=== PATIENT | male | born 1930 | race Caucasian/White ===

== ENCOUNTER 2016-06-29 18:30 | Emergency (ER) | payer MEDICARE, OTHER ==
[~2016-06-29] VITALS: Ht 167.6 cm; Wt 80.4 kg
[~2016-06-29 18:30] MED LIST: AGGR20025 PO; ALLO100 PO; AMLO5TAB96 PO; ASPI81TA82 PO; ATEN1TAB73 PO; BROV15NE INH; CALTTAB PO; CIPR500T4 PO; EZET10 PO; LEVE250 PO; LIPI80TA16 PO; MAVI1TAB PO; POTA-243 PO; SYNT25TA PO; TORS20 PO; VITA100020 IJ; XANA1TAB6 PO
[2016-06-29 18:35] VITALS: BP 155/80; PULSE 70; RESP 20; TEMP 97.9; O2SAT 96
--- NOTE | 2016-06-29 18:50 | PD ---
HPI Chief Complaint: Complaint Time Seen by Provider: 18:43 Travel History International Travel<30 days: No Contact w/Intl Traveler<30days: No Traveled to known affect area: No History of Present Illness HPI 86-year-old male here for evaluation of inability to urinate. The patient reports history of bladder cancer and prostate cancer which were treated in the past. He was seen by his urologist Dr. Silver yesterday and had cystoscopy performed. He states he was able to urinate after the procedure yesterday, however this morning he is only been able to urinate very small amounts. He has had worsening lower abdominal discomfort/pressure/bloating throughout the day today. He denies hematuria. PFSH Past Medical History Hx Anticoagulant Therapy: Yes (PLAVIX; 81 MG ASA) Arthritis: Yes Asthma: Yes Autoimmune Disease: No Blood Disorders: No Cancer: No Cardiac Catheterization: Yes (stents 2008) Cardiovascular Problems: Yes (OPEN HEART; MULTIPLE STENTS; HTN) High Cholesterol: Yes Chemotherapy: No Chest Pain: Yes Congestive Heart Failure: Yes COPD: Yes (ASBESTOSIS; EMPHYSEMA) Cerebrovascular Accident: Yes (3 TIA'S ) Coronary Artery Disease: Yes Diminished Hearing: No Endocrine: No Gastrointestinal Disorders: Yes GERD: No Gout: Yes Genitourinary: No Hiatal Hernia: No Hypertension: Yes Immune Disorder: No Implanted Vascular Access Dvce: Yes Musculoskeletal: Yes Neurologic: Yes Psychiatric: No Reproductive: No Respiratory: Yes (ASTHMA, COPD) Myocardial Infarction: Yes Radiation Therapy: No Thyroid Disease: Yes Ulcer: No PNEUMOCCOCAL Vaccine (Year): 3 Past Surgical History AICD: No Arteriovenous Shunt: No Cardiac Surgery: Yes (CABG) Coronary Artery Bypass Graft: Yes ( 1983) Eye Surgery: Yes (L & R Cataract ) Genitourinary Surgery: No Insulin Pump: No Joint Replacement: Yes (L Hip 2002) Pacemaker: No Other Surgery: Yes Social History Alcohol Use: Yes (OCC) Tobacco Use: No Substance Use: No Allergies-Medications (Allergen,Severity, Reaction): Coded Allergies: No Known Allergies (Verified , 06/29/16) Reported Meds & Prescriptions Reported Meds & Active Scripts Active Reported Mavik (Trandolapril) 1 Mg Tab 1 Mg PO DAILY Demadex (Torsemide) 20 Mg Tab 20 Mg PO DAILY Potassium Chloride CR (Potassium Chloride) 10 Meq Tab 10 Meq PO BID Vitamin B-12 ER (Cyanocobalamin) 1,000 Mcg Tab 1,000 Mcg IM/SQ DAILY Synthroid (Levothyroxine Sodium) 25 Mcg Tab 25 Mcg PO DAILY Keppra (Levetiracetam) 500 Mg Tab 500 Mg PO BID Zetia (Ezetimibe) 10 Mg Tab 10 Mg PO DAILY Aggrenox (Dipyridamole/Aspirin) 200-25 Mg Cap 1 Cap PO BID Caltrate 600 (Calcium Carbonate) 1,500 Mg Tab 1 Tab PO BID Lipitor (Atorvastatin Calcium) 80 Mg Tab 80 Mg PO HS Atenolol 25 Mg Tab 12.5 Mg PO DAILY Aspirin 81 Mg Tabdr 81 Mg PO DAILY Brovana Neb (Arformoterol Neb) 15 Mcg/2 Ml Vial 1 Nebule NEB BID Maintenance treatment of bronchoconstriction in COPD. Norvasc (Amlodipine Besylate) 10 Mg Tab 10 Mg PO DAILY Xanax (Alprazolam) 1 Mg Tab 1 Mg PO HS PRN Allopurinol 100 Mg Tab 100 Mg PO DAILY Mavik (Trandolapril) 1 Mg Tab 1 Mg PO DAILY Aspir-81 (Aspirin) 81 Mg Tab 81 Mg PO BID Keppra (Levetiracetam) 250 Mg Tab 500 Mg PO BID Brovana (Arformoterol Tartrate) 15 Mcg Neb 15 Mcg INH BID Caltrate 600+D (Calcium Carbonate/Cholecalciferol) + Tab 1 Tab PO BID Aggrenox (Dipyridamole/Aspirin) 25 Mg/200 Mg Cap 1 Cap PO DAILY ONE CAP DAILY x1 WEEK,THEN 1 CAP PO TWICE DAILY THEREAFTER. Lipitor (Atorvastatin Calcium) 80 Mg Tab 80 Mg PO DAILY Synthroid (Levothyroxine Sodium) 25 Mcg Tab 25 Mcg PO DAILY Vitamin B-12 Extended Rel (Miscellaneous Medication) 1,000 Mcg Inj 1,000 Mcg IJ MONTHLY Xanax 1 mg (Alprazolam) 1 Mg Tab 1 Mg PO HS Zetia (Ezetimibe) 10 Mg Tab 10 Mg PO DAILY Review of Systems Except as stated in HPI: all other systems reviewed are Neg Physical Exam Narrative GENERAL: Well-developed, well-nourished, moderate distress secondary to abdominal discomfort. SKIN: Warm and dry. HEAD: Atraumatic. Normocephalic. EYES: Pupils equal and round. No scleral icterus. No injection or drainage. ENT: Mucous membranes pink and moist. CARDIOVASCULAR: Regular rate and rhythm. No murmur appreciated. GASTROINTESTINAL: Abdomen soft, suprapubic tenderness with palpable distended bladder. Transabdominal bedside ultrasound was performed using the curvilinear ultrasound probe in shows a distended bladder. NEUROLOGICAL: Awake and alert. No obvious cranial nerve deficits. Motor grossly within normal limits. Normal speech. PSYCHIATRIC: Appropriate mood and affect; insight and judgment normal. Data Data Last Documented VS Vital Signs Date Time Temp Pulse Resp B/P Pulse Ox O2 Delivery O2 Flow Rate FiO2 06/29/16 18:35 97.9 70 20 155/80 96 Orders Urinary Catheter Insert/Apply (06/29/16 18:47) Urinalysis - C+S If Indicated (06/29/16 18:50) MDM Medical Decision Making Medical Screen Exam Complete: Yes Emergency Medical Condition: Yes Differential Diagnosis Urinary retention, UTI, prostatitis Narrative Course Rivera catheter placed by my nurse with over 1500 cc of clear/yellow urine output. On reassessment the patient is feeling much better. His abdomen is soft, nondistended, nontender. He was started on Cipro yesterday by his urologist. At this point he is stable for discharge home with outpatient follow -up with his urologist this week. He will be started on Flomax. He was informed on when to return to the emergency department. He verbalizes understanding and agreement with plan. Procedures Procedure Narrative Bedside transabdominal ultrasound: Using the curvilinear ultrasound probe, a bedside transabdominal ultrasound was performed by me and shows a large/fluid-filled/distended bladder. Diagnosis Primary Impression: Urinary retention Referrals: Urologist 3 days Additional Instructions: Follow-up with your urologist this week. Return to the emergency department for worsening symptoms or any other concerns. Scripts Tamsulosin (Flomax)0.4 Mg Cap0.4 Mg PO HS 14 Days Ref 0 Prov:Shaka Lawrence MD 06/29/16 Disposition: 01 DISCHARGE HOME Condition: Stable Shaka Lawrence MD Jun 29, 2016 18:50
[2016-06-29] MEDS ORDERED: AGGR20025 PO (19:09)
[2016-06-29] MEDS ORDERED: ASPI1TAB69 PO (19:09)
[2016-06-29] MEDS ORDERED: ATEN25TA PO (19:09)
[2016-06-29] MEDS ORDERED: TORS1TAB12 PO (19:09)
[2016-06-29] MEDS ORDERED: ALLO100T PO (19:09)
[2016-06-29] MEDS ORDERED: CALTTAB5 PO (19:09)
[2016-06-29] MEDS ORDERED: VITA100022 IM/SQ (19:09)
[2016-06-29] MEDS ORDERED: SYNT25TA PO (19:09)
[2016-06-29] MEDS ORDERED: AMLO10 PO (19:09)
[2016-06-29] MEDS ORDERED: ZETI10TA5 PO (19:09)
[2016-06-29] MEDS ORDERED: MAVI1TAB PO (19:09)
[2016-06-29] MEDS ORDERED: XANA1TAB2 PO (19:09)
[2016-06-29] MEDS ORDERED: LIPI80TA PO (19:09)
[2016-06-29] MEDS ORDERED: POTA10TA8 PO (19:09)
[2016-06-29] MEDS ORDERED: BROV15NE NEB (19:09)
[2016-06-29] MEDS ORDERED: LEVE500 PO (19:09)
[2016-06-29] MEDS ORDERED: CIPR-9 PO (19:12)
[2016-06-29] MEDS ORDERED: TAMS5CAP PO (19:13)
[2016-06-29] MEDS ORDERED: TAMSULOSIN HCL 0.4 MG CAP PO ONE (19:15)
[2016-06-29 19:21] VITALS: BP 128/62; PULSE 63; O2SAT 98
[2016-06-29 19:30] LABS: BLOOD, URINE LARGE (NEG); GLUCOSE,URINE NEG (NEG); KETONE, URINE NEG (NEG); NITRITE,URINE NEG (NEG)
[2016-06-29 19:59] LABS: URINE COLOR YELLOW (YELLW/STRAW)
[2016-06-29 20:00] LABS: COMMENT (UR) CATH-CULT NOT IND; CULTURE IF INDICATED CATH CULTURE NOT IND; SQUAMOUS EPITHELIAL CELL URINE 0-5 /hpf (0-5)
== END 2016-06-29 19:48 | disposition home or self-care (01) ==
LOC: PHED 18:30
DX: R33.9 Retention of urine, unspecified (principal); Z98.890 Other specified postprocedural states; Z79.01 Long term (current) use of anticoagulants; I10 Essential (primary) hypertension; E78.00 Pure hypercholesterolemia, unspecified; I50.9 Heart failure, unspecified; Z86.73 Personal history of transient ischemic attack (TIA), and cerebral infarction without residual deficits; Z85.51 Personal history of malignant neoplasm of bladder; Z85.46 Personal history of malignant neoplasm of prostate
CPT/HCPCS: 51702; 81001

== ENCOUNTER 2016-10-13 18:06 | Emergency (ER) | payer MEDICARE, OTHER ==
[~2016-10-13] VITALS: Ht 167.6 cm; Wt 81.9 kg
[~2016-10-13 18:06] MED LIST changes: -ALLO100 PO; +ALLO100T PO; +AMLO10 PO; -AMLO5TAB96 PO; +ASPI1TAB69 PO; -ASPI81TA82 PO; -ATEN1TAB73 PO; +ATEN25TA PO; -BROV15NE INH; +BROV15NE NEB; -CALTTAB PO; +CALTTAB5 PO; +CIPR-9 PO; -CIPR500T4 PO; -LEVE250 PO; +LEVE500 PO; +LIPI80TA PO; -LIPI80TA16 PO; -POTA-243 PO; +POTA10TA8 PO; +TAMS5CAP PO; +TORS1TAB12 PO; -TORS20 PO; -VITA100020 IJ; +VITA100022 IM/SQ; +XANA1TAB2 PO; -XANA1TAB6 PO; +ZETI10TA5 PO
[2016-10-13 18:07] VITALS: BP 145/77; PULSE 78; RESP 20; TEMP 98; O2SAT 96
--- NOTE | 2016-10-13 18:32 | PD ---
HPI Chief Complaint: Complaint Time Seen by Provider: 18:11 Travel History International Travel<30 days: No Contact w/Intl Traveler<30days: No Traveled to known affect area: No History of Present Illness HPI The patient is a 6-year-old male who presents emergency department for urinary retention. The patient underwent cystoscopy performed yesterday by Dr. Lamb. The patient was able to urinate afterwards, however, he did state it took him quite a bit of time to urinate. The patient was able to urinate once again this morning, however, has not urinated since this morning. He notes increasing abdominal distention and pain. He denies passage of any visible blood. The patient is already taking Flomax and is currently on Cipro that was prescribed by Dr. Lamb. He denies any fever, chills, or sweats. Symptoms are moderate, most likely exacerbated by urinary retention, and there are no current alleviating factors. The patient does have a history of urinary retention in the past and has been to the emergency department for Rivera catheter placement in the past according to the . PFSH Past Medical History Hx Anticoagulant Therapy: Yes (AGGRENOX AND ASA) Arthritis: Yes Asthma: Yes Autoimmune Disease: No Blood Disorders: No Cancer: Yes (BLADDER) Cardiac Catheterization: Yes (stents 2008) Cardiovascular Problems: Yes (OPEN HEART; MULTIPLE STENTS; HTN) High Cholesterol: Yes Chemotherapy: No Chest Pain: Yes Congestive Heart Failure: Yes COPD: Yes (ASBESTOSIS; EMPHYSEMA) Cerebrovascular Accident: Yes (3 TIA'S ) Coronary Artery Disease: Yes Diminished Hearing: No Endocrine: No Gastrointestinal Disorders: Yes GERD: No Gout: Yes Genitourinary: No Hiatal Hernia: No Hypertension: Yes Immune Disorder: No Implanted Vascular Access Dvce: Yes Musculoskeletal: Yes Neurologic: Yes Psychiatric: No Reproductive: No Respiratory: Yes (ASTHMA, COPD) Myocardial Infarction: Yes Radiation Therapy: No Thyroid Disease: Yes Ulcer: No PNEUMOCCOCAL Vaccine (Year): 3 Past Surgical History AICD: No Arteriovenous Shunt: No Cardiac Surgery: Yes (CABG) Coronary Artery Bypass Graft: Yes ( 1983: 3 VESSELS) Coronary Stent: Yes Eye Surgery: Yes (L & R Cataract ) Genitourinary Surgery: Yes (06/28/16: CYSTOCOPY WITH BIOPSIES) Insulin Pump: No Joint Replacement: Yes (L Hip 2002) Pacemaker: No Other Surgery: Yes Social History Alcohol Use: Yes (OCC) Tobacco Use: No (QUIT AGE 52) Substance Use: No Allergies-Medications (Allergen,Severity, Reaction): Coded Allergies: No Known Allergies (Verified , 10/13/16) Reported Meds & Prescriptions Reported Meds & Active Scripts Active Flomax (Tamsulosin HCl) 0.4 Mg Cap 0.4 Mg PO HS 14 Days Reported Cipro (Ciprofloxacin HCl) 500 Mg Tab 500 Mg PO BID Mavik (Trandolapril) 1 Mg Tab 1 Mg PO DAILY Demadex (Torsemide) 20 Mg Tab 20 Mg PO DAILY Potassium Chloride CR (Potassium Chloride) 10 Meq Tab 10 Meq PO BID ONE IN AM, TWO IN PM Vitamin B-12 ER (Cyanocobalamin) 1,000 Mcg Tab 1,000 Mcg IM/SQ MONTHLY Synthroid (Levothyroxine Sodium) 25 Mcg Tab 25 Mcg PO DAILY Keppra (Levetiracetam) 500 Mg Tab 500 Mg PO BID Zetia (Ezetimibe) 10 Mg Tab 10 Mg PO DAILY Aggrenox (Dipyridamole/Aspirin) 200-25 Mg Cap 1 Cap PO BID Lipitor (Atorvastatin Calcium) 80 Mg Tab 80 Mg PO HS Atenolol 25 Mg Tab 12.5 Mg PO DAILY Norvasc (Amlodipine Besylate) 10 Mg Tab 10 Mg PO DAILY Xanax (Alprazolam) 1 Mg Tab 1 Mg PO HS PRN Allopurinol 100 Mg Tab 100 Mg PO DAILY Review of Systems Except as stated in HPI: all other systems reviewed are Neg General / Constitutional: No: Fever Cardiovascular: No: Chest Pain or Discomfort Respiratory: No: Shortness of Breath Gastrointestinal: Positive: Abdominal Pain, No: Nausea, Vomiting Genitourinary: Positive: Decreased Urinary Output, Pelvic Pain Physical Exam Narrative GENERAL: Awake, alert, pleasant 86-year-old male who appears his stated age and appears in moderate discomfort. SKIN: Focused skin assessment warm/dry. HEAD: Atraumatic. Normocephalic. EYES: No injection or drainage. ENT: No nasal bleeding or discharge. Mucous membranes pink and moist. NECK: Trachea midline. No JVD. GASTROINTESTINAL: Abdomen reveals a distended bladder above the umbilicus with mild tenderness. MUSCULOSKELETAL: No obvious deformities. No clubbing. No cyanosis. No edema. NEUROLOGICAL: Awake and alert. No obvious cranial nerve deficits. Motor grossly within normal limits. Normal speech. PSYCHIATRIC: Appropriate mood and affect; insight and judgment normal. Data Data Last Documented VS Vital Signs Date Time Temp Pulse Resp B/P Pulse Ox O2 Delivery O2 Flow Rate FiO2 10/13/16 18:07 98.0 78 20 145/77 96 Orders Ua Includes Microscopic (10/13/16 18:12) Ed Poc Ultrasound (10/13/16 ) Urinary Catheter Insert/Apply (10/13/16 18:20) Cath, Leg Strap Ea (10/13/16 18:20) Bag, Leg 32oz Sterile Large Ea (10/13/16 18:20) Labs Laboratory Tests Test 10/13/16 18:30 Urine Collection Type CATH Urine Color STRAW Urine Turbidity CLEAR Urine pH 6.5 Urine Specific [place] 1.006 Urine Protein NEG mg/dL Urine Glucose (UA) NEG mg/dL Urine Ketones NEG mg/dL Urine Occult Blood TRACE Urine Nitrite NEG Urine Bilirubin NEG Urine Leukocyte Esterase NEG Urine WBC 0-2 /hpf Urine WBC Clumps OCC Microscopic Urinalysis Comment [facility] Medical Decision Making Medical Screen Exam Complete: Yes Emergency Medical Condition: Yes Medical Record Reviewed: Yes Interpretation(s) Laboratory Tests Test 10/13/16 18:30 Urine Collection Type CATH Urine Color STRAW Urine Turbidity CLEAR Urine pH 6.5 Urine Specific [place] 1.006 Urine Protein NEG mg/dL Urine Glucose (UA) NEG mg/dL Urine Ketones NEG mg/dL Urine Occult Blood TRACE Urine Nitrite NEG Urine Bilirubin NEG Urine Leukocyte Esterase NEG Urine WBC 0-2 /hpf Urine WBC Clumps OCC Microscopic Urinalysis Comment Differential Diagnosis Differential diagnosis includes urinary obstruction, obstructive uropathy, post cystoscopy complication, UTI, BPH, acute kidney injury. Narrative Course A bedside ultrasound was performed which revealed a large and distended bladder. Therefore, Rivera catheter was placed and urinary output was measured. A UA was sent to lab. The patient's initial output was immediate output of 1100 mL's, therefore, Rivera catheter was clamped for 30 minutes. UA revealed blood, no WBCs, however, few WBC clumps. The patient is artery on Cipro, we will await culture results. The patient is advised to call his urologist Sunday morning, Rivera catheter with leg bag as directed. Return if symptoms worsen or progress. Procedures Procedure Narrative A bedside ultrasound was performed using a curvilinear probe which reveals a distended bladder above the umbilicus. The patient tolerated the procedure without difficulty and there was no obvious complications. Diagnosis Primary Impression: Urinary retention Patient Instructions: General Instructions Additional Instructions: Continue Flomax and Cipro as previously directed. Rivera catheter to leg bag. Follow-up with Dr. Lamb on Sunday. Return if symptoms worsen or progress. Med/Other Pt SpecificInfo: No Change to Meds Disposition: 01 DISCHARGE HOME Condition: Stable Ander Rodriguez MD Oct 13, 2016 18:32
[2016-10-13 18:36] LABS: BLOOD, URINE TRACE (NEG); GLUCOSE,URINE NEG (NEG); KETONE, URINE NEG (NEG); NITRITE,URINE NEG (NEG); PH, URINE 6.5 (5.0-8.5)
[2016-10-13 18:41] LABS: METHOD OF COLLECTION CATH; URINE COLOR STRAW (YELLW/STRAW)
[2016-10-13 18:42] LABS: WBC, URINE 0-2 /hpf (0-5)
[2016-10-13 19:03] VITALS: BP 128/56; PULSE 68; RESP 16; O2SAT 95
== END 2016-10-13 19:30 | disposition home or self-care (01) ==
LOC: PHED 18:06
DX: R33.9 Retention of urine, unspecified (principal); Z79.01 Long term (current) use of anticoagulants; I10 Essential (primary) hypertension; I50.9 Heart failure, unspecified; E78.00 Pure hypercholesterolemia, unspecified; Z86.73 Personal history of transient ischemic attack (TIA), and cerebral infarction without residual deficits; I25.10 Atherosclerotic heart disease of native coronary artery without angina pectoris; J44.9 Chronic obstructive pulmonary disease, unspecified; I25.2 Old myocardial infarction; E07.9 Disorder of thyroid, unspecified; Z95.1 Presence of aortocoronary bypass graft; Z95.5 Presence of coronary angioplasty implant and graft
CPT/HCPCS: 51702; 81001

== ENCOUNTER 2018-01-28 06:54 | Observation (INO) ==
[2018-01-28] MEDS ORDERED: Aspirin 325 MG Tablet PO ONE (07:15)
[2018-01-28 07:41] LABS: Baso % (Auto) 0.6 % (0.0-2.0); Eos # (Auto) 0.1 th/mm3 (0.0-0.4); Eos % (Auto) 1.9 % (0.0-4.0); Hematocrit 38.1 % (39.0-51.0); Hemoglobin 12.7 gm/dL (13.0-17.0); Lymph # (Auto) 1.2 th/mm3 (1.0-4.8); Lymph % (Auto) 20.4 % (9.0-44.0); Mean Corpuscular HGB Conc 33.3 % (32.0-36.0); Mean Platelet Volume 8.6 fL (7.0-11.0); Mono # (Auto) 0.7 th/mm3 (0.0-0.9); Mono % (Auto) 10.8 % (0.0-8.0); Neut % (Auto) 66.3 % (16.0-70.0); Platelet Count 179 th/mm3 (150-450); Red Blood Count 3.85 mil/mm3 (4.50-5.90); Red Cell Distribution Width 14.3 % (11.6-17.2)
[2018-01-28 07:54] LABS: Activated Partial Thrombo Time 25.4 sec (24.3-30.1); INR 1.1 Ratio; Prothrombin Time 11.3 sec (9.8-11.6)
[2018-01-28 07:55] LABS: Carbon Dioxide 27.2 meq/L (21.0-32.0); Potassium 3.7 meq/L (3.5-5.1)
[2018-01-28] MEDS: Sod Chloride 0.9% Inj 1,000 ML IV.SIG SCH (09:29)
[2018-01-28] MEDS ORDERED: Heparin 10,000 UNITS/10 ML Vial (for IV use) ONE (09:42)
[2018-01-28] MEDS ORDERED: Heparin/NS PF Inj 1,000 ML ONE (09:43)
[2018-01-28] MEDS ORDERED: fentaNYL Citrate Inj 100 MCG/2 ML Ampul ONE (09:58)
[2018-01-28] MEDS ORDERED: Iohexol 350 MG/ML 100 ML Vial (for Cath Lab) IVCONTRAST ONE (11:25)
--- NOTE | 2018-01-28 11:25 | CATHPROC ---
Sensorin HIS Report Study Information Study Number Admission Scheduled Start Study Start [id number] Jan 28 2018 6:54AM 01/28/2018 Jan 28 2018 9:21AM [place] Service Electrophysiology Study Admit Source Facility Department Other [facility] - Ice Hockey Coach Physician and Clinical Staff Initial MD Edmonds, Raimundo Launch Engineer Burt Hayward,RN Recorder Merlene Zaidi ,RT(R) Scrub Kiley Elkins,RT(R) Procedures Performed Procedure Location (Site) Vessel Name Coronary Angiograms SVG-LAD Left Coronary Drug Eluting Inflatio SVG-LAD Left Coronary L Heart Cath PTCA SVG-LAD Left Coronary Wire insertion Radial (left) Radial Art. Wire insertion Radial (right) Radial Art. Equipment Time Billing Services Manager Description Size Mfg Part Number Used/Scraped TRANSDUCER, TRUWAVE [id number] 09:25 NEUMANN MCCORD * Used W/STOCKCOCK *[id number] 10:49 [employer] WIRE, FILTERWIRE EZ 190CM 190CM Used *[id number] 036- *[id number] -036- *[id number] WIRE, HYDROSTEER 150CM [id number] 10:10 DAIG/ST. [employer] 150CM Used ANGLED GLIDE *[id number] 09:25 MALLINCKRODT SYRINGE, ANGIOMAT 150ML 150ML *[id number] Used 2SUB [id number] 09:25 [employer] BLANKET,WARM AIR CCL * Used *[id number] 09:25 [employer] PACK, CCL CUSTOM * Used *[id number] 09:25 [employer] SUPPORT, ARTERIAL ADULT 07419 *[id number] Used [id number] 09:25 [employer] PACER PEN, SKIN DUAL W/ RULER * Used *[id number] 11:00 [employer] BALLOON, 2.5 X 20MM EUPHORA 20MM Used *[id number] 10:59 [employer] STENT, 4.0 22MM GERMAN 4.0 22MM Used *[id number] 09:26 [employer] 30 CHACHO INDEFLATOR Used *[id number] BAND, RADIAL COMPRESSION TR [id number] 11:14 [employer] 24CM Used SHORT 24 *[id number] BAND, RADIAL COMPRESSION TR [id number] 11:14 [employer] 24CM Used SHORT 24 *[id number] 09:25 [employer] WIRE, EXCHANGE 260CM 3MMJ 260CM Used *[id number] 09:25 NAMIC MANIFOLD, 4 PORT * Used *[id number] 09:25 [employer] OMNIPAQUE, 350 MG, 100ML 100ML [id number] Used 09:25 [employer] JELCO NEEDLE 4056 *[id number] Used SHEATH, FR6 TRANSRADIAL 80-1060 09:25 [employer] FR 6 Used SLENDER 10CM *[id number] SHEATH, FR6 TRANSRADIAL 80-1060 10:32 [employer] FR 6 Used SLENDER 10CM *[id number] Equipment Model, Serial, Lot Number and Expiration Data Description Model Number Serial Number Lot Number Expiration Date STENT, 4.0 22MM GERMAN [id number] 05-14-2019 WIRE, FILTERWIRE EZ 190CM [id number] 10-24-2018 WIRE, HYDROSTEER 150CM [id number] 09-13-2020 ANGLED GLIDE History: Current Medications Medication Dosage/Unit Route Frequency Last Date/Time Taken Allopurinol ASA Synthroid NTG SL Xanax Zieta NORVASC History: Allergies Allergy Reaction No Known Allergies History: Risk Factors Family History of Hypertension Dyslipidemia Previous [place] Previous Heart Failure Premature CAD Yes Yes No Yes No Prior Valve Prior PCI Prior PCIDate Prior CABG Prior CABGDate Surgery No Yes 11/13/2008 Yes 04/16/1983 Cerebrovascular Peripheral Artery Chronic Lung On Dialysis Diabetes Disease Disease Disease No Yes No Yes No History: Symptoms/Diagnosis Selection Items SOB History: CV Disease Selection Items Known CAD [place] History: Stress Tests Stress or Imaging Studies Performed No History: Arrhythmias Selection Items Atrial fibrillation History: Other Disease Selection Items CAD COPD HTN History: Other Current Smoker Method Quit Packs a Day Years Used Pack Years No Cigarettes 35 Years Ago 2 39 78 Labs Hgb (g/dl) Hct (%) WBC (l/cumm) Platelets (thousands) 11.60-17.00 35.00-51.00 4.00-11.00 150.00-450.00 12.7 38.1 6 179 Glucose (mg/dl) BUN (mg/dl) Creatinine (mg/dl) BUN:Creatinine (1:x) 74.00-106.00 7.00-18.00 0.50-1.30 10.00-20.00 99 15 1.5 10 Na (meq/l) K (meq/l) 136.00-145.00 3.50-5.10 137 3.7 INR (PTT:PT) 0.90-1.10 1.1 CPK-MB (ng/ML) 0.50-3.60 Not Drawn Medication Medication Total Dose (Bolus/Oral) Medication Total Dosage/Unit 1% XYLOCAINE 10 mL FENTANYL 50 mcg HEPARIN 3000 units PLAVIX 300 mg RADIAL COCKTAIL 10 mL (Bolus) VERSED 3 mg Medications (Bolus/Oral) Medication Time Given Dosage/Unit Administered By Reason 01/28/2018 10:01:25 1% XYLOCAINE 5 mL Raimundo Edmonds AM 5 mL 1% XYLOCAINE given in lab by Raimundo Edmonds via Subcutaneous. Ordered by Raimundo Edmonds. 01/28/2018 10:01:59 VERSED 1 mg Burt Hayward AM 1 mg VERSED given in lab by Burt Hayward RN via Peripheral IV. Ordered by Raimundo Edmonds. 01/28/2018 10:02:00 FENTANYL 50 mcg Burt Hayward AM 50 mcg FENTANYL given in lab by Burt Hayward RN via Peripheral IV. Ordered by Raimundo Edmonds. 01/28/2018 10:04:00 VERSED 1 mg Burt Hayward AM 1 mg VERSED given in lab by Burt Hayward RN via Peripheral IV. Ordered by Raimundo Edmonds. 01/28/2018 10:06:38 Ntg 200mcg Verapamil 2.5mg Heparin RADIAL COCKTAIL 5 mL (Bolus) Raimundo Edmonds AM 2000U 5 mL (Bolus) RADIAL COCKTAIL given in lab by Raimundo Edmonds via Radial. Using [Solution Name]. Ordered by Raimundo Edmonds. Reason: Ntg 200mcg Verapamil 2.5mg Heparin 2000U. 01/28/2018 10:33:29 1% XYLOCAINE 5 mL Raimundo Edmonds AM 5 mL 1% XYLOCAINE given in lab by Raimundo Edmonds in Left Radial via Subcutaneous. Ordered by Kellen Edmonds. 01/28/2018 10:35:52 VERSED 1 mg Burt Hayward AM 1 mg VERSED given in lab by Burt Hayward RN via Peripheral IV. Ordered by Raimundo Edmonds. 01/28/2018 10:38:00 Ntg 200mcg Verapamil 2.5mg Heparin RADIAL COCKTAIL 5 mL (Bolus) Raimundo Edmonds AM 2000U 5 mL (Bolus) RADIAL COCKTAIL given in lab by Raimundo Edmonds via Radial. Using [Solution Name]. Ordered by Raimundo Edmonds. Reason: Ntg 200mcg Verapamil 2.5mg Heparin 2000U. 01/28/2018 10:50:00 HEPARIN 3000 units Burt Hayward AM 3000 units HEPARIN given in lab by Burt Hayward, RN via Peripheral IV. Ordered by Raimundo Edmonds. 01/28/2018 11:22:05 PLAVIX 300 mg Burt Hayward AM 300 mg PLAVIX given in lab by Burt Hayward, RN via Oral. Ordered by Raimundo Edmonds. Medication (Drip) Medication Time Given Dosage/Unit Concentration/Unit Diluent (ml) Solutio n IV Solutions 01/28/2018 9:38:00 AM 0 mL (IV) 500 NaCl .9 Patient arrived on IV Solutions in Left Antecubital via Peripheral IV. Pump/Drip Flow = 200 ml/hr usi ng NaCl .9. Initial Case Assessment Cardiovascular HR Rhythm NIBP Chest Pain 60 reg 141/64 0 Edema Present Skin color Skin None Normal Warm Dry Circulatory - Right Pulses Dorsalis Pedis Femoral Radial 2 3 3 Scale (0,1,2,3,4,d) Circulatory - Left Pulses Dorsalis Pedis Femoral Radial 2 2 Scale (0,1,2,3,4,d) Neurological State Oriented to time-place- Alert Moves all extremities person Respiration - General Respiration Rate SpO2 (%) (B/min) 20 98 Final Case Assessment Cardiovascular HR Rhythm NIBP Chest Pain 50 reg 141/64 0 Edema Present Skin color Skin None Normal Warm Dry Circulatory - Right Pulses Dorsalis Pedis Femoral Radial 2 3 3 Scale (0,1,2,3,4,d) Circulatory - Left Pulses Dorsalis Pedis Femoral Radial 2 2 Scale (0,1,2,3,4,d) Neurological State Oriented to time-place- Alert Moves all extremities person Respiration - General Respiration Rate SpO2 (%) (B/min) 20 98 Chronological Log Time Study Chronological Log 9:37:46 Patient arrived via Bed. 9:37:46 Patient Name, D.O.B, / Armband Verified By R.N. 9:37:47 Consent signed by the physician and the patient and verified by the Ice Hockey Coach staff. 9:37:48 Pre-op and post- op instructions given; patient acknowledges understanding of instructions. 9:37:50 Verbal Stimulation=2 Physical Stimulation=2 Airway=2 Respiration=2 TOTAL=8. (0=absent, 1=li mited, 2=present) 9:37:52 Allens test performed on the right radial and ulnar artery. 9:37:53 Patient has been NPO for More than 6Hrs. 9:37:54 Skin Breakdown- none per patient 9:37:54 Patient Warmer Placed on the Table. 9:37:57 Kayley Prominences Protected 9:37:59 A # 20 IV was noted in the Antecubital (left). Grade = 0 9:38:00 Patient arrived on IV Solutions in Left Antecubital via Peripheral IV. Pump/Drip Flow = 200 ml/hr using NaCl .9. 9:38:00 History and physical on the chart or being dictated. Assessment: Initial Case, HR=60 BPM, Rhythm=reg, PNGE=171/64 mmhg, Chest Pain=0, Edema=None, Co viola=Normal, Skin = Warm, Dry Right Pulses: Tonio Ped=2, Femoral=3, Radial=3 9:38:01 Left Pulses: Tonio Ped=2, Femoral=2 Neurological: State=Alert, Ox3, OSHEA Respiration: Resp=20 B/min, SpO2=98 % Vitals capture started with the following parameters, Patient=Adult, Interval=5 min, Initial Pr nbpcrf=973 mmHg, 9:44:08 Deflation Rate=5 mmHg, Cuff placed on Left Arm 9:45:30 HR=60 bpm, XNMY=103/64 mmhg, SpO2=99.0 %, Resp=23 B/min, Pain=0, Maury=10, Hernandez=2 9:48:00 MD arrived. 9:48:49 Reference ECG taken 9:49:54 HR=60 bpm, AMAQ=877/53 mmhg, SpO2=98.0 %, Resp=19 B/min 9:52:51 Bilateral groins prepped with 2% chlorhexidine, and draped after a 3 minute waiting time. 9:55:30 HR=65 bpm, HOAV=270/65 mmhg, SpO2=98.0 %, Resp=21 B/min 9:55:59 Pressure channel 1 zeroed. 9:59:54 HR=59 bpm, FIKT=000/60 mmhg, SpO2=98.0 %, Resp=23 B/min Time Out. Correct patient, correct procedure, correct physician, labs, allergies, and equipment verified with pipelines laborer 10:00:00 team present. Fire risk assesment completed (see hard stop sheet for coding). Time Out Conc urred by MD and individual staff in procedure. 10:01:18 Case Start 10:01:25 5 mL 1% XYLOCAINE given in lab by Raimundo Edmonds via Subcutaneous. Ordered by Raimundo Edmonds. 10:01:59 1 mg VERSED given in lab by Burt Hayward RN via Peripheral IV. Ordered by Raimundo Edmonds. 10:02:00 50 mcg FENTANYL given in lab by Burt Hayward RN via Peripheral IV. Ordered by Lamont Edmonds. 10:04:00 1 mg VERSED given in lab by Burt Hayward RN via Peripheral IV. Ordered by Raimundo Edmonds. 10:04:53 HR=62 bpm, CUHM=732/58 mmhg, SpO2=91.0 %, Resp=19 B/min 10:05:49 Access site was Right Radial Artery . A SHEATH, FR6 TRANSRADIAL SLENDER 10CM FR 6 was advanced into the Radial (right) using the Perc utaneous 10:05:57 technique. 5 mL (Bolus) RADIAL COCKTAIL given in lab by Raimundo Edmonds via Radial. Using [Solution Name]. O rdered by Grey, 10:06:38 Raimundo. Reason: Ntg 200mcg Verapamil 2.5mg Heparin 2000U. 10:08:51 A AL 1 GUIDE CATHETER FR 6 was advanced over a wire. OMNIPAQUE, 350 MG, 100ML 100ML was use d for injections. 10:09:50 HR=60 bpm, NIBP=90/50 mmhg, SpO2=92.0 %, Resp=19 B/min 10:10:01 A WIRE, HYDROSTEER 150CM ANGLED GLIDE 150CM was inserted via Radial (right). 10:14:43 HR=58 bpm, NIBP=98/48 mmhg, SpO2=90.0 %, Resp=15 B/min 10:15:59 Wire removed 10:16:01 Catheter was removed 10:16:34 Abort right radial. Acessing Left radial. Radial Compression Device Used. 13 mLs of air placed in BAND, RADIAL COMPRESSION TR SHORT 24 24 CM. Affected 10:18:00 hand ~O2 SATURATION~ % O2 saturation. 10:19:46 HR=57 bpm, AHHK=357/57 mmhg, SpO2=97.0 %, Resp=27 B/min Vitals capture started with the following parameters, Patient=Adult, Interval=5 min, Initial Pr wpxdvy=121 mmHg, 10:25:48 Deflation Rate=5 mmHg, Cuff placed on Left Arm 10:26:22 HR=56 bpm, PSJL=284/45 mmhg, Resp=36 B/min 10:31:25 HR=55 bpm, LHLY=911/46 mmhg, SpO2=99.0 %, Resp=20 B/min, Pain=0, Maury=10, Hernandez=2 10:33:29 5 mL 1% XYLOCAINE given in lab by Raimundo Edmonds in Left Radial via Subcutaneous. Ordered by Raimundo Edmonds. 10:35:52 1 mg VERSED given in lab by Burt Hayward, RN via Peripheral IV. Ordered by Raimundo Edmonds. 10:36:26 HR=53 bpm, ILEM=385/47 mmhg, SpO2=98.0 %, Resp=21 B/min 5 mL (Bolus) RADIAL COCKTAIL given in lab by Raimundo Edmonds via Radial. Using [Solution Name]. O rdered by Grey, 10:38:00 Raimundo. Reason: Ntg 200mcg Verapamil 2.5mg Heparin 2000U. 10:38:10 Access site was Left Radial Artery. A SHEATH, FR6 TRANSRADIAL SLENDER 10CM FR 6 was advanced into the Radial (left) using the Jose Martin nichols 10:38:19 technique. 10:40:53 A AL 1 GUIDE CATHETER FR 6 was advanced over a wire. OMNIPAQUE, 350 MG, 100ML 100ML was use d for injections. 10:41:27 HR=56 bpm, NIBP=98/35 mmhg, SpO2=97.0 %, Resp=27 B/min Recorded Pressure: Ao, HR=57, Condition=Condition 1 10:42:50 (Aorta) Ao 98/44/64 10:46:24 HR=55 bpm, NIBP=95/46 mmhg, SpO2=98.0 %, Resp=24 B/min 10:47:44 The SVG-LAD was injected and visualized at various angles. OMNIPAQUE, 350 MG, 100ML 100ML u sed. 10:50:00 3000 units HEPARIN given in lab by Burt Hayward, RN via Peripheral IV. Ordered by Raimundo Edmonds. 10:51:23 HR=53 bpm, IKXJ=908/50 mmhg, SpO2=99.0 %, Resp=22 B/min, Pain=0, Maury=10, Hernandez=2 10:52:25 A WIRE, FILTERWIRE EZ 190CM 190CM was inserted via Radial (left). 10:55:00 Activated Clotting Time Drawn 10:56:26 HR=56 bpm, UMII=685/53 mmhg, DgU4=912.0 %, Resp=18 B/min A STENT, 4.0 22MM GERMAN 4.0 22MM was advanced through a AL 1 GUIDE CATHETER FR 6 over a WIRE, FI LTERWIRE 10:58:07 EZ 190CM 190CM. 10:59:04 Stent not deployed. Stent removed and intact. 11:01:23 A BALLOON, 2.5 X 20MM EUPHORA 20MM was inserted over WIRE, FILTERWIRE EZ 190CM 190CM via th e SVG-LAD. 11:01:25 HR=52 bpm, CDAH=043/53 mmhg, SpO2=99.0 %, Resp=30 B/min A BALLOON, 2.5 X 20MM EUPHORA 20MM over a WIRE, FILTERWIRE EZ 190CM 190CM in the SVG-LAD was in flated 11:01:29 using a 30 CHACHO INDEFLATOR at 16 chacho for 18 sec. A BALLOON, 2.5 X 20MM EUPHORA 20MM over a WIRE, FILTERWIRE EZ 190CM 190CM in the SVG-LAD was in flated 11:02:03 using a 30 CHACHO INDEFLATOR at 18 chacho for 14 sec. 11:02:54 ACT (Normal Range 90-180) = 367 11:03:20 Balloon Removed. A STENT, 4.0 22MM GERMAN 4.0 22MM was deployed using a 30 CHACHO INDEFLATOR at 14 atmospheres for 32 seconds in 11:04:32 the SVG-LAD. 11:06:28 HR=61 bpm, EOMD=025/44 mmhg, SpO2=99.0 %, Resp=13 B/min 11:06:49 Delivery device removed 11:10:31 Wire removed 11:11:21 HR=54 bpm, FPZW=457/55 mmhg, SpO2=98.0 %, Resp=20 B/min 11:12:51 Catheter was removed 11:13:01 Case End (Physician broke scrub) Assessment: Final Case, HR=50 BPM, Rhythm=reg, TVXR=488/64 mmhg, Chest Pain=0, Edema=None, Vidal r=Normal, Skin = Warm, Dry Right Pulses: Tonio Ped=2, Femoral=3, Radial=3 11:15:59 Left Pulses: Tonio Ped=2, Femoral=2 Neurological: State=Alert, Ox3, OSHEA Respiration: Resp=20 B/min, SpO2=98 % 11:16:59 Catheter(s) removed without difficulty Radial Compression Device Used. 12 mLs of air placed in BAND, RADIAL COMPRESSION TR SHORT 24 24 CM. Affected 11:17:01 hand 96 % O2 saturation. 11:17:05 HR=50 bpm, TWXI=861/34 mmhg, XgS8=076.0 %, Resp=17 B/min 11:17:31 No case complications noted. 11:17:31 Holding Area notified of successful intervention. 11:17:33 Bedside Report will be given. 11:17:34 Implantable Device card placed in patient's chart. 11:17:38 A Left Heart Cath was performed. 11:21:35 Vitals capture stopped. 11:22:05 300 mg PLAVIX given in lab by Burt Hayward, RN via Oral. Ordered by Raimundo Edmonds. 11:24:15 Patient moved to [facility] End Study - Contrast Media Used In Study Contrast Total Opened (mL) Total Used (mL) Total Wasted (mL) Omnipaque 65 65 0 End Study - Maximum Contrast Load Max Contrast Load (mL) 257.3 End Study - Radiation Exposure Fluoro Time (minutes) 17.0 End Study - Sheaths Sheaths Pulled By Sheath Hold Time (min) Kiley Elkins End Study - Patient Disposition Complications Transferred To Interventional Outcome No Critical Care Bed successful
--- NOTE | 2018-01-28 11:49 | MA ---
cc: Raimundo Edmonds MD, Ryan R MD DATE: 01/28/2018 CATHETERIZATION PROCEDURE PROCEDURES PERFORMED: Angiography of the saphenous vein graft to the mid left anterior descending coronary artery, stenting utilizing a long drug-eluting stent in the mid portion of the saphenous vein graft to the left anterior descending coronary artery. BRIEF HISTORY: Zachery Beltre is an 87-year-old man with known coronary artery and valvular heart disease. He is having staged procedures. 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 The vein graft to the LAD has high-grade disease. The [place] left main and circumflex artery has significant disease; needs a TAVR procedure as well. The plan today was to perform a staged procedure by stenting of the vein graft to the LAD and then bring him back for a separate procedure on the [place] left main. DESCRIPTION OF PROCEDURE: The patient was brought to the cardiac catheterization lab in a fasting state. He was sedated with IV Versed and fentanyl. Using 1% lidocaine for local anesthesia, access was easily obtained in the right radial artery. Unfortunately; however, the innominate artery is calcified and very difficult to get a catheter to cross through and was not oriented to be able to access the ascending aorta. I opted to abort further attempts from the right radial. The left wrist was then prepped and draped in sterile fashion. Access was straightforward and catheters went right into the ascending aorta. I used a left-1 Amplatz catheter to engage the vein graft to the late LAD. Intravenous heparin was administered with a therapeutic ACT achieved. I then tried to direct stent; the stent would not cross. Had to predilate with a 2.5 mm balloon. A FilterWire was used for the case. I then directly stented utilizing a 4.0 mm x 26 mm Alexandro stent at 14 atmospheres. Angiography demonstrates a superb result. The filter wire was removed. Followup angiography continues to enjoy good result. The patient will continue on aspirin and Plavix. We will hydrate him and keep him overnight. Anticipate discharge tomorrow if stable. FINDINGS: 1. HEMODYNAMICS: The aortic pressure is 98/44 with a mean of 64. 2. BYPASS GRAFT ANGIOGRAPHY: The saphenous vein graft to the mid LAD has a 75% long stenosis in its mid section. 3. RESULTS OF STENTING: Following stenting of the vein graft to the LAD, a 0% residual stenosis had been achieved with GRACIE 3 flow and no evidence of embolization or loss to distal branches. CONCLUSIONS: Successful uncomplicated drug-eluting stent of the saphenous vein graft to the LAD utilizing a filter wire. PLAN: The patient will continue on aspirin and Plavix. We will let him get over from the contrast load and bring him back in a couple weeks to fix his [place] left coronary artery and then the third procedure will be TAVR. MD TRI Landis/vasyl , 11:21 AM , 11:29 AM
[2018-01-28] MEDS ORDERED: Misc Info for Pharmacy OTHER SCH ×3 (12:00)
--- NOTE | 2018-01-28 13:05 | P.CON ---
History of Present Illness Service: CT Surgery Consult date: 01/28/18 Requesting Physician: James Monroe Reason for Consult: Severe symptomatic aortic stenosis Primary Care Provider: Uziel Franklin MD Chief Complaint: Exeertional dyspnea History of Present Illness: 87y/o male with h/o coronary artery disease with prior coronary artery bypass grafting x3 in 1983, [facility]. Has been having some occasional chest pain. His last time was 2 weeks ago where it was relieved with some nitroglycerin. Described more as a pressure. He has also had exertional shortness of breath. He has to take frequent breaks when he is walking or working out in the yard. He fatigues easily. He underwent a 2-D echo on 11/19/2017 which showed ejection fraction of 56%, some mild left ventricular hypertrophy. His ECHO shows severe and moderate AI.. Therefore, he underwent cardiac catheterization which included some stenosis of the iliac artery on the right. The left main had an 80% high-grade ostial stenosis. The LAD was is totally occluded proximally. The major obtuse marginal had an 80% stenosis. The distal circumflex had a 75% stenosis. The [place] right had an 80% proximal disease, totally occluded in the midsegment. The bypass graft is patent vein graft to the mid LAD. Mid portion of the graft approximately 80%. The second vein graft to the RCA, patent ostial stent. There was also some severe peripheral arterial disease. He was evaluated by Dr. Arellano and his STS risk for open surgery is ~20% mortality risk. Review of Systems Constitutional: Reports fatigue, Denies anorexia, Denies body ache(s), Denies chills, Denies daytime sleepiness, Denies excessive sweating, Denies fever(s), Denies headache(s), Denies increased appetite, Denies lack of energy, Denies malaise, Denies night sweats, Denies weakness, Denies weight gain, Denies weight loss, Denies other Eyes: Denies blind spots, Denies blurry vision, Denies bulging eyes, Denies change in vision, Denies double vision, Denies discharge, Denies dry eyes, Denies floaters, Denies irritation, Denies itchy eyes, Denies loss of vision, Denies pain, Denies requires corrective lenses, Denies sensitivity to light, Denies other Ears, Nose, Mouth, and Throat: Denies abnormal hearing, Denies bleeding gums, Denies bad breath, Denies change in voice, Denies dental pain, Denies difficulty swallowing, Denies dizziness, Denies dry mouth, Denies ear discharge , Denies ear pain, Denies facial pain, Denies headache(s), Denies hearing loss, Denies hoarseness, Denies lip swelling, Denies nosebleed, Denies mouth lesions, Denies mouth pain, Denies nasal congestion, Denies nasal discharge, Denies nasal obstruction, Denies nasal trauma, Denies neck lump, Denies neck pain, Denies nose pain, Denies pain with swallowing, Denies poor balance, Denies post nasal drip, Denies ringing in the ears, Denies sinus pain, Denies sinus pressure , Denies sore throat, Denies throat swelling, Denies tongue swelling, Denies other Cardiovascular: Reports shortness of breath, Reports shortness of breath with activity, Denies chest pain, Denies chest pain at rest, Denies chest pain with activity, Denies excessive sweating, Denies fainting, Denies fast heart rate, Denies foot swelling, Denies generalized swelling, Denies irregular heart rhythm , Denies leg pain with activity, Denies leg sores, Denies leg swelling, Denies lightheadedness, Denies radiating jaw, neck or arm pain, Denies rapid, pounding , or irregular heartbeat, Denies shortness of breath when lying down, Denies shortness of breath causing sudden awakening, Denies slow heart rate, Denies other Respiratory: Reports shortness of breath, Denies change in phlegm color, Denies chest congestion, Denies cough, Denies coughing up blood, Denies excessive phlegm production, Denies pain on inspiration, Denies pain with cough, Denies shortness of breath with activity, Denies snoring, Denies stridor, Denies wheezing, Denies other Gastrointestinal: Denies abdominal pain, Denies belching, Denies black, tarry stools, Denies bloating, Denies bright, red blood in stools, Denies change in bowel habits, Denies constant urge to pass stool, Denies change in stools, Denies coffee ground vomit, Denies constipation, Denies cramping, Denies difficulty swallowing, Denies excessive passing of gas, Denies feeling full early, Denies heartburn, Denies incontinent of stools, Denies loose stools, Denies nausea, Denies pain with swallowing, Denies vomiting, Denies vomiting blood, Denies other Genitourinary: Reports difficulty urinating, Reports frequent nighttime urination, Reports urinary frequency Musculoskeletal: Reports body aches, Denies abnormal walking, Denies back pain, Denies decreased muscle mass, Denies deformity, Denies joint pain, Denies joint swelling, Denies limited joint movement, Denies loss of height, Denies muscle cramps, Denies muscle weakness, Denies neck pain, Denies numbness, Denies radiating pain into limb, Denies stiffness, Denies tingling, Denies other Skin/Breast: Denies acne, Denies bleeding lesions, Denies boil, Denies breast swelling, Denies breast skin changes, Denies breast pain, Denies breast lump, Denies change in breast shape, Denies change in hair, Denies change in skin color, Denies changing lesions, Denies dry skin, Denies excessive hair growth, Denies hair loss, Denies itching, Denies lesions, Denies nail changes, Denies new lesions, Denies nipple discharge, Denies non-healing lesions, Denies redness , Denies sensitivity to light, Denies rash, Denies skin pain, Denies skin ulcer , Denies sores, Denies stretch white, Denies unusual bruising, Denies wounds, Denies yellowing of the skin, Denies other Neurologic: Denies abnormal hearing, Denies abnormal movements, Denies abnormal speech, Denies abnormal walking, Denies behavioral changes, Denies burning sensations, Denies confusion, Denies dizziness, Denies fainting, Denies frequent falls, Denies headache(s), Denies lack of coordination, Denies localized weakness, Denies loss of vision, Denies memory loss, Denies numbness, Denies other visual disturbances, Denies radiating pain, Denies restless legs, Denies convulsions, Denies seizure-like activity, Denies sensory deficit, Denies tingling, Denies tingling/numbness/burning sensations, Denies tremor(s), Denies unsteadiness, Denies weakness, Denies other Psychiatric: Denies abnormal sleep pattern, Denies anxiety, Denies behavioral changes, Denies change in appetite, Denies change in sex drive, Denies confusion , Denies depression, Denies difficulty concentrating, Denies hearing things others do not hear, Denies hopelessness, Denies irritability, Denies lack of enjoyment, Denies memory loss, Denies mood swings, Denies panic attacks, Denies paranoia, Denies seeing things others do not see, Denies sensing things others do not sense, Denies tactile hallucinations, Denies thoughts of hurting/killing others, Denies thoughts of hurting/killing yourself, Denies other Endocrine: Denies cold intolerance, Denies excessive sweating, Denies flushing, Denies heat intolerance, Denies increased hunger, Denies increased thirst, Denies increased urination, Denies rapid, pounding, or irregular heartbeat, Denies other Hematologic/Lymphatic: Denies easy bleeding, Denies easy bruising, Denies enlarged lymph nodes, Denies other Allergic/Immunologic: Denies GI upset with certain foods, Denies hives, Denies itchy eyes, Denies lip swelling, Denies seasonal runny nose, Denies throat swelling, Denies tongue swelling, Denies wheezing, Denies other PMFSH - History History Provided By: Patient - Medical History Medical History: Medical History (Last Reviewed 01/28/18 @ 07:39 by Lary Real) Hx of myocardial infarction PAD (peripheral artery disease) Sleep apnea Aortic stenosis Apnea BPH (benign prostatic hyperplasia) COPD (chronic obstructive pulmonary disease) CPAP (continuous positive airway pressure) dependence Carotid artery disease Coronary artery disease DJD (degenerative joint disease) First degree atrioventricular block HTN (hypertension) Hyperlipidemia Paroxysmal atrial fibrillation Rotator cuff dysfunction TIA (transient ischemic attack) - Surgical History Surgical History: Surgical History (Last Reviewed 01/28/18 @ 07:39 by Lary Real) H/O heart artery stent Hip joint replacement status S/P CABG x 2 - Family History Family History: Family History (Last Updated 12/24/17 @ 07:11 by Marisol Borja RN) Brother Asthma Myocardial infarct Hypertension Father Asthma Myocardial infarct Hypertension Sister S/P TAVR (transcatheter aortic valve replacement) Hypertension - Tobacco History Smoking Status: Former smoker - Alcohol History How Often Do You Have a Drink Containing Alcohol: Monthly or less Medications and Allergies Active Medications: Active Medications Allopurinol (Zyloprim) 100 mg PO BID [facility] Alprazolam (Xanax) 1 mg PO BID PRN PRN Reason: Anxiety Amlodipine Besylate (Norvasc) 10 mg PO DAILY [facility] Aspirin (Ecotrin) 81 mg PO DAILY [facility] Atenolol (Tenormin) 25 mg PO DAILY [facility] Atorvastatin Calcium (Lipitor) 80 mg PO DAILY [facility] Clopidogrel Bisulfate (Plavix) 75 mg PO DAILY [facility] Ezetimibe (Zetia) 10 mg PO DAILY [facility] Sodium Chloride (Ns Inj) 1,000 mls @ 30 mls/hr IV.SIG .Q24H [facility] Last Admin: 01/28/18 09:29 Dose: 200 mls/hr Sodium Chloride (Ns Inj) 1,000 mls @ 125 mls/hr IV.CONT .Q8H [facility] Levetiracetam (Keppra) 500 mg PO Q12HR [facility] Levothyroxine Sodium (Synthroid) 25 mcg PO DAILY@0600 [facility] Miscellaneous Information ([facility] [place] [facility]/Read Comments) 1 each OTHER UNSCH [facility] Pom(Asmanex (Twisthaler 110 Mcg)) 0 each INH DAILY@1800 [facility] Potassium Chloride (Klor-Con 10) 10 meq PO TID [facility] Sodium Chloride (Ns Flush) 2 ml IV.FLUSH BID [facility] Sodium Chloride (Ns Flush) 2 ml IV.FLUSH PRN PRN PRN Reason: FLUSH AFTER USING IV ACCESS Tamsulosin HCl (Flomax) 0.4 mg PO DAILY [facility] Allergies Allergy/AdvReac Type Severity Reaction Status Date / Time No Known Allergies Allergy Verified 01/28/18 07:33 Home Medications Medication Instructions Recorded Confirmed Type allopurinol 100 mg PO BID 12/24/17 01/28/18 History alprazolam [Xanax] 1 mg PO BID PRN 12/24/17 01/28/18 History amlodipine [Norvasc] 10 mg PO DAILY 12/24/17 01/28/18 History arformoterol [Brovana] 15 mcg INHALATION Q12H 12/24/17 01/28/18 History aspirin [Aspir-81] 81 mg PO DAILY 12/24/17 01/28/18 History atenolol 25 mg PO DAILY 12/24/17 01/28/18 History atorvastatin 80 mg PO DAILY 12/24/17 01/28/18 History cyanocobalamin-cobamamide [B-12 1 cc 12/24/17 History Plus] ezetimibe [Zetia] 10 mg PO DAILY 12/24/17 01/28/18 History levetiracetam [Keppra] 500 mg PO Q12H 12/24/17 01/28/18 History levothyroxine 25 mcg PO DAILY 12/24/17 01/28/18 History mometasone [Asmanex Twisthaler] 2 inh INHALATION QPM 12/24/17 01/28/18 History potassium chloride [Klor-Con 10] 10 meq PO TID 12/24/17 01/28/18 History torsemide [Demadex] 20 mg PO DAILY 12/24/17 01/28/18 History trandolapril 1 mg PO DAILY 12/24/17 01/28/18 History clopidogrel [Plavix] 75 mg PO DAILY 01/28/18 01/28/18 History tamsulosin [Flomax] 0.4 mg PO DAILY 01/28/18 01/28/18 History Physical Exam Vital signs: Vital Signs 01/28/18 07:35 01/28/18 11:30 Temperature 98.1 F Pulse Rate 72 Respiratory Rate 18 Blood Pressure 152/78 H Pulse Oximetry 98 97 Intake & Output 01/27/18 01/28/18 01/28/18 18:59 06:59 18:59 Intake Total Balance Weight 77.2 kg Intake: IV Heparin/NS PF Inj 1,000 ML @ 0 10 10 mls/hr .ROUTE .[facility] Rx#: [id number] Other: Weight On Admission 77.2 kg - Constitutional no acute distress - Routine HEENT Exam Head: Present: normocephalic, atraumatic Eye: Present: EOMI, PERRL, normal accommodation - Routine Neck Exam Present: supple, full ROM - Routine Respiratory Exam Present: CTA bilaterally - Routine Cardiovascular Exam Present: RRR, S1, S2 - Detailed Cardiovascular Exam: Murmur 1 Type: Present: holosystolic Location: Present: right sternal border Characteristics: Present: harsh - Routine Abdominal Exam Present: soft, normoactive bowel sounds - Routine Extremities Exam Present: pulses intact - Routine Skin Exam Present: intact - Routine Neurological Exam Present: alert, oriented X3, CN II-XII intact Assessment and Plan - Assessment (1) Aortic stenosis Code(s): I35.0 - Nonrheumatic aortic (valve) stenosis Status: Acute (2) Aortic insufficiency Code(s): I35.1 - Nonrheumatic aortic (valve) insufficiency Status: Acute (3) CAD (coronary artery disease) Code(s): I25.10 - Atherosclerotic heart disease of [place] coronary artery without angina pectoris Status: Acute (4) Diastolic heart failure, NYHA class 3 Code(s): I50.30 - Unspecified diastolic (congestive) heart failure Status: Acute - Plan 87y/o male presents with recurrent multivessel CAD and severe . He is having class 3 symptoms. He has been evaluated for and underwent stent placement today. He will be staged for further PCI in the next 2 weeks. He is a high risk candidate for REDO sternotomy and I recommend TAVR as soon as his CAD is addressed. Discussed Condition With: patient (2) Aortic insufficiency Qualifiers: Cardiac valve disease etiology: etiology unspecified Qualified Code(s): I35.1 - Nonrheumatic aortic (valve) insufficiency (3) CAD (coronary artery disease) Qualifiers: Coronary Disease-Associated Artery/Lesion type: bypass graft [place] vs. transplanted heart: [place] heart Associated angina: with stable angina Qualified Code(s): I25.708 - Atherosclerosis of coronary artery bypass graft(s) , unspecified, with other forms of angina pectoris
[2018-01-28] MEDS: levETIRAcetam 500 MG Tablet PO SCH ×2 (13:45→21:33)
[2018-01-28] MEDS: Sod Chloride 0.9% Inj 1,000 ML IV.CONT SCH ×2 (14:28→21:36)
[2018-01-28] MEDS ORDERED: MOMETASONE INH SCH (18:00)
[2018-01-28] MEDS: Allopurinol 100 MG Tablet PO SCH (21:33)
[2018-01-29] MEDS: Sod Chloride 0.9% Inj 1,000 ML IV.CONT SCH (05:00)
[2018-01-29 06:52] LABS: Hematocrit 33.8 % (39.0-51.0); Hemoglobin 11.3 gm/dL (13.0-17.0); Mean Corpuscular HGB Conc 33.3 % (32.0-36.0); Mean Platelet Volume 8.8 fL (7.0-11.0); Platelet Count 147 th/mm3 (150-450); Red Blood Count 3.41 mil/mm3 (4.50-5.90); Red Cell Distribution Width 13.9 % (11.6-17.2); White Blood Count 4.8 th/mm3 (4.0-11.0)
[2018-01-29 07:18] LABS: Calcium 8.1 mg/dL (8.5-10.1); Carbon Dioxide 24.3 meq/L (21.0-32.0); Potassium 4.1 meq/L (3.5-5.1)
--- NOTE | 2018-01-29 08:41 | P.PNCA ---
Subjective Interval history: No complaints Medications and Allergies Active Medications: Active Medications Allopurinol (Zyloprim) 100 mg PO BID [facility] Last Admin: 01/28/18 21:33 Dose: 100 mg Alprazolam (Xanax) 1 mg PO BID PRN PRN Reason: Anxiety Amlodipine Besylate (Norvasc) 10 mg PO DAILY [facility] Aspirin (Ecotrin) 81 mg PO DAILY [facility] Atenolol (Tenormin) 25 mg PO DAILY [facility] Atorvastatin Calcium (Lipitor) 80 mg PO DAILY [facility] Clopidogrel Bisulfate (Plavix) 75 mg PO DAILY [facility] Ezetimibe (Zetia) 10 mg PO DAILY [facility] Sodium Chloride (Ns Inj) 1,000 mls @ 30 mls/hr IV.SIG .Q24H [facility] Last Admin: 01/28/18 09:29 Dose: 200 mls/hr Sodium Chloride (Ns Inj) 1,000 mls @ 125 mls/hr IV.CONT .Q8H [facility] Last Admin: 01/29/18 05:00 Dose: 125 mls/hr Levetiracetam (Keppra) 500 mg PO Q12HR [facility] Last Admin: 01/28/18 21:33 Dose: 500 mg Levothyroxine Sodium (Synthroid) 25 mcg PO DAILY@0600 [facility] Last Admin: 01/29/18 06:24 Dose: 25 mcg Miscellaneous Information ([facility] [place] [facility]/Read Comments) 1 each OTHER UNSCH [facility] Pom(Asmanex (Twisthaler 110 Mcg)) 0 each INH DAILY@1800 [facility] Potassium Chloride (Klor-Con 10) 10 meq PO TID [facility] Last Admin: 01/28/18 19:48 Dose: 10 meq Sodium Chloride (Ns Flush) 2 ml IV.FLUSH BID [facility] Last Admin: 01/28/18 21:33 Dose: Not Given Sodium Chloride (Ns Flush) 2 ml IV.FLUSH PRN PRN PRN Reason: FLUSH AFTER USING IV ACCESS Tamsulosin HCl (Flomax) 0.4 mg PO DAILY [facility] Allergies Allergy/AdvReac Type Severity Reaction Status Date / Time No Known Allergies Allergy Verified 01/28/18 07:33 Home Medications Medication Instructions Recorded Confirmed Type allopurinol 100 mg PO BID 12/24/17 01/28/18 History alprazolam [Xanax] 1 mg PO BID PRN 12/24/17 01/28/18 History amlodipine [Norvasc] 10 mg PO DAILY 12/24/17 01/28/18 History arformoterol [Brovana] 15 mcg INHALATION Q12H 12/24/17 01/28/18 History aspirin [Aspir-81] 81 mg PO DAILY 12/24/17 01/28/18 History atenolol 25 mg PO DAILY 12/24/17 01/28/18 History atorvastatin 80 mg PO DAILY 12/24/17 01/28/18 History cyanocobalamin-cobamamide [B-12 1 cc 12/24/17 History Plus] ezetimibe [Zetia] 10 mg PO DAILY 12/24/17 01/28/18 History levetiracetam [Keppra] 500 mg PO Q12H 12/24/17 01/28/18 History levothyroxine 25 mcg PO DAILY 12/24/17 01/28/18 History mometasone [Asmanex Twisthaler] 2 inh INHALATION QPM 12/24/17 01/28/18 History potassium chloride [Klor-Con 10] 10 meq PO TID 12/24/17 01/28/18 History torsemide [Demadex] 20 mg PO DAILY 12/24/17 01/28/18 History trandolapril 1 mg PO DAILY 12/24/17 01/28/18 History clopidogrel [Plavix] 75 mg PO DAILY 01/28/18 01/28/18 History tamsulosin [Flomax] 0.4 mg PO DAILY 01/28/18 01/28/18 History Physical Exam Vital signs: Vital Signs 01/28/18 11:30 01/28/18 15:00 01/28/18 16:00 Temperature Pulse Rate 50 L 52 L Respiratory Rate 18 Blood Pressure 160/73 H Pulse Oximetry 97 96 01/28/18 17:00 01/28/18 18:00 01/28/18 19:00 Temperature Pulse Rate 52 L 56 L 68 Respiratory Rate Blood Pressure Pulse Oximetry 01/28/18 20:00 01/28/18 21:00 01/28/18 22:00 Temperature 98 F Pulse Rate 62 58 L 56 L Respiratory Rate 16 Blood Pressure 179/69 H Pulse Oximetry 97 01/28/18 23:00 01/28/18 23:41 01/29/18 00:00 Temperature 98.6 F Pulse Rate 86 64 54 L Respiratory Rate 16 Blood Pressure 115/46 L Pulse Oximetry 97 01/29/18 01:00 01/29/18 02:00 01/29/18 03:00 Temperature Pulse Rate 54 L 54 L 54 L Respiratory Rate Blood Pressure Pulse Oximetry 01/29/18 03:45 01/29/18 04:00 01/29/18 05:00 Temperature 98.5 F Pulse Rate 62 61 56 L Respiratory Rate 16 Blood Pressure 115/57 L Pulse Oximetry 94 L 01/29/18 06:00 Temperature Pulse Rate 53 L Respiratory Rate Blood Pressure Pulse Oximetry Intake & Output 01/28/18 01/29/18 01/29/18 18:59 06:59 18:59 Intake Total 2480 / 2480 Output Total 1100 / 1100 Balance 1380 / 1380 Weight 77.2 kg 78 kg Intake: IV 1999 Heparin/NS PF Inj 1,000 ML @ 0 10 / 10 mls/hr .ROUTE [facility] Rx#: [id number] NS Inj 1,000 ML @ 125 mls/hr IV 1999 .CONT .[facility] Rx#:[id number] Oral 480 / 480 Output: Urine 1100 / 1100 Other: # Bowel Movements 0 Weight On Admission 77.2 kg - Constitutional no acute distress - Routine HEENT Exam Head: Present: normocephalic, atraumatic - Routine Neck Exam Present: supple. Absent: JVD - Routine Respiratory Exam Present: CTA bilaterally. Absent: accessory muscle use - Routine Cardiovascular Exam Present: S1, S2 Comments: 2/6 severe M - Routine Abdominal Exam Present: soft - Routine Extremities Exam Absent: cyanosis, clubbing, edema Comments: radial pulses intact. no hematoma Results 01/29/18 05:45 01/29/18 05:45 Coagulation 01/28/18 Range/Units 07:23 PT 11.3 (9.8-11.6) sec APTT 25.4 (24.3-30.1) sec CBC 01/28/18 01/29/18 Range/Units 07:23 05:45 WBC 6.0 4.8 (4.0-11.0) th/mm3 RBC 3.85 L 3.41 L (4.50-5.90) mil/mm3 Hgb 12.7 L 11.3 L (13.0-17.0) gm/dL Hct 38.1 L 33.8 L (39.0-51.0) % Plt Count 179 147 L (150-450) th/mm3 Neut # (Auto) 4.0 (1.8-7.7) th/mm3 Lymph # (Auto) 1.2 (1.0-4.8) th/mm3 [place] # (Auto) 0.7 (0.0-0.9) th/mm3 Eos # (Auto) 0.1 (0.0-0.4) th/mm3 Baso # (Auto) 0.0 (0.0-0.2) th/mm3 Comprehensive Metabolic Panel 01/28/18 01/29/18 Range/Units 07:23 05:45 Sodium 137 140 (136-145) meq/L Potassium 3.7 4.1 (3.5-5.1) meq/L Chloride 101 107 (98-107) meq/L Carbon Dioxide 27.2 24.3 (21.0-32.0) meq/L BUN 15 12 (7-18) mg/dL Creatinine 1.55 H 1.15 (0.60-1.30) mg/dL Calcium 9.0 8.1 L D (8.5-10.1) mg/dL Intake and Output 01/28/18 01/29/18 01/29/18 22:59 06:59 14:59 Intake Total 1000 / 1000 1480 / 1480 Output Total 1100 / 1100 Balance 1000 / 1000 380 / 380 Intake: IV 1000 / 1000 1000 / 1000 NS Inj 1,000 ML @ 125 mls/hr IV 1000 / 1000 1000 / 1000 .CONT .Q8H [facility] Rx#:[id number] Oral 480 / 480 Output: Urine 1100 / 1100 Other: # Bowel Movements 0 Weight 78 kg Assessment and Plan - Assessment (1) Stented coronary artery Code(s): Z95.5 - Presence of coronary angioplasty implant and graft Status: Acute Plan: Cont ASA and clopidogrel (2) Chronic renal disease Code(s): N18.9 - Chronic kidney disease, unspecified Status: Acute Plan: stable s/p contrast/cath/PCI (3) Aortic stenosis Code(s): I35.0 - Nonrheumatic aortic (valve) stenosis Status: Acute (4) CAD (coronary artery disease) Code(s): I25.10 - Atherosclerotic heart disease of [place] coronary artery without angina pectoris Status: Acute - Plan DC home. Plant LM stent in about 2 weeks (4) CAD (coronary artery disease) Qualifiers: Coronary Disease-Associated Artery/Lesion type: bypass graft [place] vs. transplanted heart: [place] heart Associated angina: with stable angina Qualified Code(s): I25.708 - Atherosclerosis of coronary artery bypass graft(s) , unspecified, with other forms of angina pectoris
[2018-01-29] MEDS ORDERED: Atenolol 25 MG Tablet PO SCH (09:00)
[2018-01-29] MEDS ORDERED: amLODIPine 10 MG Tablet PO SCH (09:00)
[2018-01-29] MEDS ORDERED: Ezetimibe 10 MG Tablet PO SCH (09:00)
[2018-01-29 09:17] LABS: Lymphocytes 11 % (9-44); Monocytes 4 % (0-8)
[2018-01-29] MEDS: levETIRAcetam 500 MG Tablet PO SCH (09:17)
[2018-01-29 09:18] LABS: Acanthocytes Occ; Ovalocytes 1+; Platelet Estimate Normal (Normal); Platelet Morphology Normal (Normal)
[2018-01-29] MEDS: Sod Chloride 0.9% Inj 1,000 ML IV.SIG SCH (09:19)
[2018-01-29] MEDS: Allopurinol 100 MG Tablet PO SCH (09:19)
[2018-01-29 09:31] VITALS: BP 187/85; RESP 18; TEMP 98.3; O2SAT 97
[2018-01-29 10:12] VITALS: PULSE 70
--- NOTE | 2018-01-29 16:00 | ECG ---
Date Performed: 01/28/2018 Time Performed: 07:36:14 PTAGE: 87 years EKG: Sinus rhythm with borderline 1st degree A-V block. Since previous tracing, no significant change noted Borderline ECG PREVIOUS TRACING : 12/24/2017 07.10 DOCTOR: Hanny Medina Interpretating Date/Time 01/29/2018 15:59:03
--- NOTE | 2018-01-29 16:02 | ECG ---
Date Performed: 01/28/2018 Time Performed: 13:26:06 PTAGE: 87 years EKG: Sinus bradycardia with 1st degree A-V block Prolonged QT interval Consider left atrial abno rmality Since previous tracing, no significant change noted Abnormal ECG PREVIOUS TRACING : 01/28/2018 07.36 DOCTOR: Hanny Medina Interpretating Date/Time 01/29/2018 16:00:34
== END 2018-01-29 11:25 | disposition home or self-care (01) ==
LOC: HDIC 06:54 → HDOC 06:54 → HDIC 06:58 → HCIS 12:38
PROVIDERS: ADMIT Internal Medicine Cardiovascular Disease; ATTEND Internal Medicine Cardiovascular Disease

== ENCOUNTER 2018-02-13 05:57 | Observation (INO) ==
[2018-02-13] MEDS ORDERED: Iohexol 350 MG/ML 100 ML Vial (for Cath Lab) IVCONTRAST ONE (05:58)
[2018-02-13] MEDS ORDERED: Aspirin 325 MG Tablet PO ONE (06:30)
[2018-02-13 06:56] LABS: Baso % (Auto) 0.7 % (0.0-2.0); Eos # (Auto) 0.2 th/mm3 (0.0-0.4); Eos % (Auto) 3.3 % (0.0-4.0); Hematocrit 38.4 % (39.0-51.0); Hemoglobin 13.1 gm/dL (13.0-17.0); Lymph # (Auto) 1.7 th/mm3 (1.0-4.8); Lymph % (Auto) 24.4 % (9.0-44.0); Mean Corpuscular HGB Conc 34.2 % (32.0-36.0); Mean Corpuscular Hemoglobin 33.2 pg (27.0-34.0); Mean Corpuscular Volume 97.3 fL (80.0-100.0); Mono # (Auto) 0.6 th/mm3 (0.0-0.9); Mono % (Auto) 8.6 % (0.0-8.0); Neut # (Auto) 4.3 th/mm3 (1.8-7.7); Platelet Count 229 th/mm3 (150-450); Red Blood Count 3.95 mil/mm3 (4.50-5.90); Red Cell Distribution Width 13.6 % (11.6-17.2); White Blood Count 6.9 th/mm3 (4.0-11.0)
[2018-02-13 07:15] LABS: Calcium 9.7 mg/dL (8.5-10.1); Carbon Dioxide 30.4 meq/L (21.0-32.0); Potassium 3.6 meq/L (3.5-5.1)
[2018-02-13 07:17] LABS: Activated Partial Thrombo Time 25.3 sec (24.3-30.1); Prothrombin Time 10.5 sec (9.8-11.6)
[2018-02-13] MEDS ORDERED: Heparin/NS PF Inj 1,000 ML ONE (07:25)
[2018-02-13] MEDS ORDERED: Heparin 10,000 UNITS/10 ML Vial (for IV use) ONE (07:29)
[2018-02-13] MEDS: Sod Chloride 0.9% Inj 1,000 ML IV.SIG SCH (07:30)
[2018-02-13] MEDS ORDERED: Lidocaine PF 1% Inj 30 ML Vial ONE (07:42)
[2018-02-13] MEDS ORDERED: fentaNYL Citrate Inj 100 MCG/2 ML Ampul ONE (08:10)
[2018-02-13] MEDS ORDERED: Acetaminophen 325 MG Tablet PO PRN (09:11)
--- NOTE | 2018-02-13 09:13 | CATHPROC ---
[employer] HIS Report Study Information Study Number Admission Scheduled Start Study Start [id number] Feb 13 2018 5:57AM 02/13/2018 Feb 13 2018 7:23AM [place] [facility] STR Admit Source Facility Department Other [facility] - Medical Appointment Clerk Physician and Clinical Staff Initial Raimundo Moore [employer]er Butr Palacio,RN Recorder Merlene Zaidi ,RT(R) Scrub Kiley Elkins,RT(R) Procedures Performed Procedure Location (Site) Vessel Name Coronary Angiograms LCA Left Coronary Drug Eluting Inflatio OM2 Prox CIRC L Heart Cath PTCA OM2 Prox CIRC Wire insertion Radial (left) Radial Art. Equipment Time Industrial Workers Description Size Mfg Part Number Used/Scraped TRANSDUCER, TRUWAVE [id number] 07:28 NEUMANN MCCORD * Used W/STOCKCOCK *[id number] *[id number] 07:28 MALLINCKRODT SYRINGE, ANGIOMAT 150ML 150ML *[id number] Used 2SUB [id number] 07:28 [employer] BLANKET,WARM AIR CCL * Used *[id number] 07:28 [employer] PACK, CCL CUSTOM * Used *[id number] 07:28 [employer] SUPPORT, ARTERIAL ADULT 86084 *[id number] Used [id number] 07:28 [employer] PACER PEN, SKIN DUAL W/ RULER * Used *[id number] BALLOON, 2.25 X 15MM NC [id number] 08:45 [employer] 15MM Used EUPHORA *[id number] 08:36 [employer] STENT, 2.5 18MM GERMAN 2.5 18MM Used *[id number] 08:14 [employer]/AVE EBU 3.5 Z2 GUIDE CATHETER FR 6 Used *[id number] 08:24 [employer]/AVE EBU 4.0 Z2 GUIDE CATHETER FR 6 Used *[id number] 08:47 [employer] 30 CHACHO INDEFLATOR Used *[id number] BAND, RADIAL COMPRESSION TR [id number] 09:01 [employer] 24CM Used SHORT 24 *[id number] 07:28 [employer] WIRE, EXCHANGE 260CM 3MMJ 260CM Used *[id number] 07:28 [employer] MANIFOLD, 4 PORT * Used *[id number] 07:28 [employer] OMNIPAQUE, 350 MG, 100ML 100ML [id number] Used 07:28 [facility] JELCO NEEDLE 4056 *[id number] Used SHEATH, FR6 TRANSRADIAL [id number] 07:28 [employer] FR 6 Used SLENDER 10CM *[id number] WIRE, RUNTHROUGH NS FLOPPY [id number] 08:30 [employer] 180CM Used .014 180CM *[id number] Equipment Model, Serial, Lot Number and Expiration Data Description Model Number Serial Number Lot Number Expiration Date STENT, 2.5 18MM GERMAN [id number] 08-07-2019 History: Current Medications Medication Dosage/Unit Route Frequency Last Date/Time Taken Allopurinol ASA Synthroid NTG SL Xanax Zieta NORVASC History: Allergies Allergy Reaction No Known Allergies History: Risk Factors Family History of Hypertension Dyslipidemia Previous MA Previous Heart Failure Premature CAD Yes Yes Yes Yes No Prior Valve Prior PCI Prior PCIDate Prior CABG Prior CABGDate Surgery No Yes 01/14/2018 Yes 04/16/1983 Cerebrovascular Peripheral Artery Chronic Lung On Dialysis Diabetes Disease Disease Disease No Yes Yes Yes No History: Symptoms/Diagnosis Selection Items SOB History: CV Disease Selection Items Known CAD MA History: Stress Tests Stress or Imaging Studies Performed No History: Arrhythmias Selection Items Atrial fibrillation History: Other Disease Selection Items CAD COPD HTN History: Other Current Smoker Method Quit Packs a Day Years Used Pack Years No Cigarettes 35 Years Ago 1 39 39 Labs Hgb (g/dl) Hct (%) WBC (l/cumm) Platelets (thousands) 11.60-17.00 35.00-51.00 4.00-11.00 150.00-450.00 13.1 38.4 6.9 229 Glucose (mg/dl) BUN (mg/dl) Creatinine (mg/dl) BUN:Creatinine (1:x) 74.00-106.00 7.00-18.00 0.50-1.30 10.00-20.00 88 17 1.4 12.1 Na (meq/l) K (meq/l) 136.00-145.00 3.50-5.10 140 3.6 INR (PTT:PT) 0.90-1.10 1.1 CPK-MB (ng/ML) 0.50-3.60 Not Drawn Medication Medication Total Dose (Bolus/Oral) Medication Total Dosage/Unit 1% XYLOCAINE 5 mL FENTANYL 25 mcg HEPARIN 3000 units OXYGEN 2 l/min PLAVIX 300 mg RADIAL COCKTAIL 5 mL (Bolus) VERSED 2 mg Medications (Bolus/Oral) Medication Time Given Dosage/Unit Administered By Sveta 1% XYLOCAINE 02/13/2018 8:08:24 AM 5 mL Raimundo Edmonds 5 mL 1% XYLOCAINE given in lab by Raimundo Edmonds in Left Radial via Subcutaneous. Ordered by Kellen Edmonds. VERSED 02/13/2018 8:08:53 AM 1 mg Hakeem, Burt 1 mg VERSED given in lab by Burt Palacio RN in Right Forearm via Peripheral IV. Ordered by Kellen Edmonds. Ntg 200mcg Verapamil 2.5mg Heparin RADIAL COCKTAIL 02/13/2018 8:10:17 AM 5 mL (Bolus) Raimundo Edmonds 2500U 5 mL (Bolus) RADIAL COCKTAIL given in lab by Raimundo Edmonds via Radial. Using [Solution Name]. Ordered by Raimundo Edmonds. Reason: Ntg 200mcg Verapamil 2.5mg Heparin 2500U. FENTANYL 02/13/2018 8:11:27 AM 25 mcg Hakeem, Burt 25 mcg FENTANYL given in lab by Burt Palacio RN in Right Forearm via Peripheral IV. Ordered by Raimundo Rausch. VERSED 02/13/2018 8:13:51 AM 1 mg Hakeem, Burt 1 mg VERSED given in lab by Burt Palacio RN in Right Forearm via Peripheral IV. Ordered by Kellen Edmonds. OXYGEN 02/13/2018 8:18:09 AM 2 l/min Hakeem, Burt 2 l/min OXYGEN given in lab by Burt Palacio RN via Nasal. Ordered by Raimundo Edmonds. HEPARIN 02/13/2018 8:31:07 AM 3000 units Hakeem, Burt 3000 units HEPARIN given in lab by Burt Palacio RN via Peripheral IV. Ordered by Raimundo Edmonds. PLAVIX 02/13/2018 8:59:33 AM 300 mg Hakeem, Burt 300 mg PLAVIX given in lab by Burt Palacio RN via Oral. Ordered by Raimundo Edmonds. Medication (Drip) Medication Time Given Dosage/Unit Concentration/Unit Diluent (ml) Solution IV Solutions 02/13/2018 7:23:45 AM 50 mL (IV) NaCl .9 Patient arrived on IV Solutions via Peripheral IV. Pump/Drip Flow using NaCl .9. Initial Case Assessment Cardiovascular HR Rhythm NIBP Chest Pain 63 nsr 137/63 0 Edema Present Skin color Skin None Normal Warm Dry Circulatory - Right Pulses Dorsalis Pedis Femoral Radial 2 2 2 Scale (0,1,2,3,4,d) Scale (0,1,2,3,4,d) Neurological State Oriented to time-place- Alert Moves all extremities person Respiration - General Respiration Rate SpO2 (%) (B/min) 15 99 Final Case Assessment Cardiovascular HR Rhythm NIBP Chest Pain 63 nsr 133/68 0 Edema Present Skin color Skin None Normal Warm Dry Circulatory - Right Pulses Dorsalis Pedis Femoral Radial 2 2 2 Scale (0,1,2,3,4,d) Scale (0,1,2,3,4,d) Neurological State Oriented to time-place- Alert Moves all extremities person Respiration - General Respiration Rate SpO2 (%) (B/min) 15 99 Chronological Log Time Study Chronological Log 7:20:22 Patient arrived via Bed. 7:20:26 Patient Name, D.O.B, / Armband Verified By R.N. 7:23:29 Consent signed by the physician and the patient and verified by the Medical Appointment Clerk staff. 7:23:30 Pre-op and post- op instructions given; patient acknowledges understanding of instructions. 7:23:31 Verbal Stimulation=2 Physical Stimulation=2 Airway=2 Respiration=2 TOTAL=8. (0=absent, 1=rowe ited, 2=present) 7:23:36 Allens test performed on the left radial and ulnar artery. POSITIVE. 7:23:38 Patient has been NPO for More than 6Hrs. 7:23:39 Skin Breakdown- none per patient 7:23:40 Patient Warmer Placed on the Table. 7:23:41 Disposable Defibrillator Pads Placed On Patient. 7:23:42 Kayley Prominences Protected 7:23:44 A # 20 IV was noted in the Forearm (right). Grade = 0 7:23:45 Patient arrived on IV Solutions via Peripheral IV. Pump/Drip Flow using NaCl .9. 7:23:45 History and physical on the chart or being dictated. Assessment: Initial Case, HR=63 BPM, Rhythm=nsr, QCDZ=105/63 mmhg, Chest Pain=0, Edema=None, Col or=Normal, Skin = Warm, Dry 7:23:46 Right Pulses: Tonio Ped=2, Femoral=2, Radial=2 Neurological: State=Alert, Ox3, OSHEA Respiration: Resp=15 B/min, SpO2=99 % Vitals capture started with the following parameters, Patient=Adult, Interval=5 min, Initial Pre zuzxy=821 mmHg, 7:29:08 Deflation Rate=5 mmHg, Cuff placed on Left Arm 7:29:11 Reference ECG taken 7:29:45 HR=63 bpm, BANX=581/63 mmhg, SpO2=98.0 %, Resp=17 B/min, Pain=0, Maury=10, Hernandez=2 7:34:48 HR=64 bpm, LCXW=462/66 mmhg, SpO2=97.0 %, Resp=18 B/min 7:39:49 HR=66 bpm, RBHV=357/64 mmhg, SpO2=98.0 %, Resp=19 B/min 7:39:49 Left Radial and groin(s) prepped with 2% chlorhexidine, and draped after a 3 min. waiting ti me. 7:45:29 HR=61 bpm, UNHI=798/72 mmhg, SpO2=98.0 %, Resp=20 B/min 7:48:35 MD paged 7:49:53 HR=63 bpm, XSXT=100/63 mmhg, SpO2=97.0 %, Resp=22 B/min 7:52:22 Pressure channel 1 zeroed. 7:54:54 HR=63 bpm, KBTV=985/61 mmhg, SpO2=96.0 %, Resp=21 B/min 7:55:13 MD arrived. 7:59:49 HR=57 bpm, KGQQ=726/65 mmhg, SpO2=96.0 %, Resp=21 B/min 8:04:52 HR=64 bpm, LDPT=098/65 mmhg, SpO2=96.0 %, Resp=24 B/min Time Out. Correct patient, correct procedure, correct physician, labs, allergies, and equipment verified with veterinary laboratory diagnostician 8:07:06 team present. Fire risk assesment completed (see hard stop sheet for coding). Time Out Concu rred by MD and individual staff in procedure. 8:08:14 Case Start 8:08:24 5 mL 1% XYLOCAINE given in lab by Raimundo Edmonds in Left Radial via Subcutaneous. Ordered by Vance. Grey 8:08:53 1 mg VERSED given in lab by Burt Palacio RN in Right Forearm via Peripheral IV. Ordered by Vance. Grey 8:09:36 Access site was Left Radial Artery. A SHEATH, FR6 TRANSRADIAL SLENDER 10CM FR 6 was advanced into the Radial (left) using the Percut aneous 8:09:43 technique. 8:09:54 HR=65 bpm, PHQA=626/65 mmhg, SpO2=96.0 %, Resp=19 B/min 5 mL (Bolus) RADIAL COCKTAIL given in lab by Raimundo Edmonds via Radial. Using [Solution Name]. Or dered by Grey 8:10:17 Raimundo. Reason: Ntg 200mcg Verapamil 2.5mg Heparin 2500U. 8:11:27 25 mcg FENTANYL given in lab by Burt Palacio RN in Right Forearm via Peripheral IV. Ordered by Vance. Grey 8:13:51 1 mg VERSED given in lab by Burt Palacio RN in Right Forearm via Peripheral IV. Ordered by Vance. Grey 8:14:53 HR=66 bpm, NIBP=98/57 mmhg, SpO2=93.0 %, Resp=31 B/min, Pain=0, Maruy=10, Ehrnandez=2 A EBU 3.5 Z2 GUIDE CATHETER FR 6 was advanced over a wire. OMNIPAQUE, 350 MG, 100ML 100ML was us ed for 8:15:24 injections. Recorded Pressure: Ao, HR=63, Condition=Condition 1 8:17:45 (Aorta) Ao 86/44/61 8:18:09 2 l/min OXYGEN given in lab by Burt Palacio RN via Nasal. Ordered by Raimundo Edmonds. 8:19:41 HR=64 bpm, SQJB=118/59 mmhg, SpO2=95.0 %, Resp=24 B/min After removing the current catheter a EBU 4.0 Z2 GUIDE CATHETER FR 6 was advanced over a WIRE, E XCHANGE 8:20:21 260CM 3MMJ 260CM. 8:24:45 HR=60 bpm, XTRP=166/57 mmhg, SpO2=97.0 %, Resp=23 B/min, Pain=0, Maury=10, Hernandez=2 After removing the current catheter a XB 3.5 GUIDE CATHETER FR 6 was advanced over a WIRE, EXCHA NGE 260CM 8:26:01 3MMJ 260CM. 8:29:48 HR=62 bpm, GCSD=184/61 mmhg, SpO2=97.0 %, Resp=23 B/min 8:30:50 The LCA was injected and visualized at various angles. OMNIPAQUE, 350 MG, 100ML 100ML used. 8:31:07 3000 units HEPARIN given in lab by Burt Palacio RN via Peripheral IV. Ordered by Sheree Edmonds. 8:32:09 A WIRE, RUNTHROUGH NS FLOPPY .014 180CM 180CM was inserted via Radial (left). 8:34:49 HR=60 bpm, JHSB=269/60 mmhg, SpO2=97.0 %, Resp=25 B/min 8:35:57 Interventional wire has crossed the lesion 8:37:49 Activated Clotting Time Drawn 8:39:48 HR=58 bpm, BLYV=947/61 mmhg, SpO2=98.0 %, Resp=20 B/min A STENT, 2.5 18MM GERMAN 2.5 18MM was advanced through a XB 3.5 GUIDE CATHETER FR 6 over a WIRE, 8:41:17 RUNTHROUGH NS FLOPPY .014 180CM 180CM. 8:42:57 Stent not deployed. Stent removed and intact. 8:44:28 ACT (Normal Range 90-180) = 429 8:44:49 HR=57 bpm, YGHK=959/63 mmhg, SpO2=98.0 %, Resp=23 B/min, Pain=0, Maury=10, Hernandez=2 A BALLOON, 2.25 X 15MM NC EUPHORA 15MM was inserted over WIRE, RUNTHROUGH NS FLOPPY .014 180CM 8:45:07 180CM via the Radial (left). A BALLOON, 2.25 X 15MM NC EUPHORA 15MM over a WIRE, RUNTHROUGH NS FLOPPY .014 180CM 180CM in the 8:46:09 OM2 Prox was inflated using a 30 CHACHO INDEFLATOR at 20 chacho for 34 sec. 8:47:57 Balloon Removed. A STENT, 2.5 18MM GERMAN 2.5 18MM was advanced through a XB 3.5 GUIDE CATHETER FR 6 over a WIRE, 8:49:51 RUNTHROUGH NS FLOPPY .014 180CM 180CM. 8:49:52 HR=55 bpm, ADRY=056/64 mmhg, SpO2=98.0 %, Resp=21 B/min A STENT, 2.5 18MM GERMAN 2.5 18MM was deployed using a 30 CHACHO INDEFLATOR at 14 atmospheres for 30 seconds in 8:50:53 the OM2 Prox. 8:52:02 Delivery device removed 8:54:26 Wire removed 8:54:48 Catheter was removed 8:54:53 HR=55 bpm, DIJJ=991/68 mmhg, SpO2=99.0 %, Resp=27 B/min 8:54:59 Case End (Physician broke scrub) Assessment: Final Case, HR=63 BPM, Rhythm=nsr, TUEA=465/68 mmhg, Chest Pain=0, Edema=None, Col or=Normal, Skin = Warm, Dry 8:55:35 Right Pulses: Tonio Ped=2, Femoral=2, Radial=2 Neurological: State=Alert, Ox3, OSHEA Respiration: Resp=15 B/min, SpO2=99 % 8:56:04 Catheter(s) removed without difficulty Radial Compression Device Used. 11 mLs of air placed in BAND, RADIAL COMPRESSION TR SHORT 24 2 4CM. Affected 8:56:06 hand 98 % O2 saturation. 8:56:15 No case complications noted. 8:56:15 Cine recording checked. 8:56:16 Bedside Report will be given. 8:56:18 Implantable Device card placed in patient's chart. 8:56:21 A Left Heart Cath was performed. 8:59:33 300 mg PLAVIX given in lab by Burt Palacio RN via Oral. Ordered by Raimundo Edmonds. 8:59:52 HR=54 bpm, JHYT=638/74 mmhg, SpO2=99.0 %, Resp=22 B/min 9:09:22 [facility] to [facility] End Study - Contrast Media Used In Study Contrast Total Opened (mL) Total Used (mL) Total Wasted (mL) Omnipaque 60 60 0 End Study - Maximum Contrast Load Max Contrast Load (mL) 275.0 End Study - Radiation Exposure Fluoro Time (minutes) 14.8 End Study - Sheaths Sheaths Pulled By Sheath Hold Time (min) Kiely Elkins End Study - Patient Disposition Complications Transferred To Interventional Outcome No Telemetry Bed successful
[2018-02-13] MEDS: Sod Chloride 0.9% Inj 1,000 ML IV.CONT SCH ×3 (10:00→21:03)
[2018-02-13] MEDS ORDERED: Misc Info for Pharmacy OTHER SCH (10:00)
--- NOTE | 2018-02-13 10:20 | MA ---
cc: Raimundo Edmonds MD,Jeet Buchanan,Magali Franklin,Uziel Crawford MD DATE: 02/13/2018 PROCEDURES PERFORMED: Left coronary angiography, balloon angioplasty, and stenting of the mid left circumflex into the large second obtuse marginal branch of the left circumflex coronary artery. BRIEF HISTORY: Zachery Beltre is an 87-year-old man with severe aortic stenosis, severe peripheral arterial disease, and severe coronary artery disease. He also has renal insufficiency. He is having staged coronary revascularization procedures, followed by a TAVR procedure. Two weeks ago, he underwent stenting of the vein graft to the LAD with good results. He comes in now for revascularization of the left main and circumflex artery. DESCRIPTION OF PROCEDURE: The patient was brought to the cardiac catheterization lab in fasting state. He was sedated with IV Versed and IV fentanyl. Using 1% lidocaine for local anesthesia, access was easily obtained in the left radial artery, and a Terumo slender sheath placed. Next, I introduced an EBU 3.5, and an EBU 4.0 guiding catheter, but was not able to engage the left main with either one of these. I then exchanged to an XB 3.5 guide, and with some manipulation, was able to successfully engage the left main. Angiography was then performed of the left coronary artery. The initial surprise was that there was not an ostial left main lesion, but the mid circumflex lesion extending into the large second obtuse marginal branch appeared severe. I opted to revascularize that. Intravenous heparin was given with a therapeutic ACT achieved. The circumflex was wired with a Runthrough wire. I tried a direct stent, but the stent would not cross. I then predilated with a 2.25 Noncompliant balloon at high pressure. I then stented the circumflex with a 2.5 x 15 mm Alexandro stent extending from the mid circ into the second obtuse marginal branch. The small distal circumflex vessel was diseased and this was jailed. Stent was deployed at 14 atmospheres. There was an excellent result with a nice step-up on both ends of the stent. The patient had no chest pain. I decided to stop the procedure at this point. Guiding catheter was removed. Terumo band was placed on the wrist. He is being watched under observation, because of his renal insufficiency with IV hydration overnight. HEMODYNAMICS: 1. Initial aortic pressure was 86/44 with a mean of 61. He had mild sinus bradycardia as well. 2. Coronary angiography: Left main coronary artery does not have high-grade ostial disease. There is only about 20% disease in the left main. The LAD is totally occluded proximally. Circumflex artery gives off an atrial branch and a small first obtuse marginal branch. Then, in the mid circumflex, it comes off a large second obtuse marginal branch, and a somewhat diffusely diseased distal circumflex vessel that is small. The origin of the second obtuse marginal branch has 80% calcific disease. 3. Results of stenting: Following stenting of the circumflex marginal branch, a 0% residual stenosis had been achieved. CONCLUSION: Today's procedure completes his coronary revascularization. The LAD graft has now been successfully stented, and now the circumflex has been successfully stented. The left main does not require revascularization. RECOMMENDATIONS: The patient is now ready for his TAVR in 2 weeks. We will admit him overnight for hydration. MD TRI Landis/gurdeep , 09:09 AM , 09:18 AM
--- NOTE | 2018-02-13 13:26 | ECG ---
Date Performed: 02/13/2018 Time Performed: 06:43:42 PTAGE: 87 years EKG: Sinus rhythm with borderline 1st degree A-V block. Borderline ECG PREVIOUS TRACING : 01/28/2018 13.26 DOCTOR: James Monroe Interpretating Date/Time 02/13/2018 13:24:53
[2018-02-13] MEDS ORDERED: MOMETASONE INH SCH (18:00)
[2018-02-13] MEDS ORDERED: ARFORMOTEROL 15 MCG INH SCH (21:00)
[2018-02-13] MEDS: Allopurinol 100 MG Tablet PO SCH (21:03)
[2018-02-13] MEDS: levETIRAcetam 500 MG Tablet PO SCH (21:03)
[2018-02-14] MEDS: Sod Chloride 0.9% Inj 1,000 ML IV.CONT SCH ×2 (03:24→05:36)
[2018-02-14 04:09] VITALS: RESP 16
[2018-02-14 05:52] LABS: Baso % (Auto) 0.7 % (0.0-2.0); Eos # (Auto) 0.1 th/mm3 (0.0-0.4); Eos % (Auto) 3.1 % (0.0-4.0); Hematocrit 34.3 % (39.0-51.0); Hemoglobin 11.8 gm/dL (13.0-17.0); Lymph # (Auto) 0.9 th/mm3 (1.0-4.8); Lymph % (Auto) 19.9 % (9.0-44.0); Mean Corpuscular HGB Conc 34.3 % (32.0-36.0); Mean Corpuscular Hemoglobin 33.7 pg (27.0-34.0); Mean Corpuscular Volume 98.3 fL (80.0-100.0); Mean Platelet Volume 8.8 fL (7.0-11.0); Mono # (Auto) 0.5 th/mm3 (0.0-0.9); Mono % (Auto) 10.1 % (0.0-8.0); Neut % (Auto) 66.2 % (16.0-70.0); Platelet Count 184 th/mm3 (150-450); Red Blood Count 3.49 mil/mm3 (4.50-5.90); Red Cell Distribution Width 13.6 % (11.6-17.2); White Blood Count 4.5 th/mm3 (4.0-11.0)
[2018-02-14] MEDS: Sod Chloride 0.9% Inj 1,000 ML IV.SIG SCH (06:08)
[2018-02-14 06:28] LABS: Calcium 8.3 mg/dL (8.5-10.1); Carbon Dioxide 29.3 meq/L (21.0-32.0); Potassium 4.3 meq/L (3.5-5.1)
[2018-02-14] MEDS: levETIRAcetam 500 MG Tablet PO SCH (08:46)
[2018-02-14] MEDS: Allopurinol 100 MG Tablet PO SCH (08:46)
--- NOTE | 2018-02-14 08:50 | P.PNCA ---
Subjective Interval history: No complaints Medications and Allergies Active Medications: Active Medications Acetaminophen (Tylenol) 325 mg PO Q4H PRN PRN Reason: PAIN SCALE 1 TO 2 Allopurinol (Zyloprim) 100 mg PO BID [facility] Last Admin: 02/14/18 08:46 Dose: 100 mg Alprazolam (Xanax) 1 mg PO BID PRN PRN Reason: Anxiety Amlodipine Besylate (Norvasc) 10 mg PO DAILY [facility] Last Admin: 02/14/18 08:46 Dose: 10 mg Aspirin (Aspirin Chew) 81 mg PO DAILY [facility] Last Admin: 02/14/18 08:46 Dose: 81 mg Atenolol (Tenormin) 25 mg PO DAILY [facility] Last Admin: 02/14/18 08:46 Dose: 25 mg Atorvastatin Calcium (Lipitor) 80 mg PO DAILY [facility] Last Admin: 02/14/18 08:46 Dose: 80 mg Clopidogrel Bisulfate (Plavix) 75 mg PO DAILY [facility] Last Admin: 02/14/18 08:46 Dose: 75 mg Ezetimibe (Zetia) 10 mg PO DAILY [facility] Last Admin: 02/14/18 08:46 Dose: 10 mg Sodium Chloride (Ns Inj) 1,000 mls @ 30 mls/hr IV.SIG .Q24H [facility] Last Admin: 02/14/18 06:08 Dose: Not Given Sodium Chloride (Ns Inj) 1,000 mls @ 100 mls/hr IV.CONT .Q10H [facility] Last Admin: 02/14/18 05:36 Dose: Not Given Levetiracetam (Keppra) 500 mg PO Q12HR [facility] Last Admin: 02/14/18 08:46 Dose: 500 mg Levothyroxine Sodium (Synthroid) 25 mcg PO DAILY@0600 [facility] Last Admin: 02/14/18 05:36 Dose: 25 mcg Lisinopril (Prinivil) 5 mg PO DAILY [facility] Last Admin: 02/14/18 08:46 Dose: 5 mg Ondansetron HCl (Zofran Inj) 4 mg IV.PUSH Q6H PRN PRN Reason: NAUSEA Pt Own Med: Arformoterol [ Brovana] 15 Mcg 0 each INH Q12HR [facility] Pt Own Med: Mometasone [Asmanex Twisthaler] 2 Inh) 0 each INH QPM [facility] Potassium Chloride (Klor-Con 10) 10 meq PO TID [facility] Last Admin: 02/14/18 08:46 Dose: 10 meq Sodium Chloride (Ns Flush) 2 ml IV.FLUSH BID [facility] Last Admin: 02/14/18 08:47 Dose: Not Given Sodium Chloride (Ns Flush) 2 ml IV.FLUSH PRN PRN PRN Reason: FLUSH AFTER USING IV ACCESS Tamsulosin HCl (Flomax) 0.4 mg PO DAILY [facility] Last Admin: 02/14/18 08:46 Dose: 0.4 mg Allergies Allergy/AdvReac Type Severity Reaction Status Date / Time No Known Allergies Allergy Verified 02/03/18 10:33 Home Medications Medication Instructions Recorded Confirmed Type allopurinol 100 mg PO BID 12/24/17 02/13/18 History alprazolam [Xanax] 1 mg PO BID PRN 12/24/17 02/13/18 History amlodipine [Norvasc] 10 mg PO DAILY 12/24/17 02/13/18 History arformoterol [Brovana] 15 mcg INHALATION Q12H 12/24/17 02/13/18 History aspirin [Aspir-81] 81 mg PO DAILY 12/24/17 02/13/18 History atenolol 25 mg PO DAILY 12/24/17 02/13/18 History atorvastatin 80 mg PO DAILY 12/24/17 02/13/18 History cyanocobalamin-cobamamide [B-12 1 cc 12/24/17 History Plus] levetiracetam [Keppra] 500 mg PO Q12H 12/24/17 02/13/18 History levothyroxine 25 mcg PO DAILY 12/24/17 02/13/18 History mometasone [Asmanex Twisthaler] 2 inh INHALATION QPM 12/24/17 02/13/18 History torsemide [Demadex] 20 mg PO DAILY 12/24/17 02/13/18 History trandolapril 1 mg PO DAILY 12/24/17 02/13/18 History clopidogrel [Plavix] 75 mg PO DAILY 01/28/18 02/13/18 History tamsulosin [Flomax] 0.4 mg PO DAILY 01/28/18 02/13/18 History nitroglycerin [Nitrostat] See Label Instructions .ROUTE 02/13/18 02/13/18 History .COMPLEX Physical Exam Vital signs: Vital Signs 02/13/18 09:12 02/13/18 15:00 02/13/18 16:00 Temperature 97.9 F Pulse Rate 64 56 L Respiratory Rate 18 Blood Pressure 136/87 Pulse Oximetry 99 100 02/13/18 19:00 02/13/18 20:00 02/13/18 21:00 Temperature 98.5 F Pulse Rate 56 L 56 L 58 L Respiratory Rate 14 Blood Pressure 155/74 H Pulse Oximetry 98 02/13/18 22:00 02/13/18 23:00 02/14/18 00:00 Temperature 98 F Pulse Rate 57 L 59 L 58 L Respiratory Rate 14 Blood Pressure 139/79 Pulse Oximetry 98 02/14/18 01:00 02/14/18 02:00 02/14/18 03:00 Temperature Pulse Rate 60 66 71 Respiratory Rate Blood Pressure Pulse Oximetry 02/14/18 04:00 02/14/18 05:00 02/14/18 06:00 Temperature 97.6 F Pulse Rate 56 L 65 55 L Respiratory Rate 16 Blood Pressure 138/63 Pulse Oximetry 97 Intake & Output 02/13/18 02/14/18 02/14/18 18:59 06:59 18:59 Intake Total 2185 / 2185 1090 / 1090 Output Total 1300 / 1300 Balance 885 / 885 1090 / 1090 Weight 76 kg Intake: IV 1005 / 1005 850 / 850 Heparin/NS PF Inj 1,000 ML @ 0 5 / 5 mls/hr .ROUTE .STK-MED ONE Rx#: [id number] NS Inj 1,000 ML @ 100 mls/hr IV 1000 / 1000 850 / 850 .CONT .Q10H [facility] Rx#:[id number] Oral 1180 / 1180 240 / 240 Output: Urine 1300 / 1300 Other: # Voids 3 Date of Last Bowel Movement 02/14/18 # Bowel Movements 1 - Constitutional no acute distress - Routine HEENT Exam Head: Present: normocephalic - Routine Neck Exam Present: supple, full ROM. Absent: JVD - Routine Respiratory Exam Present: CTA bilaterally. Absent: accessory muscle use - Routine Cardiovascular Exam Present: RRR, S1, S2 Comments: 2/6 severe M - Routine Abdominal Exam Present: soft - Routine Extremities Exam Absent: cyanosis, clubbing, edema Comments: left wrist OK Results 02/14/18 05:20 02/14/18 05:20 Coagulation 02/13/18 Range/Units 06:25 PT 10.5 (9.8-11.6) sec APTT 25.3 (24.3-30.1) sec CBC 02/13/18 02/14/18 Range/Units 06:25 05:20 WBC 6.9 4.5 (4.0-11.0) th/mm3 RBC 3.95 L 3.49 L (4.50-5.90) mil/mm3 Hgb 13.1 11.8 L (13.0-17.0) gm/dL Hct 38.4 L 34.3 L (39.0-51.0) % Plt Count 229 D 184 (150-450) th/mm3 Neut # (Auto) 4.3 3.0 (1.8-7.7) th/mm3 Lymph # (Auto) 1.7 0.9 L (1.0-4.8) th/mm3 [place] # (Auto) 0.6 0.5 (0.0-0.9) th/mm3 Eos # (Auto) 0.2 0.1 (0.0-0.4) th/mm3 Baso # (Auto) 0.0 0.0 (0.0-0.2) th/mm3 Comprehensive Metabolic Panel 02/13/18 02/14/18 Range/Units 06:25 05:20 Sodium 140 143 (136-145) meq/L Potassium 3.6 4.3 (3.5-5.1) meq/L Chloride 102 108 H (98-107) meq/L Carbon Dioxide 30.4 29.3 (21.0-32.0) meq/L BUN 17 14 (7-18) mg/dL Creatinine 1.46 H 1.26 (0.60-1.30) mg/dL Calcium 9.7 8.3 L D (8.5-10.1) mg/dL Intake and Output 02/13/18 02/14/18 02/14/18 22:59 06:59 14:59 Intake Total 2180 / 2180 1090 / 1090 Output Total 1300 / 1300 Balance 880 / 880 1090 / 1090 Intake: IV 1000 / 1000 850 / 850 NS Inj 1,000 ML @ 100 mls/hr IV 1000 / 1000 850 / 850 .CONT .Q10H [facility] Rx#:[id number] Oral 1180 / 1180 240 / 240 Output: Urine 1300 / 1300 Other: # Voids 3 Date of Last Bowel Movement 02/14/18 # Bowel Movements 1 Weight 76 kg Assessment and Plan - Assessment (1) Aortic stenosis Code(s): I35.0 - Nonrheumatic aortic (valve) stenosis Status: Acute Plan: ready for TAVR in 2 weeks (2) CAD (coronary artery disease) Code(s): I25.10 - Atherosclerotic heart disease of [place] coronary artery without angina pectoris Status: Acute Plan: cont present meds (3) Stented coronary artery Code(s): Z95.5 - Presence of coronary angioplasty implant and graft Status: Acute Plan: Cont ASA/ clopidogrel (4) Chronic renal disease Code(s): N18.9 - Chronic kidney disease, unspecified Status: Acute Plan: creat stable - Plan DC home (2) CAD (coronary artery disease) Qualifiers:
[2018-02-14] MEDS ORDERED: amLODIPine 10 MG Tablet PO SCH (09:00)
[2018-02-14] MEDS ORDERED: Atenolol 25 MG Tablet PO SCH (09:00)
[2018-02-14] MEDS ORDERED: Lisinopril 5 MG Tablet PO SCH (09:00)
[2018-02-14] MEDS ORDERED: Ezetimibe 10 MG Tablet PO SCH (09:00)
[2018-02-14 09:21] VITALS: BP 156/74; TEMP 98.4; O2SAT 98
[2018-02-14 10:05] VITALS: PULSE 55
== END 2018-02-14 11:54 | disposition home or self-care (01) ==
LOC: HDIC 05:57 → HDOC 05:57 → HDIC 05:59 → HCIS 15:03
PROVIDERS: ADMIT Internal Medicine Cardiovascular Disease; ATTEND Internal Medicine Cardiovascular Disease

== ENCOUNTER 2018-02-27 05:25 | Inpatient (IN) ==
[2018-02-25 14:40] LABS: Baso % (Auto) 0.6 % (0.0-2.0); Eos # (Auto) 0.1 th/mm3 (0.0-0.4); Eos % (Auto) 1.6 % (0.0-4.0); Hematocrit 36.9 % (39.0-51.0); Hemoglobin 12.7 gm/dL (13.0-17.0); Lymph % (Auto) 17.1 % (9.0-44.0); Mean Corpuscular HGB Conc 34.3 % (32.0-36.0); Mean Corpuscular Hemoglobin 33.4 pg (27.0-34.0); Mean Corpuscular Volume 97.6 fL (80.0-100.0); Mean Platelet Volume 8.9 fL (7.0-11.0); Mono # (Auto) 0.7 th/mm3 (0.0-0.9); Mono % (Auto) 11.7 % (0.0-8.0); Neut # (Auto) 4.2 th/mm3 (1.8-7.7); Platelet Count 185 th/mm3 (150-450); Red Blood Count 3.79 mil/mm3 (4.50-5.90); White Blood Count 6.1 th/mm3 (4.0-11.0)
[2018-02-25 14:50] LABS: INR 1.1 Ratio; Prothrombin Time 10.9 sec (9.8-11.6)
[2018-02-25 15:03] LABS: Calcium 9.1 mg/dL (8.5-10.1); Carbon Dioxide 30.1 meq/L (21.0-32.0); Potassium 3.8 meq/L (3.5-5.1)
[2018-02-27] MEDS ORDERED: Chlorhexidine Gluconate 2% 1 Pack (2 Cloths) TOPICAL ONE (05:53)
[2018-02-27] MEDS ORDERED: Metoprolol Tartrate 25 MG Tablet PO ONE (05:53)
[2018-02-27] MEDS ORDERED: Mupirocin 2% Nasal Oint Topical Syringe EACH NARE SCH (06:00)
[2018-02-27] MEDS ORDERED: Aspirin 325 MG Tablet PO SCH (06:00)
[2018-02-27] MEDS ORDERED: Sodium Chlor 0.9% Inj 500 ML IV.SIG SCH (06:00)
[2018-02-27] MEDS ORDERED: Sod Chloride 0.9% Inj 1,000 ML IV.SIG SCH (06:00)
[2018-02-27] MEDS ORDERED: Protamine Sulfate Inj 50 MG/5 ML Vial ONE (06:38)
[2018-02-27] MEDS ORDERED: Heparin 10,000 UNITS/10 ML Vial (for IV use) ONE (06:38)
[2018-02-27] MEDS ORDERED: Lidocaine PF 1% Inj 5 ML Syringe OTHER ONE (07:16)
[2018-02-27] MEDS ORDERED: Normosol-R pH 7.4 Inj 1,000 ML IV.CONT ONE (07:16)
[2018-02-27] MEDS ORDERED: Phenylephrine/NS 1000 MCG/10ML Syringe IV.PUSH ONE ×2 (07:16→17:36)
--- NOTE | 2018-02-27 07:37 | P.HPCA ---
History of Present Illness Service: Cardiology Primary Care Physician: Uziel Franklin MD Chief Complaint: Aortic valve stenosis History of Present Illness: This is an 87-year-old male with history of hypertension, hyperlipidemia, paroxysmal atrial fibrillation, transient ischemic attack, coronary artery disease and prior coronary artery bypass surgery 1983 along with percutaneous coronary intervention, severe peripheral arterial disease, obstructive sleep apnea who presents with progressive shortness of breath. Transthoracic echocardiogram performed in November 2017 showed preserved left ventricular systolic function with moderate aortic insufficiency and severe aortic valve stenosis. Patient was felt to be high perioperative surgical risk and referred for consideration of transcatheter aortic valve replacement. He is here today for elective procedure. - Diagnosis (1) Aortic stenosis (2) Diastolic heart failure, NYHA class 3 Inpatient Certification: I certify that the inpatient services were ordered in accordance with Medicare regulations governing the order. This includes certification that hospital inpatient services are reasonable and necessary and in the case of services not specified as inpatient-only under 42 CFR 419.22(n), that they are appropriately provided as inpatient services in accordance to with the 2-midnight benchmark under 43 CFR 412.3(e) Estimated Total Length of Stay (Days): 3 Plans for Post Hospital Care: Home Review of Systems All other systems reviewed negative except as stated in HPI PMFSH - History History Provided By: Patient, Family Member - Medical History Medical History: Medical History (Last Reviewed 02/03/18 @ 10:56 by MILAD Muñoz) Aortic stenosis Apnea BPH (benign prostatic hyperplasia) COPD (chronic obstructive pulmonary disease) CPAP (continuous positive airway pressure) dependence Carotid artery disease Coronary artery disease DJD (degenerative joint disease) First degree atrioventricular block HTN (hypertension) Hx of myocardial infarction Hyperlipidemia PAD (peripheral artery disease) Paroxysmal atrial fibrillation Rotator cuff dysfunction Sleep apnea TIA (transient ischemic attack) - Surgical History Surgical History: Surgical History (Last Reviewed 01/28/18 @ 07:39 by Lary Real) H/O heart artery stent Hip joint replacement status S/P CABG x 2 - Family History Family History: Family History (Last Updated 12/24/17 @ 07:11 by Marisol Borja RN) Brother Asthma Myocardial infarct Hypertension Father Asthma Myocardial infarct Hypertension Sister S/P TAVR (transcatheter aortic valve replacement) Hypertension - Tobacco History Smoking Status: Unknown if ever smoked - Alcohol History How Often Do You Have a Drink Containing Alcohol: Monthly or less - Substance Use History Substance History: No History of Abuse Medications and Allergies Active Medications: Active Medications Aspirin (Aspirin) 325 mg PO [facility] Stop: 02/27/18 14:00 Lactated Ringer's (Lr 1000 Ml Inj) 1,000 mls @ 30 mls/hr IV.SIG .Q24H [facility] Stop: 02/28/18 05:59 Sodium Chloride (Ns Inj) 500 mls @ 30 mls/hr IV.SIG .Q10H [facility] Sodium Chloride (Ns Inj) 1,000 mls @ 125 mls/hr IV.SIG .Q8H [facility] Cefazolin Sodium/Dextrose (Ancef 2 Gm Premix Inj) 2 gm in 50 mls @ 150 mls/hr IV.SIG [facility] Stop: 02/27/18 14:00 Mupirocin (Bactroban 2% Nasal Oint) 1 applicatio EACH NARE [facility] Stop: 02/27/18 14:00 Allergies Allergy/AdvReac Type Severity Reaction Status Date / Time No Known Allergies Allergy Verified 02/03/18 10:33 Home Medications Medication Instructions Recorded Confirmed Type allopurinol 100 mg PO BID 12/24/17 02/27/18 History alprazolam [Xanax] 1 mg PO BID PRN 12/24/17 02/27/18 History amlodipine [Norvasc] 10 mg PO DAILY 12/24/17 02/27/18 History arformoterol [Brovana] 15 mcg INHALATION Q12H 12/24/17 02/27/18 History atenolol 25 mg PO DAILY 12/24/17 02/27/18 History atorvastatin 80 mg PO DAILY 12/24/17 02/27/18 History cyanocobalamin-cobamamide [B-12 1 cc 12/24/17 History Plus] levetiracetam [Keppra] 500 mg PO Q12H 12/24/17 02/27/18 History levothyroxine 25 mcg PO DAILY 12/24/17 02/27/18 History mometasone [Asmanex Twisthaler] 2 inh INHALATION QPM 12/24/17 02/27/18 History torsemide [Demadex] 20 mg PO DAILY 12/24/17 02/27/18 History trandolapril 1 mg PO DAILY 12/24/17 02/27/18 History clopidogrel [Plavix] 75 mg PO DAILY 01/28/18 02/27/18 History tamsulosin [Flomax] 0.4 mg PO DAILY 01/28/18 02/27/18 History nitroglycerin [Nitrostat] See Label Instructions .ROUTE 02/13/18 02/27/18 History .COMPLEX Exam Vital signs: Vital Signs 02/27/18 06:36 Temperature 97.9 F Pulse Rate 58 L Respiratory Rate 16 Blood Pressure 149/72 H Pulse Oximetry 95 Intake & Output 02/26/18 02/27/18 02/27/18 18:59 06:59 18:59 Weight 78.6 kg Other: Weight On Admission 78.6 kg - Constitutional no acute distress - Routine HEENT Exam Head: Present: normocephalic Eye: Present: EOMI, PERRL ENT: Present: mucous membranes moist - Routine Neck Exam Absent: JVD - Routine Cardiovascular Exam Present: RRR, murmur - Routine Abdominal Exam Present: soft, normoactive bowel sounds - Routine Extremities Exam Absent: edema - Routine Neurological Exam Present: oriented X3, CN II-XII intact. Absent: sensory deficit, motor deficit Results 02/25/18 14:19 02/25/18 14:19 Coagulation 02/25/18 Range/Units 14:19 PT 10.9 (9.8-11.6) sec CBC 02/25/18 Range/Units 14:19 WBC 6.1 (4.0-11.0) th/mm3 RBC 3.79 L (4.50-5.90) mil/mm3 Hgb 12.7 L (13.0-17.0) gm/dL Hct 36.9 L (39.0-51.0) % Plt Count 185 (150-450) th/mm3 Neut # (Auto) 4.2 (1.8-7.7) th/mm3 Lymph # (Auto) 1.0 (1.0-4.8) th/mm3 [place] # (Auto) 0.7 (0.0-0.9) th/mm3 Eos # (Auto) 0.1 (0.0-0.4) th/mm3 Baso # (Auto) 0.0 (0.0-0.2) th/mm3 Comprehensive Metabolic Panel 02/25/18 Range/Units 14:19 Sodium 140 (136-145) meq/L Potassium 3.8 (3.5-5.1) meq/L Chloride 102 (98-107) meq/L Carbon Dioxide 30.1 (21.0-32.0) meq/L BUN 18 (7-18) mg/dL Creatinine 1.34 H (0.60-1.30) mg/dL Calcium 9.1 (8.5-10.1) mg/dL Intake and Output 02/26/18 02/27/18 02/27/18 22:59 06:59 14:59 Other: Weight 78.6 kg Weight On Admission 78.6 kg EKG interpretations - Dysrhythmias Sinus rhythms and dysrhythmias: sinus rhythm - Blocks, axis, hypertrophy, ST abn AV and intraventricular conduction: 1 AV block Caprini VTE Risk Assessment Caprini VTE Risk Assessment: Moderate/High Risk (score >= 2) Caprini Risk Assessment Model: Point Value = 1 Point Value = 2 Point Value = 3 Point Value = 5 Age 41-60 Minor surgery BMI > 25 kg/m2 Swollen legs Varicose veins or History of unexplained or recurrent spontaneous Oral contraceptives or hormone replacement Sepsis (< 1 month) Serious lung disease, including pneumonia (< 1 month) Abnormal pulmonary function Acute myocardial infarction Congestive heart failure (< 1 month) History of inflammatory bowel disease Medical patient at bed rest Age 61-74 Arthroscopic surgery Major open surgery (> 45 min) Laparoscopic surgery (> 45 min) Malignancy Confined to bed (> 72 hours) Immobilizing plaster cast Central venous access Age >= 75 History of VTE Family history of VTE Factor V Leiden Prothrombin [id number] Lupus anticoagulant Anticardiolipin antibodies Elevated serum homocysteine Heparin-induced thrombocytopenia Other congenital or acquired thrombophilia Stroke (< 1 month) Elective arthroplasty Hip, pelvis, or leg fracture Acute spinal cord injury (< 1 month) Prophylaxis Regimen: Total Risk Factor Score Risk Level Prophylaxis Regimen 0-1 Low Early ambulation 2 Moderate Order ONE of the following: *Sequential Compression Device (SCD) *Heparin 5000 units SQ BID 3-4 Higher Order ONE of the following medications: *Heparin 5000 units SQ TID *Enoxaparin/Lovenox 40 mg SQ daily (WT < 150 kg, CrCl > 30 mL/min) *Enoxaparin/Lovenox 30 mg SQ daily (WT < 150 kg, CrCl > 10-29 mL/min) *Enoxaparin/Lovenox 30 mg SQ BID (WT < 150 kg, CrCl > 30 mL/min) AND/OR *Sequential Compression Device (SCD) 5 or more Highest Order ONE of the following medications: *Heparin 5000 units SQ TID (Preferred with Epidurals) *Enoxaparin/Lovenox 40 mg SQ daily (WT < 150 kg, CrCl > 30 mL/min) *Enoxaparin/Lovenox 30 mg SQ daily (WT < 150 kg, CrCl > 10-29 mL/min) *Enoxaparin/Lovenox 30 mg SQ BID (WT < 150 kg, CrCl > 30 mL/min) AND *Sequential Compression Device (SCD) Assessment and Plan - Assessment (1) Aortic stenosis Code(s): I35.0 - Nonrheumatic aortic (valve) stenosis Status: Acute (2) Diastolic heart failure, NYHA class 3 Code(s): I50.30 - Unspecified diastolic (congestive) heart failure Status: Acute - Plan Severe aortic valve stenosis Preoperative workup: STS score 20% [place] [employer] functional class III symptoms Body mass index 26.7 2/4 frailty score Electrocardiogram December 24, 2017 shows sinus rhythm with first-degree atrioventricular block Pulmonary function test from December 24, 2017 shows an FEV1 of 1.00 consistent with severe obstructive lung disease Transthoracic echocardiogram performed on December 24, 2017 shows a peak jet velocity of 4.0 m/s, mean gradient 40 mmHg, calculated aortic valve area 0.7 cm , calculated ejection fraction 55-60%, severity of aortic insufficiency mild. Cardiac catheterization from February 13, 2018 shows severe [place] three-vessel coronary artery disease with 2/2coronary bypass grafts patent and percutaneous coronary intervention to the saphenous vein graft to the mid left anterior descending coronary artery. Computed tomography analysis performed on December 31, 2017 shows a short annulus diameter 20.7 mm, long anus diameter 28.6 mm, perimeter 77.5 mm, sinus of Valsalva diameter 32.1 mm, sinotubular junction diameter 28.7 mm, left coronary height 15.2 mm, right coronary height 17.2 mm, minimal luminal diameter on the right iliac system 2.9 mm and left iliac system 4.1 mm, minimal luminal diameter through the left subclavian is 7.6 mm This is a 87-year-old gentleman with severe symptomatic aortic valve stenosis and preserved left ventricular systolic function with multiple comorbidities including severe peripheral vascular disease. Plan will be for a left subclavian alternate access approach for transcatheter aortic valve replacement. We will plan to deploy a 29 evolute pro Medtronic bioprosthetic transcatheter aortic valve. Risks, benefits, and alternatives have been discussed with the patient.
[2018-02-27] MEDS: ceFAZolin 2 GM Premix Inj 2 GM/50 ML PIGGYBACK IV.SIG SCH ×2 (07:55→08:33)
[2018-02-27] MEDS ORDERED: Bupivacaine PF 0.5% Inj 10 ML Vial ONE (08:50)
[2018-02-27] MEDS ORDERED: Iohexol Inj 350 MG/ML 100 ML Bottle (for RAD Diag) IVCONTRAST ONE (10:05)
[2018-02-27] MEDS ORDERED: hydrALAZINE HCl Inj 20 MG/ML Vial IV.PUSH PRN (10:21)
[2018-02-27] MEDS ORDERED: Atropine Inj 1 MG/ML Vial IV.PUSH PRN (10:21)
[2018-02-27] MEDS ORDERED: Acetaminophen 325 MG Tablet PO PRN (10:21)
--- NOTE | 2018-02-27 10:27 | P.OP ---
- Preoperative Diagnosis (1) PAD (peripheral artery disease) (2) Aortic stenosis (3) CAD (coronary artery disease) (4) Diastolic heart failure, NYHA class 3 Postoperative Diagnosis: same Date of procedure: 02/27/18 Procedure: Attempted left subclavian access for transcatheter aortic valve replacement, left transfemoral TAVR with a 29 Evolut R tissue valve Left subclavian artery cutdown Percutaneous left and right femoral arterial access. Aortography Fluoroscopy Postdilation balloon aortic valvuloplasty with a 22 True Balloon Implants: 29 Evolut R tissue valve Anesthesia: GETA Surgeon: Magali Buchanan MD Co-surgeon - Dr. [facility] Aide/Scheduler: Stephanie Arellano Pathology: none sent Operation and Findings: The risks, benefits, complications, treatment options, and expected outcomes were discussed with the patient. The possibilities of reaction to medication, pulmonary aspiration, perforation of viscus, bleeding, recurrent infection, the need for additional procedures, failure to diagnose a condition, and creating a complication requiring transfusion or operation were discussed with the patient. The patient concurred with the proposed plan, giving informed consent. The site of surgery properly noted/marked. The patient was taken to hybrid operating room, identified as Zachery Beltre and the procedure verified as Transcatheter Aortic Valve Replacement with left subclavian access.. A Time Out was held and the above information confirmed. Standard monitoring lines and Rivera catheter were placed. General anesthesia was induced. The patient was prepped and draped in a sterile fashion. An incision was made in the left infraclavicular space and electrocautery was used to divide the subcutaneous tissue and pectoralis muscle. The artery was identified and isolated. Unfortunately, the left subclavian artery was too calcified to safely use as access for the TAVR delivery system. This wound was irrigated and closed following the procedure in 3 layers. Right femoral arterial was acquired using a micropuncture percutaneous technique and DSA angiography was performed to confirm placement. The details of this procedure were dictated under separate note by cardiology. A RIM catheter was positioned to image the left iliofemoral system. The left external iliac artery was dilated with a 7 x 10 balloon to allow 14 F access. Once a pigtail was positioned in the aortic annulus and a temporary transvenous pacemaker wire was placed in the right ventricular apex and tested, the patient was heparinized. Arch aortography was performed to define the implant view. Serial dilators were used to dilate the right femoral artery to 14 [place] caliber. The Medtronic delivery device and valve sheath was then inserted up to the distal abdominal aorta. A 29 Evolut R transcatheter aortic valve was then positioned in the annulus and deployed with the patient being paced at 100 beats per minute. TIFFANIE was performed and the patient had an unacceptable PVL. A balloon aortic valvuloplasty was then performed using a 24 x 6 True balloon with the patient being paced at 180 beats per minute. Following deployment, the valve apparatus was withdrawn and arch aortography and TIFFANIE were performed to assess the valve again. The valve had no significant perivalvular leaks. Gradients were then measured and the sheath was removed. Protamine was administered. Sterile dressings were placed. At the end of the operation, all sponge, instruments, and needle counts were correct. The patient was transferred to the CVICU in stable condition. Findings: Complex access through left femoral artery for valve deployment. Left subclavian access attempted but aborted due to complex calcification. Implants: 29 Evolut R tissue valve Complications: none
[2018-02-27] MEDS ORDERED: Sod Chloride 0.9% Inj 1,000 ML IV.CONT SCH (10:30)
--- NOTE | 2018-02-27 10:39 | P.PCN ---
Date of procedure: 02/27/18 Pre-op diagnosis: Severe aortic valve stenosis Procedure: transcribing operator head: James Monroe MD Primary Surgeon: Magali Buchanan MD Surgical 2nd Assist: Stephanie Arellano MD Procedures performed: 1. Fluoroscopy with interpretation 2. Left heart catheterization 3. Ascending aortography 4. Temporary transvenous pacemaker placement 5. Transesophageal echocardiogram 6. Aortic balloon valvuloplasty 7. Transcatheter aortic valve replacement with Medtronic 29 mm evolute R bioprosthetic valve next 8. Peripheral angiography left lower extremity, first order visualization. 9. Left common and external iliac artery peripheral intervention with balloon angioplasty Methods: Risks, benefits, and alternatives were discussed with the patient. Patient understood and consented to the procedure. Patient was brought into the operating room and placed on the operating table. Bilateral groins and chest were prepped and draped. The left subclavian region was prepped. A cutdown was performed to visualize the left subclavian artery. Due to heavy calcification through the entire subclavian artery, access was aborted for this approach. The right common femoral artery was cannulated with a micropuncture sheath and a 5 Bel[place]ian 11 cm sheath was then advanced without difficulty. A wire was carefully navigated to the descending aorta. A 5 Belarusian rim catheter was then advanced to selectively engage the left common iliac artery. Selective digital subtraction angiography of the left iliac system was visualized. The left iliac system was severely diseased. 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 Access was then obtained with a micropuncture sheath in the left common femoral artery under direct visualization. A short 0.035 inch stiff angled Glidewire was then carefully navigated to the level of the descending aorta. Balloon angioplasty was performed in the left common and external iliac arteries, see details below. A [place]ian sheath was then advanced into the left common femoral artery. A 10 Bel[place]ian dilator was then advanced to the level of the descending aorta over a 0.035 inch 260 cm stiff wire. A 14 [place]ian dilator was then advanced to the descending aorta followed then by a 14 [place]ian sheath. We carefully navigated this sheath slowly through the iliac system given the severity stenosis. 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 The left internal/external iliac arteries also have moderate to heavy calcium present. There is 90% stenosis at the bifurcation of the external iliac artery. Left common femoral artery is heavily calcified with moderate diffuse disease. Peripheral intervention: A 7 mm x 40 mm peripheral balloon was then navigated to the level of the distal left common iliac artery and deployed to 8 kevin the same balloon was then pulled back to the proximal left external iliac artery deployed to 8 kevin. Repeat angiography showed still residual stenosis but no perforation. Temporary transvenous pacemaker placement: A 5 [place]ian balloontipped temporary transvenous pacemaker was advanced under fluoroscopic guidance to the right internal jugular sheath to the right ventricular apex. Appropriate pacing and capture was confirmed and utilized during the procedure for rapid ventricular pacing. Transesophageal echocardiogram: Please see detailed separate report Ascending aortography: Ascending aortography was performed using an 5 Bel[place]ian angled pigtail catheter advanced to the right common femoral arterial sheath to the level of the descending aorta and its the right coronary cusp. Ascending aortography was performed which showed 3 leaflets and parallax view. The descending aorta was not significantly dilated. Left heart catheterization: A 5 Belarusian AL-1 catheter was advanced through the left common femoral sheath to the level of the descending aorta a 0.035 inch Amplatz straight tip Super Stiff wire was then advanced across the aortic valve with some difficulty. The AL-1 catheter was advanced into the left ventricle. A 260 cm 0.035 inch standard J- wire was then advanced to the left ventricular apex and the AL-1 catheter removed. A 5 [place]ian angled pigtail catheter was then advanced over the J-wire into the left ventricular apex and the J-wire removed. A 0.035 inch 260 cm Medtronic Confida wire was then advanced to the left ventricular apex through the pigtail catheter, and the pigtail catheter removed. Transcatheter aortic valve replacement: A Medtronic 29 mm evolute R valve was advanced through the left common femoral sheath to the level of the descending aorta. The device was then advanced up and over the arch to the level of the ascending aorta and across the aortic valve. Appropriate positioning was confirmed. The device was carefully and slowly deployed under direct visualization. The device was then fully released. Repeat transesophageal echocardiogram performed showed good positioning but there was moderate paravalvular leak.. Aortic balloon valvuloplasty: A 24 mm x 40 mm valvuloplasty balloon was prepped. The balloon was then advanced over the Medtronic Confida wire to the level of the ascending aorta and across the aortic valve. Under rapid ventricular pacing at 180 bpm the aortic valvuloplasty balloon was deployed. Repeat transesophageal echocardiogram showed trace paravalvular leak with no stenosis. Post valve deployment intraoperative transesophageal echocardiogram findings: 1. Post aortic valve area 4.0 cm 2. Post implant mean aortic valve gradient 4 mmHg 3. Post implant peak velocity 1.54 m/seconds 4. Aortic valve insufficiency - Trivial regurgitation perivalvular leak Conclusions: 1. Severe [place] aortic valve stenosis 2. Successful transcatheter aortic valve replacement with a bioprosthetic 29 mm Medtronic Evolut R valve 3. Successful aortic balloon valvuloplasty Plan: We will monitor the patient closely for any immediate postprocedural complications. We will consult electrophysiology for evaluation of postprocedure heart rhythm. We will obtain a limited transthoracic echocardiogram. We will initiate antiplatelet therapy with aspirin and Plavix. Patient be transferred to the cardiovascular intensive care unit for further monitoring
--- NOTE | 2018-02-27 11:00 | ECG ---
Date Performed: 02/27/2018 Time Performed: 05:52:56 PTAGE: 87 years EKG: Sinus rhythm with borderline 1st degree A-V block. Lateral T wave changes are nonspecific Borderline ECG PREVIOUS TRACING : 02/13/2018 06.43 DOCTOR: James Monroe Interpretating Date/Time 02/27/2018 10:58:05
[2018-02-27] MEDS ORDERED: fentaNYL Citrate Inj 100 MCG/2 ML Ampul ONE ×2 (11:21→19:04)
--- NOTE | 2018-02-27 11:40 | ECHRPT ---
Indication: CONCLUSIONS Normal left ventricular size and wall thickness. The left ventricular systolic function is normal wi th an estimated ejection fraction in the range of 60-65%. Left ventricular diastolic function parameters a re normal. The left atrial size is moderately dilated. Mild thickening of the mitral valve leaflets. Mild mitral valve regurgitation. Trileaflet aortic valve. Aortic valve sclerosis is present. Diffuse calcification of the aortic valve. Trace aortic valve regurgitation. Severe aortic valve stenosis. Status post transcatheter aortic valve replacement. No perivalvular leak. BP: / HR: Rhythm: Technical Quality: Medications Complications Proc. Components FINDINGS LEFT VENTRICLE Normal left ventricular size and wall thickness. The left ventricular systolic function is normal wi th an estimated ejection fraction in the range of 60-65%. Left ventricular diastolic function parameters a re normal. RIGHT VENTRICLE Normal right ventricular size and systolic function. LEFT ATRIUM The left atrial size is moderately dilated. RIGHT ATRIUM The right atrial size is normal. ATRIAL SEPTUM Normal atrial septal thickness without atrial level shunting by limited color doppler interrogation. AORTA The aortic root and proximal ascending aorta are normal in size on limited imaging. MITRAL VALVE Mild thickening of the mitral valve leaflets. Mild mitral valve regurgitation. AORTIC VALVE Trileaflet aortic valve. Aortic valve sclerosis is present. Diffuse calcification of the aortic valve. Trace aortic valve regurgitation. Severe aortic valve stenosis. Status post transcatheter aortic valve replacement. No perivalvular leak TRICUSPID VALVE Structurally normal tricuspid valve. There is trace tricuspid valve regurgitation. VESSELS The inferior vena cava is normal in size. PULMONARY VALVE The pulmonary valve is not well visualized. PERICADIUM No pericardial effusion. James Monroe MD, FACC (Electronically Signed) Final Date:27 February 2018 11:40
[2018-02-27] MEDS: Morphine Sulfate Inj 2 MG/ML Vial IV.PUSH PRN (13:12)
[2018-02-27] MEDS ORDERED: Iohexol 350 MG/ML 100 ML Vial (for Cath Lab) IVCONTRAST ONE (15:04)
[2018-02-27] MEDS ORDERED: Iohexol 350 MG/ML 50 ML Vial (for Cath Lab) IVCONTRAST ONE (15:04)
--- NOTE | 2018-02-27 17:03 | P.PCN ---
Date of procedure: 02/27/18 Procedure: Procedure: Transesophageal Echocardiography Diagnosis: Severe Aortic Stenosis Indications: April-operative planning for transcatheter aortic valve replacement Consent: obtained Anesthesia: GETA Description of the Procedure: The patient was sedated and mechanically ventilated. The echo probe was inserted easily and without resistance. At the conclusion of the procedure, the echo probe was removed. Please see detailed echocardiogram report for formal findings. Preliminary Findings (not confirmed): Pre-procedure: 1) preserved LV function 2) severe aortic stenosis 3) mild aortic regurgitation 4) no pericardial effusion 5) no evidence of intra-atrial shunting by color flow Doppler Post-procedure: 1) s/p successful transcatheter aortic valve replacement 2) no evidence of bioprosthetic valve stenosis 3) no perivalvular leak 4) no pericardial effusion The patient tolerated the procedure well with no hemodynamic instability. There were no immediate complications noted. There was minimal EBL. I personally performed the procedure.
--- NOTE | 2018-02-27 17:04 | P.CONCC ---
History of Present Illness Service: Critical Care Medicine Consult date: 02/27/18 Requesting Physician: James Monroe Reason for Consult: perioperative management of medical comorbidities Primary Care Provider: Uziel Franklin MD Chief Complaint: Aortic valve stenosis History of Present Illness: This is an 87yM with history of severe aortic stenosis and peripheral arterial disease who presents for elective TAVR. Initial attempt was made at left subclavian access including cut-down and exposure, however intra-operatively it was felt too high risk due to significant plaque disease in the left subclavian. After LE angiography, left common iliac was balloon angioplastied and a covered stent was placed. through this a 14 Fr sheath was placed and the remainder of the TAVR was uncomplicated via groin access. The patient arrives to the CVICU extubated and in stable condition, arousing from anesthesia. due to his somnolence, a complete ROS Is unobtainable. Limited ROS negative for RAYMUNDO, nausea, vomiting, sore throat, chest pain, shortness of breath. Review of Systems unobtainable due to mental status (limited by arousing from anesthesia) PMFSH - History History Provided By: Patient, Medical Record - Medical History Medical History: Medical History (Last Reviewed 02/27/18 @ 21:26 by José Tirado MD) Aortic stenosis Apnea BPH (benign prostatic hyperplasia) COPD (chronic obstructive pulmonary disease) CPAP (continuous positive airway pressure) dependence Carotid artery disease Coronary artery disease DJD (degenerative joint disease) First degree atrioventricular block HTN (hypertension) Hx of myocardial infarction Hyperlipidemia PAD (peripheral artery disease) Paroxysmal atrial fibrillation Rotator cuff dysfunction Sleep apnea TIA (transient ischemic attack) - Surgical History Surgical History: Surgical History (Last Reviewed 02/27/18 @ 21:26 by José Tirado MD) H/O heart artery stent Hip joint replacement status S/P CABG x 2 - Family History Family History: Family History (Last Reviewed 02/27/18 @ 21:26 by José Tirado MD) Brother Asthma Myocardial infarct Hypertension Father Asthma Myocardial infarct Hypertension Sister S/P TAVR (transcatheter aortic valve replacement) Hypertension - Social History I have reviewed the patient's Social History: Yes - Tobacco History Smoking Status: Unknown if ever smoked - Alcohol History How Often Do You Have a Drink Containing Alcohol: Monthly or less - Substance Use History Substance History: No History of Abuse Medications and Allergies Active Medications: Active Medications Acetaminophen (Tylenol) 650 mg PO Q4H PRN PRN Reason: PAIN SCALE 1 TO 2 Stop: 02/28/18 10:20 Aspirin (Aspirin Chew) 81 mg PO DAILY DOMINIC Atropine Sulfate (Atropine Inj) 0.5 mg IV.PUSH UNSCH PRN PRN Reason: VAGAL REPONSE Stop: 02/28/18 10:20 Clonidine HCl (Catapres) 0.2 mg PO Q6H PRN PRN Reason: SBP > 160 mmHg Clopidogrel Bisulfate (Plavix) 75 mg PO DAILY DOMINIC Ferrous Sulfate (Ferosul) 325 mg PO DAILY DOMINIC Hydralazine HCl (Apresoline Inj) 10 mg IV.PUSH Q30M PRN PRN Reason: SBP > 160 mmHg Lactated Ringer's (Lr 1000 Ml Inj) 1,000 mls @ 30 mls/hr IV.SIG .Q24H DOMINIC Stop: 02/28/18 05:59 Sodium Chloride (Ns Inj) 500 mls @ 30 mls/hr IV.SIG .Q10H DOMINIC Morphine Sulfate (Morphine Inj) 2 mg IV.PUSH Q30M PRN PRN Reason: BREAKTHROUGH PAIN Last Admin: 02/27/18 13:12 Dose: 2 mg Ondansetron HCl (Zofran Inj) 4 mg IV.PUSH ONCE PRN PRN Reason: NAUSEA OR VOMITING Stop: 02/28/18 10:20 Oxycodone/Acetaminophen (Percocet 5/325 Mg) 1 tab PO Q6H PRN PRN Reason: PAIN SCALE 3 TO 5 Allergies Allergy/AdvReac Type Severity Reaction Status Date / Time No Known Allergies Allergy Verified 02/03/18 10:33 Home Medications Medication Instructions Recorded Confirmed Type allopurinol 100 mg PO BID 12/24/17 02/27/18 History alprazolam [Xanax] 1 mg PO BID PRN 12/24/17 02/27/18 History arformoterol [Brovana] 15 mcg INHALATION Q12H 12/24/17 02/27/18 History atorvastatin 80 mg PO DAILY 12/24/17 02/27/18 History cyanocobalamin-cobamamide [B-12 1 cc 12/24/17 History Plus] levetiracetam [Keppra] 500 mg PO Q12H 12/24/17 02/27/18 History levothyroxine 25 mcg PO DAILY 12/24/17 02/27/18 History mometasone [Asmanex Twisthaler] 2 inh INHALATION QPM 12/24/17 02/27/18 History torsemide [Demadex] 20 mg PO DAILY 12/24/17 02/27/18 History trandolapril 1 mg PO DAILY 12/24/17 02/27/18 History clopidogrel [Plavix] 75 mg PO DAILY 01/28/18 02/27/18 History tamsulosin [Flomax] 0.4 mg PO DAILY 01/28/18 02/27/18 History nitroglycerin [Nitrostat] See Label Instructions .ROUTE 02/13/18 02/27/18 History .COMPLEX Physical Exam Vital signs: Vital Signs 02/27/18 06:36 02/27/18 11:10 02/27/18 11:30 Temperature 36.6 C 34.1 C L Pulse Rate 58 L 84 50 L Respiratory Rate 16 16 Blood Pressure 149/72 H 136/69 Pulse Oximetry 95 99 02/27/18 12:00 02/27/18 13:00 02/27/18 14:00 Temperature 34.0 C L 34.4 C L 34.4 C L Pulse Rate 50 L 59 L 61 Respiratory Rate 16 16 14 Blood Pressure 112/58 L 138/66 118/60 Pulse Oximetry 99 99 99 02/27/18 15:00 02/27/18 16:00 Temperature 35.7 C L 35.8 C L Pulse Rate 57 L 70 Respiratory Rate 14 16 Blood Pressure 125/58 L 126/60 Pulse Oximetry 99 99 Intake & Output 02/26/18 02/27/18 02/27/18 18:59 06:59 18:59 Intake Total 1050 / 1050 Output Total 450 / 450 Balance 600 / 600 Weight 78.6 kg Intake: IV 50 / 50 Ancef 2 GM Premix Inj 2 gm In 50 / 50 50 ml @ 150 mls/hr IV.SIG [employer] [facility] Rx#:[id number] Anesthesia Amount 1000 / 1000 Output: Estimated Blood Loss 100 / 100 Urine Amount (Catheter) 350 / 350 Indwelling Temp Sensing 350 / 350 Catheter Other: Weight On Admission 78.6 kg Narrative: GENERAL: Frail elderly male lying in bed, arousing from anesthesia HEENT: Normocephalic. Atraumatic. Pupils equal, round, reactive, conjugate. Mucous membranes are moist NECK: Trachea is midline. There is no JVD. right IJ introducer sheath with transvenous pacer in place, site is clean and dry, dressing intact. CHEST: unlabored. equal chest rise. nc o2. Small left chest incision clean dry and intact. CARDIOVASCULAR: normal rate, regular rhythm. Transvenous pacer is set VVI at a backup rate of 50. not currently paced. ABDOMEN: Soft, nontender, nondistended. No guarding. MUSCULOSKELETAL: Pulses 2+. No peripheral edema. bilateral groin sites are clean and dry, no evidence of hematoma, dressing intact. distal LE pulses are Dopplerable. NEUROLOGICAL: RASS -2. Arousing from anesthesia. follows commands. moves all extremities. no focal deficits. - Urinary Catheter Management Indwelling Temp Sensing Catheter Cath placed during this visit: yes Reason for continuing: Hourly intake/output Insertion date: 02/27/18 Insertion time: 07:40 Assessment and Plan - Assessment and Plan Plan: Assessment: 87yM POD 0 s/p TAVR via failed left subclavian access and ultimately left groin access after balloon dilation and covered stent placement. keep in icu. watch LE vascular checks closely. S/p TAVR today via groin access - anticoagulation per [employer] police officer - mivf - close uop monitoring - frequent neurovascular checks - frequent groin checks - OOB after flat time Peripheral arterial disease s/p left femoral covered stent 02/27 - frequent neurovascular checks - anticoagulation per Dr. Monroe Hypertension - goal sbp < 180 - add back antihypertensives as needed - currently on clevidipine for immediate post-operative control of hypertension Congestive Heart Failure secondary to valvulopathy - mivf today - may need diuresis beginning after POD 1 Hyperlipidemia - restart home statin CAD - restart home ASA - statin COPD Sleep Apnea - nebs prn - wean o2 for goal spo2 > 90% - pulmonary toilet - OOB after flat time First degree AVB new left bundle branch block - EP study - keep transvenous pacer - keep on telemetry Carotid Artery Disease TIAs - frequent neuro checks BPH - restart home meds - d/c cox in AM Seizure disorder NOS - restart home keppra Anxiety - restart 1/2-dose of home xanax (0.5mg po BID prn) Hypothyroidism - restart home synthroid Gout - restart home allopurinol advance diet after flat time SCDs AM CBC, BMP Critical care medicine will continue to follow while patient remains in the CVICU.
[2018-02-27] MEDS ORDERED: Lidocaine PF 1% Inj 30 ML Vial ONE (17:55)
[2018-02-27] MEDS ORDERED: Isoproterenol HCl Inj 0.2 MG/ML Ampul ONE (18:02)
[2018-02-27] MEDS ORDERED: Lidocaine 2% Inj 50 ML Vial ONE (18:10)
[2018-02-27] MEDS ORDERED: ceFAZolin 1 GM Premix Inj 2 GM/100 ML PIGGYBACK IV.SIG ONE (18:10)
[2018-02-27] MEDS ORDERED: Sodium Chlor 0.9% Inj 250 ML ONE (18:11)
--- NOTE | 2018-02-27 18:14 | CATHPROC ---
Patient Name: Zachery Beltre Study #: [id number] Initial MD: Warren Bland Date of : 1930 Study Date: 02/27/2018 Cardiac Catheterization Report 02/27/2018 6:33:57 PM Financial #: [id number] 1 of 7 Patient Name: Zachery Beltre Study #: [id number] Initial MD: Warren Bland Date of : 1930 Study Date: 02/27/2018 Entire Case Report Patient Information Patient Name Zachery Beltre Date of 1930 Age 87 years Financial # [id number] Gender M AlternateID Lab Number 2 Room Number 444 Height (in) 65.0 Height (cm) 165.1 BSA 1.86 Weight (lbs) 173.5 Weight (kg) 78.9 Patient Address/Phone Number Home Address [facility] Home Phone Number [phone] [facility] [phone] Study Information Study Number Admission Scheduled Start Study Start [id number] Feb 27 2018 5:25AM 02/27/2018 Feb 27 2018 5:18PM [place] Service Cath Endovascular Study Admit Source Facility Department Other [facility] - [facility] Physician and Clinical Staff Initial Warren [place] Emr Specialist Marisol Nayak,RT(R) TECH2 Emr Specialist Kiley Brooks RN Other Anesthesia, LEGAL CASHIER Recorder Dannielle Mcclellan RN Scrub Zafar Escalante RT(R) 02/27/2018 6:33:57 PM Financial #: [id number] 2 of 7 Patient Name: Zachery Beltre Study #: [id number] Initial MD: Warren Bland Date of : 1930 Study Date: 02/27/2018 Equipment Time Cheesemaking Laborer Description Size Mfg Part Number Used/Scraped [id number] 17:52 [employer] BLANKET,WARM AIR CCL * Used *[id number] 17:52 [employer] PACK, CCL CUSTOM * Used *[id number] 17:52 MEDLINE PACER ROBERT, LIMB * 2530 *[id number] Used [id number] 17:50 [employer] MED[employer] CATHETER, JSN, QUAD FR 5 Used *[id number] 859488 17:50 [employer] MEDICAL CATHETER, JSN, QUAD FR 5 Used *[id number] 17:50 [employer] MEDICAL CATHETER, JSN, QUAD FR 5 Used *[id number] 496357 17:50 [employer] MEDICAL CATHETER, JSN, QUAD FR 5 Used *[id number] 950806 17:51 [employer] MEDICAL SHEATH, EPS, FR5 FAST CATH FR 5 Used *[id number] 006239 17:51 [employer] MEDICAL SHEATH, EPS, FR5 FAST CATH FR 5 Used *[id number] 720698 18:03 [employer] MEDICAL SHEATH, EPS, FR5 FAST CATH FR 5 Used *[id number] 389158 18:03 [employer] MEDICAL SHEATH, EPS, FR6 FAST CATH FR 6 Used *[id number] Insurance Information Insurance Payor Medicare Third Alliance Party Third Alliance Party Number MEDICARE A B MCRAB History: Allergies Allergy Reaction No Known Allergies History: Risk Factors Family History of Hypertension Dyslipidemia Previous [facility] Previous Heart Failure Premature CAD Yes Yes Yes Yes Yes Prior Valve Prior PCI Prior CABG Surgery Yes Yes Yes Cerebrovascular Peripheral Artery Chronic Lung On Dialysis Diabetes Disease Disease Disease No Yes Yes Yes No Labs 02/27/2018 6:33:57 PM Financial #: [id number] 3 of 7 Patient Name: Zachery Beltre Study #: [id number] Initial MD: Warren Bland Date of : 1930 Study Date: 02/28/20 18 Hgb (g/dl) Hct (%) WBC (l/cumm) Platelets (thousands) 11.60-17.00 35.00-51.00 4.00-11.00 150.00-450.00 12.7 36.9 6.1 185 Glucose (mg/dl) BUN (mg/dl) Creatinine (mg/dl) BUN:Creatinine (1:x) 74.00-106.00 7.00-18.00 0.50-1.30 10.00-20.00 99 18 1.3 13.8 Na (meq/l) K (meq/l) 136.00-145.00 3.50-5.10 140 3.8 INR (PTT:PT) 0.90-1.10 1.1 Medication Medication Total Dose (Bolus/Oral) Medication Total Dosage/Unit 1% XYLOCAINE 20 mL Medications (Bolus/Oral) Medication Time Given Dosage/Unit Administered By Reason 1% XYLOCAINE 02/27/2018 6:02:03 PM 20 mL Warren Bland 20 mL 1% XYLOCAINE given in lab by Warren Bland in Right Groin via Subcutaneous. Ordered by Mane Bland. Medication (Drip) Medication Time Given Dosage/Unit Concentration/Unit Diluent (ml) Solutio n IV Solutions 02/27/2018 5:53:08 PM 0 mL (IV) NaCl .9 IV Solutions given in lab by Kiley Brooks RN via Peripheral IV. Pump/Drip Flow = 30 ml/hr using Na Cl .9. Ordered by Warren Bland. Reason: As per physicians verbal order. IV Solutions 02/27/2018 5:54:37 PM 0 mL (IV) NaCl .9 IV Solutions given in lab by Kiley Brooks RN in Right Wrist via Peripheral IV. Pump/Drip Flow = 30 ml/hr using NaCl .9. Ordered by Warren Bland. Reason: As per physicians verbal order. IV Solutions 02/27/2018 5:54:41 PM 0 mL (IV) NaCl .9 IV Solutions given in lab by Kiley Brooks RN in Left Antecubital via Peripheral IV. Pump/Drip Flow = 30 ml/hr using NaCl .9. Ordered by Warren Bland. Reason: As per physicians verbal order. 02/27/2018 6:33:57 PM Financial #: [id number] 4 of 7 Patient Name: Zachery Beltre Study #: [id number] Initial MD: Warren Bland Date of : 1930 Study Date: 02/27/2018 Initial Case Assessment Cardiovascular HR NIBP 72 175/58 Edema Present Skin color Skin None Normal Warm Dry Circulatory - Right Pulses Dorsalis Pedis 1 Scale (0,1,2,3,4,d) Circulatory - Left Pulses Dorsalis Pedis 1 Scale (0,1,2,3,4,d) Circulatory - Lower Extremities Color Lower Right Color Lower Left Normal Normal Neurological State Oriented to time-place- Alert Moves all extremities person Respiration - General Respiration Rate SpO2 (%) O2 (lpm) (B/min) 14 100 3 Chronological Log Time Study Chronological Log 17:36:30 Patient arrived via Bed. 17:36:31 Patient Name, D.O.B, / Armband Verified By R.N. 17:36:35 Pre-op and post- op instructions given; patient acknowledges understanding of instructions. 17:36:36 Anesthesia at bedside. Assumes care of patient. 17:36:40 Consent signed by the physician and the patient and verified by the [facility] staff. 17:36:43 Patient has been NPO for More than 6Hrs. Skin Breakdown- bruises scattered over arms. Procedural dsgs to bilateral groins and RIJ at TV pm site. Hematoma 17:36:46 noted to left upper chest and extensive bruising to left groin. 17:36:48 Patient Warmer Placed on the Table. 17:36:50 TV pacer in RIJ settings HR 50 sens 3 MA 10 02/27/2018 6:33:57 PM Financial #: [id number] 5 of 7 Patient Name: Zachery Beltre Study #: [id number] Initial MD: Warren Bland Date of : 1930 Study Date: 02/27/2018 17:36:50 Disposable Defibrillator Pads Placed On Patient. 17:36:51 Kayley Prominences Protected 17:36:54 History and physical on the chart or being dictated. 17:52:07 A # 18 IV was noted in the Wrist (right). Grade = 0 17:52:16 A # 20 IV was noted in the Antecubital (left). Grade = 0 17:52:27 A # 5FR TV pacer was noted in the Jugular Vein (right). Grade = 0. NS @ KVO to introducer p ort. IV Solutions given in lab by Kiley Brooks RN via Peripheral IV. Pump/Drip Flow = 30 ml/hr us ing NaCl .9. Ordered 17:53:08 by Warren Bland. Reason: As per physicians verbal order. IV Solutions given in lab by Kiley Brooks RN in Right Wrist via Peripheral IV. Pump/Drip Luis w = 30 ml/hr using NaCl 17:54:37 .9. Ordered by Warren Bland. Reason: As per physicians verbal order. IV Solutions given in lab by Kiley Brooks RN in Left Antecubital via Peripheral IV. Pump/Dri p Flow = 30 ml/hr using 17:54:41 NaCl .9. Ordered by Warren Bland. Reason: As per physicians verbal order. Assessment: Initial Case, HR=72 BPM, EKNO=870/58 mmhg, Edema=None, Color=Normal, Skin = Warm, D ry Right Pulses: Tonio Ped=1 Left Pulses: Tonio Ped=1 17:55:16 Lower Right Extremities: Color=Normal Lower Left Extremities: Color=Normal Neurological: State=Alert, Ox3, OSHEA Respiration: Resp=14 B/min, HzG6=449 %, O2=3 lpm 17:55:26 Bilateral groin prepped with 2% chlorhexidine, and draped after a 3 min. waiting time. 17:59:46 MD paged 18:00:08 Reference ECG taken 18:00:54 MD responded 18:01:09 MD arrived. Time Out. Correct patient, procedure, procedure equipment, site and side verified with physicia n present. Time 18:01:42 concurred by MD, individual staff and LEGAL CASHIER. Time Out #2 - Consents verified, patient in correct position, all results are labled and displa yed, safety precautions 18:01:59 taken, antibiotics administered. Time out concurred by MD, individual staff and LEGAL CASHIER in procedu re 18:02:00 Case Start 18:02:03 20 mL 1% XYLOCAINE given in lab by Warren Bland in Right Groin via Subcutaneous. Ordered b Warren Charles. 18:02:16 Vascular access was obtained in the Fem Vein (right). 18:02:23 Vascular access was obtained in the Fem Vein (right). 18:02:26 Vascular access was obtained in the Fem Vein (right). 18:02:27 Vascular access was obtained in the Fem Vein (right). 18:02:30 A SHEATH, EPS, FR5 FAST CATH FR 5 was advanced into the Fem Vein (right) using the Modified Seldinger technique. 18:02:35 A SHEATH, EPS, FR5 FAST CATH FR 5 was advanced into the Fem Vein (right) using the Modified Seldinger technique. 18:02:40 A SHEATH, EPS, FR5 FAST CATH FR 5 was advanced into the Fem Vein (right) using the Modified Seldinger technique. 18:03:48 A SHEATH, EPS, FR6 FAST CATH FR 6 was advanced into the Fem Vein (right) using the Modified Seldinger technique. A CATHETER, JSN, QUAD FR 5 was advanced vis Fem Vein (right) and placed in the CS. Placement wa s visually 18:06:06 confirmed under fluoroscopy. A CATHETER, JSN, QUAD FR 5 was advanced vis Fem Vein (right) and placed in the HIS. Placement w as visually 18:06:29 confirmed under fluoroscopy. A CATHETER, JSN, QUAD FR 5 was advanced vis Fem Vein (right) and placed in the HRA. Placement w as visually 18:06:34 confirmed under fluoroscopy. A CATHETER, JSN, QUAD FR 5 was advanced vis Fem Vein (right) and placed in the RVOT. Placement was visually 18:06:42 confirmed under fluoroscopy. 02/27/2018 6:33:57 PM Financial #: [id number] Patient Name: Zachery Beltre Study #: [id number] Initial MD: Warren Bland Date of : 1930 Study Date: 02/27/2018 18:09:47 EP Procedure was performed. 18:10:01 Sheath(s) left in place, will be removed later. 18:10:20 Initial procedure has been completed. Beginning additional procedure. End Study - Contrast Media Used In Study Contrast Total Opened (mL) Total Used (mL) Total Wasted (mL) Unspecified 0 0 0 End Study - Maximum Contrast Load Max Contrast Load (mL) 303.3 End Study - Radiation Exposure Fluoro Time (minutes) 1.1 End Study - Patient Disposition Complications Transferred To Telemetry Bed 02/27/2018 6:33:57 PM Financial #: [id number] 7 7
--- NOTE | 2018-02-27 19:52 | CATHPROC ---
Patient Name: Zachery Beltre Study #: [id number] Initial MD: Warren Bland Date of : 1930 Study Date: 02/27/2018 Cardiac Catheterization Report 02/27/2018 7:51:45 PM Financial #: [id number] 1 of 8 Patient Name: Zachery Beltre Study #: [id number] Initial MD: Warren Bland Date of : 1930 Study Date: 02/27/2018 Entire Case Report Patient Information Patient Name Zachery Beltre Date of 1930 Age 87 years Financial # [id number] Gender M AlternateID Lab Number 2 Room Number 444 Height (in) 65.0 Height (cm) 165.1 BSA 1.86 Weight (lbs) 173.5 Weight (kg) 78.9 Patient Address/Phone Number Home Address [facility] Home Phone Number [phone] [facility] [phone] Study Information Study Number Admission Scheduled Start Study Start [id number] Feb 27 2018 5:25AM 02/27/2018 Feb 27 2018 5:17PM [place] Service Cath Endovascular Study Admit Source Facility Department Other [facility] - Jigger Operator Physician and Clinical Staff Initial Warren [place] Boot And Saddle Repair Person Marisol NayakRT(R) TECH2 Boot And Saddle Repair Person Kiley Brooks RN Other Anesthesia, BOTTLE HOP Recorder Dannielle Mcclellan RN Scrub Zafar EscalanteRT(R) Procedures Performed Procedure Lead Insertion 02/27/2018 7:51:45 PM Financial #: [id number] 2 of 8 Patient Name: Zachery Beltre Study #: [id number] Initial MD: Warren Bland Date of : 1930 Study Date: 02/27/2018 Equipment Time Information Director Description Size Mfg Part Number Used/Scraped 18:48 BIOTRONIK LEAD, SOLIA 60 PRO MRI * [id number] Used 18:52 BIOTRONIK LEAD, SOLIA 60 53 PRO MRI * [id number] Used PACEMAKER, ENDORA 8 DR-T PRO 18:59 BIOTRONIK DDDR [id number] Used MRI DERMABOND, ADHESIVE SKIN [id number] 18:21 CORDIS/PACER * Used GLUE MINI *[id number] 18:21 [employer] BLANKET,WARM AIR CCL * Used *[id number] TP-1103 18:21 [employer] SUTURE, STRIP PLUS 1/2" * Used *[id number] 18:21 MEDLINE PACER ROBERT, LIMB * 2530 *[id number] Used [id number] 18:21 MEDLINE PACER PACK, PACER CUSTOM * Used *[id number] 18:47 [employer] PACER SAFE SHEATH, FR7, 13CM FR 7 [id number] Used 18:47 [employer] PACER SAFE SHEATH, FR7, 13CM FR 7 [id number] Used 18:39 Needle Sponge Count 2 22 Used 18:39 Needle Sponge Count 20 200 Used 18:39 Needle Sponge Count 4 4 Used SUTURE, 0 ETHIBOND [CT1] (CX21D), 8pk SUTURE, 2-0 VICRYL [CT1] (CIH315E) SUTURE, 2-0 VICRYL [CT1] (HDV815M) [facility] PAD, ELECTROSURGICAL 18:21 * [id number] *[id number] Used SURGICAL GROUNDING ORANGE [id number] 18:21 [employer] ISABELLE. / * Used *25521 Equipment Model, Serial, Lot Number and Expiration Data Description Model Number Serial Number Lot Number Expiration Date LEAD, SOLIA 60 PRO MRI [id number] 06-14-2019 LEAD, SOLIA 60 53 PRO MRI [id number] 11-14-2019 PACEMAKER, ENDORA 8 BRISEIDA GARCÍA [id number] 06-14-2019 MRI Insurance Information Insurance Payor Medicare Third Libertarian Third Libertarian Number MEDICARE A B MCRAB History: Allergies Allergy Reaction No Known Allergies 02/27/2018 7:51:45 PM Financial #: [id number] 3 of 8 Patient Name: Zachery Beltre Study #: [id number] Initial MD: Warren Bland Date of : 1930 Study Date: 8 History: Risk Factors Family History of Hypertension Dyslipidemia Previous [place] Previous Heart Failure Premature CAD Yes Yes Yes Yes Yes Prior Valve Prior PCI Prior CABG Surgery Yes Yes Yes Cerebrovascular Peripheral Artery Chronic Lung On Dialysis Diabetes Disease Disease Disease No Yes Yes Yes No Labs Hgb (g/dl) Hct (%) WBC (l/cumm) Platelets (thousands) 11.60-17.00 35.00-51.00 4.00-11.00 150.00-450.00 12.7 36.9 6.1 185 Glucose (mg/dl) BUN (mg/dl) Creatinine (mg/dl) BUN:Creatinine (1:x) 74.00-106.00 7.00-18.00 0.50-1.30 10.00-20.00 99 18 1.3 13.8 Na (meq/l) K (meq/l) 136.00-145.00 3.50-5.10 140 3.8 INR (PTT:PT) 0.90-1.10 1.1 Medication Medication Total Dose (Bolus/Oral) Medication Total Dosage/Unit 1% XYLOCAINE 20 mL 2% XYLOCAINE 50 mL Medications (Bolus/Oral) Medication Time Given Dosage/Unit Administered By Reason 2% XYLOCAINE 02/27/2018 6:44:13 PM 50 mL Warren Bland 50 mL 2% XYLOCAINE given in lab by Warren Bland in Left shoulder via Subcutaneous. Ordered by Warren Bland. 1% XYLOCAINE 02/27/2018 7:08:53 PM 20 mL Warren Bland 20 mL 1% XYLOCAINE given in lab by Warren Bland via Subcutaneous left sternal. Ordered by Spencer Bland. 02/27/2018 7:51:45 PM Financial #: [id number] 4 of 8 Patient Name: Zachery Beltre Study #: [id number] Initial MD: Warren Bland Date of : 1930 Study Date: 02/27/2018 Medication (Drip) Medication Time Given Dosage/Unit Concentration/Unit Diluent (ml) Solution ANCEF 02/27/2018 6:23:07 PM 2 g 2 g ANCEF given in lab by Anesthesia, BOTTLE HOP via Peripheral IV. Ordered by Warren Bland. Reason: As pe r physicians verbal order. VANCOMYCIN DRIP 02/27/2018 6:23:24 PM 1 g 1 g VANCOMYCIN DRIP given in lab by Anesthesia, BOTTLE HOP via Peripheral IV. Ordered by Warren Bland. Ketty son: As per physicians verbal order. Final Case Assessment Cardiovascular HR NIBP 75 164/64 Edema Present Skin color Skin None Normal Warm Dry Circulatory - Right Pulses Dorsalis Pedis 1 Scale (0,1,2,3,4,d) Circulatory - Left Pulses Dorsalis Pedis 1 Scale (0,1,2,3,4,d) Circulatory - Lower Extremities Color Lower Right Color Lower Left Normal Normal Neurological State Drowsy Moves all extremities Respiration - General Respiration Rate SpO2 (%) (B/min) 12 100 Chronological Log Time Study Chronological Log 18:10:02 NOTE: This patient is undergoing an additional procedure while still in the Cardiac Cath L ab. 18:10:03 All EPS Catheter(s) removed without difficulty except RVOT quad cath remains in place. 18:10:12 Anesthesia remains at bedside assuming care of patient. 18:10:25 Dr. Oviedo present for LMA insertion. 02/27/2018 7:51:45 PM Financial #: [id number] 5 of 8 Patient Name: Zachery Beltre Study #: [id number] Initial MD: Warren Bland Date of : 1930 Study Date: 02/27/2018 18:10:26 Table restraints applied according to hospital policy 18:10:29 Disposable Defibrillator Pads remain On Patient. 18:17:33 2% CHLORHEXIDINE GLUCONATE WASH AND NASAL SWIPE DONE PRIOR TO PROCEDURE. 18:18:11 Bovie ground pad applied to: left thigh 18:19:21 Reference ECG taken 2 g ANCEF given in lab by Anesthesia, BOTTLE HOP via Peripheral IV. Ordered by Warren Bland. Reason: As per physicians 18:23:07 verbal order. 1 g VANCOMYCIN DRIP given in lab by Anesthesia, BOTTLE HOP via Peripheral IV. Ordered by Rony Bland Reason: As per 18:23:24 physicians verbal order. 18:28:06 Bilateral Upper Chest Prepped Times Two. First Sponge And Instrument Count Done by Zafar Escalante, RT(R). 18:36:32 Hypo's: 4, Sponges: 20, Bovie/scratch: 2 Sutures: 10, Blades: 1, Instruments: 26, Syveck Patches: 0 verified by 18:38:05 Reference ECG taken 18:38:28 A sterile drape was applied after a 5 minute prep drying time. Time Out. Correct patient, procedure, procedure equipment, site and side verified with physicia n present. Time 18:44:01 concurred by MD, individual staff and BOTTLE HOP. Time Out #2 - Consents verified, patient in correct position, all results are labled and displa yed, safety precautions 18:44:06 taken, antibiotics administered. Time out concurred by MD, individual staff and BOTTLE HOP in procedu re 18:44:11 Case Start 18:44:13 50 mL 2% XYLOCAINE given in lab by Warren Bland in Left shoulder via Subcutaneous. Ordered by Warren Bland. 18:46:24 Vascular access was obtained in the Subclav. Vein (Lft. 18:46:51 Wire inserted 18:46:54 A SAFE SHEATH, FR7, 13CM FR 7 was advanced into the Subclav. Vein (Lft using the Cutdown te chnique. 18:47:33 Surgical Incision Made. 18:47:45 A pocket was created at the L Upper Chest. 18:48:49 A LEAD, SOLIA 60 PRO MRI * was inserted and positioned in the RV. 18:50:03 Lead placement verified under fluoroscopy 18:51:02 The RV lead impedance and threshold being tested. 18:52:00 The RV lead was sutured to the fascia. 18:53:43 Vascular access was obtained in the Subclav. Vein (Lft. 18:53:48 Wire inserted 18:53:55 A SAFE SHEATH, FR7, 13CM FR 7 was advanced into the Subclav. Vein (Lft using the Cutdown te chnique. 18:54:38 A LEAD, SOLIA 60 53 PRO MRI * was inserted and positioned in the RA. 18:54:48 Lead placement verified under fluoroscopy 18:56:44 The Atrial lead impedance and threshold is being tested. 18:57:35 The Atrial lead was sutured to the fascia. 18:59:27 Pocket flushed with antibiotic solution 18:59:32 A PACEMAKER, ENDORA 8 DR-T PRO MRI DDDR was connected and placed in the pocket. 02/27/2018 7:51:45 PM Financial #: [id number] 6 of 8 Patient Name: Zachery Beltre Study #: [id number] Initial MD: Warren Bland Date of : 1930 Study Date: 02/27/2018 Second Sponge And Instrument Count Done by Zafar Escalante, RT(R). 19:02:27 Hypo's: 4, Sponges: 20, Bovie/scratch: 2 Sutures: 10, Blades: 1, Instruments: ~INSTRU~, Syveck Patches: 0 verified by SH 19:02:47 The pocket is being closed. 19:07:39 The pocket was closed. 19:08:53 20 mL 1% XYLOCAINE given in lab by Warren Balnd via Subcutaneous left sternal. Ordered by Warren Bland. 19:09:33 Loop Recorder Removed. 19:09:58 EPS Catheter removed without difficulty (RVOT quad). 19:10:00 Case End (Physician broke scrub) 19:10:05 Implant Procedure was performed. 19:11:40 A PPM Implant . (Dual) 19:16:57 Steri-strips and a sterile dressing applied to site. 19:17:16 RIJ TV pacer removed per md order by anesthesia. 19:17:18 RIJ introducer Sheath removed; pressure applied to access site. 19:17:39 A Loop Recorder Removed . (Single) 19:17:52 CVICU called. Spoke to mehnaz 19:19:05 Bedside Report will be given. 19:22:04 A Sterile dressing and pressure dsg applied to RIJ site 19:22:26 No case complications noted. 19:22:28 Cine recording checked. 19:22:33 Implantable Device card placed in patient's chart. 19:25:29 Right femoral venous Sheaths removed; pressure applied to access site. 19:35:48 Sterile dressing applied to site rt groin. 19:36:31 LMA removed by anesthesia and supplemental oxygen given by [facility]. Assessment: Final Case, HR=75 BPM, LGEZ=780/64 mmhg, Edema=None, Color=Normal, Skin = Warm, Dr y Right Pulses: Tonio Ped=1 Left Pulses: Tonio Ped=1 19:37:11 Lower Right Extremities: Color=Normal Lower Left Extremities: Color=Normal Neurological: State=Drowsy, OSHEA Respiration: Resp=12 B/min, LwM8=095 % 19:38:04 Defibrillator and ground pads removed. Skin intact. 19:40:14 Patient moved to stretcher and transported back to CVICU with BOTTLE HOP and tech accompanying. End Study - Contrast Media Used In Study Contrast Total Opened (mL) Total Used (mL) Total Wasted (mL) Unspecified 0 0 0 02/27/2018 7:51:45 PM Financial #: [id number] 7 of 8 Patient Name: Zachery Beltre Study #: [id number] Initial MD: Warren Bland Date of : 1930 Study Date: 02/27/2018 End Study - Maximum Contrast Load Max Contrast Load (mL) 303.3 End Study - Radiation Exposure Fluoro Time (minutes) 2.9 End Study - Sheaths Sheaths Pulled By Sheath Hold Time (min) Marisol Nayak 10 End Study - Patient Disposition Complications Transferred To No Critical Care Bed 02/27/2018 7:51:45 PM Financial #: [id number] 8 of 8
--- NOTE | 2018-02-27 21:05 | XR ---
EXAM DATE: 02/27/2018 8:54 PM EST AGE/SEX: 87 years / Male INDICATIONS: Post op pacemaker placement CLINICAL DATA: This is the patient's initial encounter. Patient reports that signs and symptoms have been present for 1 day and indicates a pain score of 10/10. MEDICAL/SURGICAL HISTORY: . Heart disease. Hypertension. Cardiovascular disease. COPD. A-fib. T IA. Aortic stenosis. . CABG. Coronary artery stent. COMPARISON: POI, XR CHEST PA AND LAT, 03/21/2017. . FINDINGS: A single AP view of the chest demonstrates the lungs to be symmetrically aerated without evidence of mass, infiltrate or effusion. Bilateral calcified pleural plaques. Status post CABG. Left-sided pacem carmela with 2 leads are noted. The cardiomediastinal contours are unremarkable. Osseous structures are intact. Right jugular line with tip in the SVC. CONCLUSION: 1. Bilateral calcified pleural plaques characteristic of asbestosis exposure. 2. Status post CABG. 3. No acute cardiopulmonary disease. Electronically signed by: Indio Hughes MD 02/27/2018 9:04 PM EST
[2018-02-27] MEDS ORDERED: ALPRAZolam 0.5 MG Tablet PO PRN (21:26)
[2018-02-27] MEDS ORDERED: Magnesium Sulfate Inj 2 GM in Sodium Chlor 0.9% Inj 96 ML IV.SIG PRN (21:30)
[2018-02-27] MEDS ORDERED: Magnesium Sulfate Inj 4 GM in Sodium Chlor 0.9% Inj 92 ML IV.SIG PRN (21:30)
[2018-02-27] MEDS ORDERED: Potassium Phosphate 500 MG Soluble Tablet PO PRN ×2 (21:30)
[2018-02-27] MEDS ORDERED: Magnesium Oxide 400 MG Tablet PO PRN (21:30)
[2018-02-27] MEDS ORDERED: Potassium Chlor 40 mEq Premix 40 MEQ/100 ML PIGGYBACK IV.SIG PRN ×2 (21:30)
[2018-02-27] MEDS ORDERED: Potassium Chloride 25 MEQ Effervescent Tablet PO PRN (21:30)
[2018-02-27] MEDS ORDERED: Sodium Phosphate Inj 30 MMOL in Sodium Chlor 0.9% Inj 250 ML IV.SIG PRN (21:30)
[2018-02-27] MEDS ORDERED: Potassium Chlor 20 mEq Premix 20 MEQ/100 ML PIGGYBACK IV.SIG PRN ×2 (21:30)
[2018-02-27] MEDS ORDERED: Potassium Phosphate Inj 30 MMOL in Sodium Chlor 0.9% Inj 250 ML IV.SIG PRN (21:30)
[2018-02-27] MEDS: levETIRAcetam 500 MG Tablet PO SCH (22:09)
--- NOTE | 2018-02-27 23:48 | MA ---
cc: Warren Bland MD DATE: 02/27/2018 DATE OF PROCEDURE: Mr. Beltre is an 87-year-old gentleman with history of coronary artery disease, coronary artery bypass grafting, status post aortic valve replacement, who developed an AV block post-procedure. Apparently, there is some resolution of the block. I was consulted for electrophysiology study. The risks, the nature and the benefits of the procedure were clearly stated to him. Risks include pneumothorax, cardiac perforation, stroke and even . The patient and family understand and agreed to proceed. PROCEDURE: After informed consent was obtained, the patient was evaluated by the anesthesiologist. Once sedation was verified, the right inguinal area was anesthetized with 2% Xylocaine. Using modified Seldinger technique, the left femoral vein was cannulated on 4 occasions, 4 guidewires were advanced. Over the wire, 5 and a 6-Niuean Hemaquet were advanced. Then, under fluoroscopic guidance through the 5 and 6-Niuean Hemaquet, ____ curved quadripolar electrophysiology catheters were advanced ____. Atrium, coronary sinus and right ventricular apex. Basic interval was measured at that point, the patient went into intermittent AV block. Subsequently, alternating bundle branch block. This is a sign of high grade AV block. Agitation of the ventricular plus/or capture. There was good capture. No tachyarrhythmia was induced. At that point, the procedure was complete. All catheters were removed. The patient has a high-grade AV block status. Again, a new left bundle branch block developed during the procedure. 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 The patient has a class 1 indication for permanent pacemaker. The patient is going to be kept on the table and device will be implanted. No S3 reported. The patient tolerated the procedure. Blood loss minimal. 1. Echocardiogram at baseline, the patient was in sinus. Postprocedure, the patient in cyanosis with left bundle branch block. 2. Basic interval: Base cycle length was around 900 milliseconds. AH was around 90 and HV was long around 80 milliseconds. Sometime is estimated between variability and 38.8-80 milliseconds. Ventricular pacing protocol. No tachyarrhythmia was induced. CONCLUSION: ____ disease or intermittent bundle branch block. RECOMMENDATIONS: The patient will be kept on the table. A dual-chamber permanent pacemaker will be implanted. No incident to report. The patient tolerated the procedure. Blood loss minimal. MD FERNANDEZ Gregorio/bear/leisa , 08:05 PM , 08:14 PM
[2018-02-28] MEDS: ceFAZolin 2 GM Premix Inj 2 GM/50 ML PIGGYBACK IV.SIG SCH ×3 (02:05→18:32)
[2018-02-28] MEDS: Morphine Sulfate Inj 2 MG/ML Vial IV.PUSH PRN (02:39)
[2018-02-28 04:33] LABS: Hematocrit 29.3 % (39.0-51.0); Hemoglobin 9.6 gm/dL (13.0-17.0); Mean Corpuscular HGB Conc 32.8 % (32.0-36.0); Mean Corpuscular Hemoglobin 32.3 pg (27.0-34.0); Mean Corpuscular Volume 98.3 fL (80.0-100.0); Mean Platelet Volume 9.1 fL (7.0-11.0); Platelet Count 138 th/mm3 (150-450); Red Blood Count 2.98 mil/mm3 (4.50-5.90); Red Cell Distribution Width 14.1 % (11.6-17.2); White Blood Count 9.7 th/mm3 (4.0-11.0)
[2018-02-28 05:05] LABS: Alanine Aminotransferase 20 U/L (12-78); Albumin 2.9 g/dL (3.4-5.0); Alkaline Phosphatase 89 U/L (45-117); Anion Gap 8 meq/L (5-15); Aspartate Aminotransferase 30 U/L (15-37); Blood Urea Nitrogen 16 mg/dL (7-18); Calcium 7.9 mg/dL (8.5-10.1); Chloride 107 meq/L (98-107); Glomerular Filtration Rate 52 mL/min (>89); Glucose,Random 148 mg/dL (74-106); Sodium 142 meq/L (136-145); Total Protein 6.3 g/dL (6.4-8.2)
--- NOTE | 2018-02-28 07:33 | MB ---
cc: Warren Bland MD DATE: 02/27/2018 REASON FOR CONSULTATION: Complete AV block during TAVR, new left bundle branch block. HISTORY OF PRESENT ILLNESS: Mr. Beltre is an 87-year-old gentleman with a history of high blood pressure, hyperlipidemia, atrial fibrillation, CVA, coronary artery disease, coronary artery bypass grafting, previous aortic stenosis, who was scheduled today for transaortic valve replacement. Procedure was successful. During the hospitalization, this gentleman developed complete AV block requiring V pacing. Subsequently, left bundle branch block. I was consulted for evaluation and management. The chart was reviewed. The patient was evaluated. ALLERGIES: NONE REPORTED. SOCIAL HISTORY: Negative for smoking and drinking. FAMILY HISTORY: Noncontributory to his current medical condition. MEDICATIONS: The patient is on Tylenol, aspirin, Plavix, Zofran. REVIEW OF SYSTEMS: Currently, the patient referred no chest pain, no chest discomfort, some shortness of air, but no fever. PHYSICAL EXAMINATION: GENERAL: Alert, fully oriented. VITAL SIGNS: Blood pressure on evaluation 138/42, pulse 70, AV paced, respiratory rate 16. LUNGS: Ventilated. CARDIOVASCULAR: S1, S2. Regular. No gallop. Right jugular central line for V pacing. ABDOMEN: Soft. No mass. EXTREMITIES: With no edema. ELECTROCARDIOGRAM: Electrocardiogram on hospitalization indicates sinus rhythm, diffuse ST changes. Electrocardiogram taken at 10:21 indicates V pacing at a rate of around 50 beats per minute. LABORATORY DATA: Hemoglobin 12.7, white blood cell 6.1. INR 1.1. Creatinine 1.34, potassium 3.8. ASSESSMENT AND RECOMMENDATIONS: Mr. Beltre has intermittent AV block. ____ decrease a rate of the pacemaker to 140. Sinus rhythm, rate of around 30-40 beats per minute was subsequently increased. There are diffuse ST changes. AT this point, my recommendation is electrophysiology study. If there is any conduction disease, then permanent pacemaker will be inserted. The patient already has a loop recorder. The risks, the nature and the benefits of the procedure are clearly stated to the patient and family. Risks include pneumothorax, cardiac perforation, stroke and even . He understands and agreed to proceed. Procedure will be performed today. MD FERNANDEZ Gregorio/sanjeev/leisa , 08:01 PM , 08:10 PM
[2018-02-28] MEDS ORDERED: [UNRECOGNIZED DRUG - OTHER] NEB SCH (08:00)
[2018-02-28] MEDS ORDERED: ARFORMOTEROL 15 MCG NEB SCH (08:00)
--- NOTE | 2018-02-28 08:21 | P.DCO ---
- Physical Therapy Order: Evaluate and treat, Improve ambulation, Strength and gait training - Home Health Nursing Order: CHF education, Wound care and dressing changes - Case Management Consult Case Management Consult-Home Health: Yes - Certification I have seen patient Zachery Beltre on 02/28/18. My clinical findings support the need for the requested home health care services because: Patient has SOB, Deconditioned with increased weakness I certify that my clinical findings support that this patient is homebound because: Post-op weakness
--- NOTE | 2018-02-28 08:34 | P.DS ---
Date of admission: 02/27/18 05:25 Primary care physician: Uziel Franklin MD Attending physician on discharge: James Monroe Anticipated date of discharge: 02/28/18 Brief History from admission: This is an 87-year-old male with history of hypertension, hyperlipidemia, paroxysmal atrial fibrillation, transient ischemic attack, coronary artery disease and prior coronary artery bypass surgery 1984 along with percutaneous coronary intervention, severe peripheral arterial disease, obstructive sleep apnea who presents with progressive shortness of breath. Transthoracic echocardiogram performed in November 2017 showed preserved left ventricular systolic function with moderate aortic insufficiency and severe aortic valve stenosis. Patient was felt to be high perioperative surgical risk and referred for consideration of transcatheter aortic valve replacement. Patient update on day of discharge: Doing well this morning. Up at bedside sitting in a chair eating breakfast. No complaints. DS: Diagnosis - Discharge Diagnosis (1) Aortic stenosis Status: Acute (2) Acute on chronic diastolic (congestive) heart failure Status: Acute DS: Medications - Discharge Medications Prescriptions: ferrous sulfate [FeroSul] 325 mg PO DAILY #30 tab lisinopril 2.5 mg PO DAILY #30 tab DS: Summary Hospital Course: Transcatheter aortic valve replacement went well. Patient was taken for electrophysiology study and permanent pacemaker placed. Transcatheter valve replacement Acute on chronic diastolic congestive heart failure - gentle diuresis Initiate low-dose angiotensin-converting enzyme inhibitor. Patient has history of benign prostatic hypertrophy on Flomax. Patient has yet to urinate today. We will restart home medications. Patient does well throughout today and is able to urinate without difficulty, anticipate discharge later today. Patient will be evaluated by physical therapy to determine whether home physical therapy may be helpful. We will consult case management to make arrangements for consideration of home health and possible home physical therapy arrangements. - Time Spent with Patient Total time spent providing and/or coordinating discharge services: Greater than 30 minutes Exam Vital signs: Vital Signs 02/27/18 11:10 02/27/18 11:30 02/27/18 12:00 Temperature 93.3 F L 93.2 F L Pulse Rate 84 50 L 50 L Respiratory Rate 16 16 Blood Pressure 136/69 112/58 L Pulse Oximetry 99 99 02/27/18 13:00 02/27/18 14:00 02/27/18 15:00 Temperature 93.9 F L 94 F L 96.3 F L Pulse Rate 59 L 61 57 L Respiratory Rate 16 14 14 Blood Pressure 138/66 118/60 125/58 L Pulse Oximetry 99 99 99 02/27/18 16:00 02/27/18 17:00 02/27/18 19:00 Temperature 96.4 F L 97.0 F L 97.5 F L Pulse Rate 70 70 70 Respiratory Rate 16 16 16 Blood Pressure 126/60 129/70 Pulse Oximetry 99 98 97 02/27/18 19:17 02/27/18 19:32 02/27/18 19:47 Temperature Pulse Rate 64 66 65 Respiratory Rate 16 16 16 Blood Pressure 104/67 Pulse Oximetry 97 98 98 02/27/18 20:00 02/27/18 20:02 02/27/18 20:28 Temperature Pulse Rate 63 Respiratory Rate 16 16 Blood Pressure 108/56 L Pulse Oximetry 99 96 02/27/18 20:32 02/27/18 21:02 02/27/18 21:32 Temperature Pulse Rate 66 65 67 Respiratory Rate 16 16 16 Blood Pressure 122/67 Pulse Oximetry 99 99 99 02/27/18 22:02 02/27/18 23:00 02/27/18 23:02 Temperature 98.5 F 98.5 F Pulse Rate 69 75 77 Respiratory Rate 16 16 16 Blood Pressure 167/98 H 142/66 H 142/66 H Pulse Oximetry 99 99 99 02/27/18 23:11 02/28/18 00:02 02/28/18 01:02 Temperature Pulse Rate 73 73 Respiratory Rate 16 16 16 Blood Pressure 142/66 H 129/63 Pulse Oximetry 99 97 02/28/18 02:02 02/28/18 03:00 Temperature 98.3 F Pulse Rate 76 75 Respiratory Rate 16 16 Blood Pressure 127/63 131/64 Pulse Oximetry 98 99 Intake & Output 02/27/18 02/28/18 02/28/18 18:59 06:59 18:59 Intake Total 1150 / 1150 240 / 240 50 / 50 Output Total 2075 / 2075 250 / 250 Balance -925 / -925 -10 / -10 50 / 50 Weight 79.5 kg Intake: IV 150 / 150 50 / 50 Ancef 1 GM Premix Inj 2 gm In 100 / 100 100 ml @ 0 mls/hr IV.SIG .STK- [facility] Rx#:[id number] Ancef 2 GM Premix Inj 2 gm In 50 / 50 50 / 50 50 ml @ 100 mls/hr IV.SIG Q8H [facility] Rx#:[id number] Oral 0 / 0 240 / 240 Anesthesia Amount 1000 / 1000 Output: Estimated Blood Loss 100 / 100 Urine Amount (Catheter) 1974 250 / 250 Indwelling Temp Sensing 1974 250 / 250 Catheter Other: # Bowel Movements 0 - Constitutional no acute distress - Routine HEENT Exam Head: Present: normocephalic Eye: Present: EOMI, PERRL ENT: Present: mucous membranes moist - Routine Neck Exam Absent: JVD - Routine Respiratory Exam Present: CTA bilaterally - Routine Cardiovascular Exam Present: RRR, murmur - Routine Abdominal Exam Present: soft, normoactive bowel sounds - Routine Extremities Exam Absent: edema - Routine Skin Exam Absent: erythema - Routine Neurological Exam Present: oriented X3, CN II-XII intact. Absent: sensory deficit, motor deficit Results Procedures completed during hospitalization: Transcatheter aortic valve replacement Permanent pacemaker placement Labs on day of discharge: Labs from last 24 hours 02/28/18 02/28/18 02/27/18 03:40 03:40 05:39 WBC 9.7 RBC 2.98 L Hgb 9.6 L Hct 29.3 L MCV 98.3 MCH 32.3 MCHC 32.8 RDW 14.1 Plt Count 138 L MPV 9.1 Sodium 142 Potassium 4.0 Chloride 107 Carbon Dioxide 27.0 Anion Gap 8 BUN 16 Creatinine 1.30 Estimated GFR 52 L Random Glucose 148 H Calcium 7.9 L Total Bilirubin 0.3 AST 30 ALT 20 Alkaline Phosphatase 89 Total Protein 6.3 L Albumin 2.9 L MTS Gel Crossmatch See Detail - Impressions ITS Impressions Chest X-Ray 02/27/18 00:00 CONCLUSION: 1. Bilateral calcified pleural plaques characteristic of asbestosis exposure. 2. Status post CABG. 3. No acute cardiopulmonary disease. Discharge Plan - Discharge Disposition Patient Disposition: W/Home Health Service - Discharge Condition Condition: Good - Discharge Order Discharge Orders: Discharge Order (Routine); Ordered 02/28/18 Ordered By: James Monroe - Discharge Details Anticipated Discharge Date: 02/28/18 - Physicians Team Primary Care Provider: Uziel Franklin Attending Provider: James Monroe Other Providers: Raimundo Edmonds MD ; Anirudh Nathan MD ; Warren Bland MD - Rxs /Orders / Referrals /Forms Prescriptions: New ferrous sulfate [FeroSul] 325 mg (65 mg iron) Tablet 325 mg PO DAILY Qty: 30 RF: 1 lisinopril 5 mg Tablet 2.5 mg PO DAILY Qty: 30 RF: 1 Continue allopurinol 100 mg Tablet 100 mg PO BID alprazolam [Xanax] 1 mg Tablet 1 mg PO BID PRN (Reason: Anxiety) arformoterol [Brovana] 15 mcg/2 mL Solution For Nebulization 15 mcg INHALATION Q12H aspirin 81 mg Tablet,Chewable 81 mg PO DAILY RF: 0 atorvastatin 80 mg Tablet 80 mg PO DAILY clopidogrel [Plavix] 75 mg Tablet 75 mg PO DAILY cyanocobalamin-cobamamide [B-12 Plus] 5,000-100 mcg Tablet, Sublingual 1 cc ezetimibe [Zetia] 10 mg Tablet 10 mg PO DAILY RF: 0 levetiracetam [Keppra] 500 mg Tablet 500 mg PO Q12H levothyroxine 25 mcg Tablet 25 mcg PO DAILY mometasone [Asmanex Twisthaler] 110 mcg (30 doses) Aerosol Powdr Breath Activated 2 inh INHALATION QPM nitroglycerin [Nitrostat] 0.4 mg Tablet, Sublingual See Label Instructions .ROUTE .COMPLEX potassium chloride [Klor-Con 10] 10 mEq Tablet Extended Release 10 meq PO TID RF: 0 tamsulosin [Flomax] 0.4 mg Capsule 0.4 mg PO DAILY torsemide [Demadex] 20 mg Tablet 20 mg PO DAILY trandolapril 1 mg Tablet 1 mg PO DAILY Discontinued amlodipine [Norvasc] 10 mg Tablet 10 mg PO DAILY atenolol 25 mg Tablet 25 mg PO DAILY Referrals: Uziel Franklin MD [Primary Care Provider] - See Instructions - Discharge Instructions Patient Printed Instructions: Transcatheter Aortic Valve Replacement (DC), Pacemaker (DC)
[2018-02-28] MEDS: levETIRAcetam 500 MG Tablet PO SCH ×2 (09:05→21:00)
[2018-02-28] MEDS: Lisinopril 5 MG Tablet PO SCH (09:05)
[2018-02-28] MEDS: Ferrous Sulfate 325 MG Tablet PO SCH (09:06)
[2018-02-28] MEDS: Allopurinol 100 MG Tablet PO SCH ×2 (09:06→20:45)
[2018-02-28] MEDS: Torsemide 20 MG Tablet PO SCH (09:06)
[2018-02-28] MEDS: Ezetimibe 10 MG Tablet PO SCH (09:06)
[2018-02-28] MEDS: Furosemide 20 MG Tablet PO SCH (09:06)
--- NOTE | 2018-02-28 09:36 | MP ---
cc: Warren Bland MD DATE OF OPERATION: 02/27/2018 PROCEDURE: Dual-chamber pacemaker insertion and loop recorder removal. INDICATIONS: Mr. Beltre is a 67-year-old gentleman, intermittent AV block, alternating bundle branch block status post TAVR, will undergo permanent pacemaker insertion. The risks, the nature, and the benefits of the procedure are clearly stated to him. Risks include pneumothorax, cardiac perforation, stroke, need for open heart surgery, and even . The patient understood and agreed to proceed. DESCRIPTION OF PROCEDURE: After written informed consent was obtained prior to electrophysiology study, the patient was kept on the table where he was prepped and draped in the usual sterile fashion. Conscious sedation was initiated and maintained throughout the procedure by the anesthesiologist. Once sedation was verified, the left infraclavicular area was anesthetized with 2% Xylocaine. Using modified Seldinger technique, the left subclavian vein was cannulated on 2 occasions, and 2 guidewires were advanced. Then, using 11-blade scalpel, a 2 cm incision was made 2 fingerbreadths below the left clavicle. The incision was taken down to the deep fascial layer using Bovie cautery and blunt dissection. direction, device pocket was dissected. Then the wire was dissected into the pocket. A 2-0 Vicryl suture was placed around the wire to prevent backbleeding. At this point, over the lateral wire, a 7-Faroese dilator and introducer was advanced. The dilator and wire were removed. An active fixation right ventricular pacing/sensing lead was advanced. After adequate pacing and sensing threshold obtained, the lead was secured to the pocket using #2 Ethibond suture. Then over the remaining wire, a 7-Faroese dilator and introducer was advanced. The dilator and wire were removed. An active fixation right atrial pacing and sensing lead was advanced. After adequate pacing and sensing thresholds were obtained, the lead was secured in the pocket using #2 Ethibond suture. At that point, the pocket was copiously irrigated using antibiotic solution. The leads were connected to generator and placed into the pocket. I did proceed with wound closure. The deep fascial layer was approximated using #2-0 Vicryl suture in a continuous fashion. The subcutaneous layer was approximated using #2-0 Vicryl suture in a continuous fashion. The subcuticular layer was approximated with #2-0 Vicryl suture in a continuous fashion. Dermabond adhesive was applied to the wound followed by sterile pressure dressing. At that point, I decided to remove the loop recorder. The left parasternal area was anesthetized with 2% Xylocaine. Using a #11 blade scalpel, less than 1 cm incision was made. This incision was taken down to deep fascial layer using blunt dissection. Once exposed, loop recorder was removed from the pocket. Subsequently, the border was approximated using Dermabond and Steri-Strip. No incident to report. The patient tolerated the procedure. Blood loss minimal. 1. Explanted hardware: Loop recorder is a [employer]aytronic. Please refer to previous dictation. 2. Implanted hardware: The implanted dual-chamber permanent pacemaker is a Biotronik, model #879359, serial #[id number]. The right atrial pacing/sensing lead is a Biotronik, model #[id number], serial #[id number]. The right ventricular pacing/sensing lead is a Biotronik, model #[id number], serial #[id number]. 3. Thresholds: The right atrial pacing threshold bipolar mode was 0.7 volts at 0.4 milliseconds, lead impedance 510 ohms, P-wave at 1.7 millivolts. The right ventricular pacing threshold bipolar mode was 0.4 milliseconds, lead impedance ohms, R-wave at 8.5 millivolts. CONCLUSION: Successful permanent pacemaker insertion, successful loop recorder removal. RECOMMENDATION: The patient is going to be transferred to recovery room. Will be observed. When stable, can be discharged home. Will be transferred to [facility] ICU. Further decision by the managing team. MD FERNANDEZ Gregorio/sahil/do , 08:12 PM , 08:23 PM
--- NOTE | 2018-02-28 11:56 | P.PNCV ---
- Note Subjective/Hospital Course: an 87-year-old gentleman with a history of high blood pressure, hyperlipidemia, atrial fibrillation, CVA, coronary artery disease, coronary artery bypass grafting, previous aortic stenosis, who was scheduled today for transaortic valve replacement. Procedure was successful. During the hospitalization, this gentleman developed complete AV block requiring V pacing. Subsequently, left bundle branch block. surgery: 02/27/18 Preoperative Diagnosis (1) PAD (peripheral artery disease) (2) Aortic stenosis (3) CAD (coronary artery disease) (4) Diastolic heart failure, NYHA class Procedure: Attempted left subclavian access for transcatheter aortic valve replacement, left transfemoral TAVR with a 29 Evolut R tissue valve Left subclavian artery cutdown Percutaneous left and right femoral arterial access. Aortography Fluoroscopy Postdilation balloon aortic valvuloplasty with a 22 True Balloon 02/27/18/ Dr Bland 1. Explanted hardware: Loop recorder is a [employer]. Please refer to previous dictation. 2. Implanted hardware: The implanted dual-chamber permanent pacemaker is a Biotronik, model #[id number], serial #[id number]. The right atrial pacing/sensing lead is a Biotronik, model #[id number], serial #[id number]. The right ventricular pacing/sensing lead is a Biotronik, model #[id number], serial #[id number]. 3. Thresholds: The right atrial pacing threshold bipolar mode was 0.7 volts at 0.4 milliseconds, lead impedance 510 ohms, P-wave at 1.7 millivolts. The right ventricular pacing threshold bipolar mode was 0.4 milliseconds, lead impedance ohms, R-wave at 8.5 millivolts. 02/28 up in chair on room air left arm sling in place left attempted subclavian approach site intact / prior loop recorder site intact pacer incision site intact and well approximated/ some swelling and ecchymosis to area otherwise doing well Objective: Vital Signs - 24 hr 02/27/18 12:00 02/27/18 13:00 02/27/18 14:00 Temperature 93.2 F L 93.9 F L 94 F L Pulse Rate 50 L 59 L 61 Respiratory Rate 16 16 14 Blood Pressure 112/58 L 138/66 118/60 Pulse Oximetry 99 99 99 02/27/18 15:00 02/27/18 16:00 02/27/18 17:00 Temperature 96.3 F L 96.4 F L 97.0 F L Pulse Rate 57 L 70 70 Respiratory Rate 14 16 16 Blood Pressure 125/58 L 126/60 Pulse Oximetry 99 99 98 02/27/18 19:00 02/27/18 19:17 02/27/18 19:32 Temperature 97.5 F L Pulse Rate 70 64 66 Respiratory Rate 16 16 16 Blood Pressure 129/70 104/67 Pulse Oximetry 97 97 98 02/27/18 19:47 02/27/18 20:00 02/27/18 20:02 Temperature Pulse Rate 65 63 Respiratory Rate 16 16 16 Blood Pressure 108/56 L Pulse Oximetry 98 99 02/27/18 20:28 02/27/18 20:32 02/27/18 21:02 Temperature Pulse Rate 66 65 Respiratory Rate 16 16 Blood Pressure 122/67 Pulse Oximetry 96 99 99 02/27/18 21:32 02/27/18 22:02 02/27/18 23:00 Temperature 98.5 F Pulse Rate 67 69 75 Respiratory Rate 16 16 16 Blood Pressure 167/98 H 142/66 H Pulse Oximetry 99 99 99 02/27/18 23:02 02/27/18 23:11 02/28/18 00:02 Temperature 98.5 F Pulse Rate 77 73 Respiratory Rate 16 16 16 Blood Pressure 142/66 H 142/66 H Pulse Oximetry 99 99 02/28/18 01:02 02/28/18 02:02 02/28/18 03:00 Temperature 98.3 F Pulse Rate 73 76 75 Respiratory Rate 16 16 16 Blood Pressure 129/63 127/63 131/64 Pulse Oximetry 97 98 99 02/28/18 07:00 Temperature 97.8 F Pulse Rate 74 Respiratory Rate 16 Blood Pressure 119/63 Pulse Oximetry 96 GENERAL: A&O x 3 SKIN: Warm and dry, left attempted subclavian approach site intact / prior loop recorder site intact pacer incision site intact and well approximated/ some swelling and ecchymosis to area HEAD: Normocephalic. EYES: No scleral icterus. No injection or drainage. NECK: Supple, trachea midline. No JVD or lymphadenopathy. CARDIOVASCULAR: Regular rate and rhythm without murmurs, gallops, or rubs. RESPIRATORY: Breath sounds equal bilaterally. No accessory muscle use. GASTROINTESTINAL: Abdomen soft, non-tender, nondistended. MUSCULOSKELETAL: No cyanosis, or edema. BACK: Nontender without obvious deformity. No CVA tenderness. Labs: Laboratory Results - last 12 hr 02/27/18 02/28/18 02/28/18 05:39 03:40 03:40 WBC 9.7 RBC 2.98 L Hgb 9.6 L Hct 29.3 L MCV 98.3 MCH 32.3 MCHC 32.8 RDW 14.1 Plt Count 138 L MPV 9.1 Sodium 142 Potassium 4.0 Chloride 107 Carbon Dioxide 27.0 Anion Gap 8 BUN 16 Creatinine 1.30 Estimated GFR 52 L Random Glucose 148 H Calcium 7.9 L Total Bilirubin 0.3 AST 30 ALT 20 Alkaline Phosphatase 89 Total Protein 6.3 L Albumin 2.9 L MTS Gel Crossmatch See Detail Result Diagrams: 02/28/18 03:40 02/28/18 03:40 - Plan (3) CAD (coronary artery disease) (5) S/P TAVR (transcatheter aortic valve replacement) Plan: incisions intact on ASA, statin , plavix possible dc later today stable from CVS standpoint, defer further orders to Cardiology will sign off (3) CAD (coronary artery disease) Qualifiers:
--- NOTE | 2018-02-28 12:40 | ECHRPT ---
Indication: S/P TAVR CONCLUSIONS The left ventricular systolic function is low normal with an estimated ejection fraction in the rang e of 50- 55%. Mild concentric left ventricular hypertrophy. Status-post percutaneous aortic valve replacement. Aortic valve mean gradient is 7 mmHg. BP: / HR: Rhythm: Sinus MEASUREMENTS (Male / Female) Normal Values Technical Quality:Very technically difficult study 2D ECHO LVOT Diameter 2.2 cm DOPPLER AV Peak Velocity 200.0 cm/s AV Peak Gradient 16.0 mmHg AV Mean Gradient 7.0 mmHg AV Velocity Time Integral 36.0 cm LVOT Peak Velocity 118.0 cm/s LVOT Peak Gradient 5.6 mmHg LVOT Velocity Time Integral 20.7 cm AV Area Cont Eq vti 2.2 cm AV Area Cont Eq pk 2.2 cm FINDINGS LEFT VENTRICLE The left ventricular systolic function is low normal with an estimated ejection fraction in the rang e of 50- 55%. Mild concentric left ventricular hypertrophy. RIGHT VENTRICLE Normal right ventricular size and systolic function. LEFT ATRIUM The left atrial size is normal. RIGHT ATRIUM The right atrial size is normal. ATRIAL SEPTUM Normal atrial septal thickness without atrial level shunting by limited color doppler interrogation. AORTA The aortic root and proximal ascending aorta are normal in size on limited imaging. MITRAL VALVE Structurally normal mitral valve. No mitral valve stenosis or regurgitation. AORTIC VALVE Status-post percutaneous aortic valve replacement. Aortic valve mean gradient is 7 mmHg. TRICUSPID VALVE Structurally normal tricuspid valve. No tricuspid valve stenosis or regurgitation. PULMONARY VALVE The pulmonary valve is not well visualized. VESSELS The inferior vena cava is normal in size. PERICARDIUM No pericardial effusion. James Monroe MD, FACC (Electronically Signed) Final Date:28 February 2018 12:39
[2018-02-28] MEDS ORDERED: [UNRECOGNIZED DRUG - OTHER] INH SCH (18:00)
[2018-02-28] MEDS ORDERED: MOMETASONE INH SCH (18:00)
--- NOTE | 2018-02-28 18:10 | P.PNCC ---
Subjective Subjective Remarks/Hospital Course: This is an 87yM with history of severe aortic stenosis and peripheral arterial disease who presents for elective TAVR. Initial attempt was made at left subclavian access including cut-down and exposure, however intra-operatively it was felt too high risk due to significant plaque disease in the left subclavian. After LE angiography, left common iliac was balloon angioplastied and a covered stent was placed. through this a 14 Fr sheath was placed and the remainder of the TAVR was uncomplicated via groin access. The patient arrives to the CVICU extubated and in stable condition, arousing from anesthesia. due to his somnolence, a complete ROS Is unobtainable. Limited ROS negative for RAYMUNDO, nausea, vomiting, sore throat, chest pain, shortness of breath Subjective 02/28: Patient had difficulty urinating today. Restarted tamsulosin 0.4 mg daily. Still difficulty so we will keep overnight according to primary care doctor. Objective Vital Signs / I&O: Vital Signs 02/27/18 19:00 02/27/18 19:17 02/27/18 19:32 Temperature 97.5 F L Pulse Rate 70 64 66 Respiratory Rate 16 16 16 Blood Pressure 129/70 104/67 Pulse Oximetry 97 97 98 02/27/18 19:47 02/27/18 20:00 02/27/18 20:02 Temperature Pulse Rate 65 63 Respiratory Rate 16 16 16 Blood Pressure 108/56 L Pulse Oximetry 98 99 02/27/18 20:28 02/27/18 20:32 02/27/18 21:02 Temperature Pulse Rate 66 65 Respiratory Rate 16 16 Blood Pressure 122/67 Pulse Oximetry 96 99 99 02/27/18 21:32 02/27/18 22:02 02/27/18 23:00 Temperature 98.5 F Pulse Rate 67 69 75 Respiratory Rate 16 16 16 Blood Pressure 167/98 H 142/66 H Pulse Oximetry 99 99 99 02/27/18 23:02 02/27/18 23:11 02/28/18 00:02 Temperature 98.5 F Pulse Rate 77 73 Respiratory Rate 16 16 16 Blood Pressure 142/66 H 142/66 H Pulse Oximetry 99 99 02/28/18 01:02 02/28/18 02:02 02/28/18 03:00 Temperature 98.3 F Pulse Rate 73 76 75 Respiratory Rate 16 16 16 Blood Pressure 129/63 127/63 131/64 Pulse Oximetry 97 98 99 02/28/18 07:00 02/28/18 11:00 02/28/18 11:30 Temperature 97.8 F 98.1 F Pulse Rate 75 72 70 Respiratory Rate 16 16 Blood Pressure 119/63 136/64 Pulse Oximetry 96 96 02/28/18 14:31 02/28/18 15:00 02/28/18 16:00 Temperature 98.6 F Pulse Rate 89 Respiratory Rate 16 16 Blood Pressure 128/75 Pulse Oximetry 96 96 Intake & Output 02/27/18 02/28/18 02/28/18 18:59 06:59 18:59 Intake Total 1150 / 1150 240 / 240 600 / 600 Output Total 2075 / 2075 250 / 250 850 / 850 Balance -925 / -925 -10 / -10 -250 / -250 Weight 79.5 kg Intake: IV 150 / 150 300 / 300 Ancef 1 GM Premix Inj 2 gm In 100 / 100 100 ml @ 0 mls/hr IV.SIG .K- MED ONE Rx#:[id number] Ancef 2 GM Premix Inj 2 gm In 50 / 50 100 / 100 50 ml @ 100 mls/hr IV.SIG Q8H [facility] Rx#:[id number] Oral 0 / 0 240 / 240 300 / 300 Anesthesia Amount 1000 / 1000 Output: Urine 850 / 850 Estimated Blood Loss 100 / 100 Urine Amount (Catheter) 1974 250 / 250 Indwelling Temp Sensing 1974 250 / 250 Catheter Other: # Bowel Movements 0 Result Diagrams: 02/28/18 03:40 02/28/18 03:40 Imaging: Chest X-Ray 02/27/18 00:00 CONCLUSION: 1. Bilateral calcified pleural plaques characteristic of asbestosis exposure. 2. Status post CABG. 3. No acute cardiopulmonary disease. Objective Remarks: GENERAL: 87-year-old male currently resting in chair in no acute distress SKIN: Warm and dry. HEENT: Normocephalic/atraumatic Neck there is no JVD. right IJ introducer sheath with transvenous pacer has been removed CHEST: unlabored. equal chest rise. nc o2. Small left chest incision clean dry and intact. CARDIOVASCULAR: normal rate, regular rhythm. ABDOMEN: Soft, nontender, nondistended. No guarding. MUSCULOSKELETAL: Pulses 2+. No peripheral edema. bilateral groin sites are clean and dry, no evidence of hematoma, dressing intact. distal LE pulses are Dopplerable. NEUROLOGICAL: No focal deficit. Cranial nerves II through XII grossly intact Assessment and Plan - Assessment and Plan Plan: Assessment: 87yM POD 1 s/p TAVR via failed left subclavian access and ultimately left groin access after balloon dilation and covered stent placement. keep in icu. watch LE vascular checks closely. S/p TAVR today via groin access - anticoagulation per java lead - mivf - close uop monitoring - frequent neurovascular checks - frequent groin checks - OOB after flat time Peripheral arterial disease s/p left femoral covered stent 02/27 - frequent neurovascular checks - anticoagulation per Dr. Monroe Hypertension - goal sbp < 180 - add back antihypertensives as needed - currently on clevidipine for immediate post-operative control of hypertension Congestive Heart Failure secondary to valvulopathy - mivf today - may need diuresis beginning after POD 1 Hyperlipidemia - restart home statin CAD - restart home ASA - statin COPD Sleep Apnea - nebs prn - wean o2 for goal spo2 > 90% - pulmonary toilet - OOB after flat time First degree AVB new left bundle branch block - EP study - keep transvenous pacer - keep on telemetry Carotid Artery Disease TIAs - frequent neuro checks BPH - restart home meds - d/c cox in AM Seizure disorder NOS - restart home keppra Anxiety - restart 1/2-dose of home xanax (0.5mg po BID prn) Hypothyroidism - restart home synthroid Gout - restart home allopurinol BPH: -Restart tamsulosin advance diet after flat time SCDs AM CBC, BMP Critical care medicine will continue to follow while patient remains in the CVICU.
--- NOTE | 2018-02-28 20:59 | ECG ---
Date Performed: 02/27/2018 Time Performed: 21:04:04 PTAGE: 87 years EKG: Sinus rhythm . Ant/septal and lateral T wave changes are nonspecific Low QRS voltages in precordial leads Compared to previous tracing, [place] sinus conduction has replaced ventricular pacing Borderline ECG PREVIOUS TRACING : 02/27/2018 12.16 DOCTOR: Jt Rhodes Interpretating Date/Time 02/28/2018 20:58:48
--- NOTE | 2018-02-28 20:59 | ECG ---
Date Performed: 02/27/2018 Time Performed: 12:16:14 PTAGE: 87 years EKG: Ventricular pacing Pacemaker rhythm - no further analysis Compared to previous tracing, the rhythm is now ventricularly paced Abnormal ECG PREVIOUS TRACING : 02/27/2018 05.52 DOCTOR: Jt Rhodes Interpretating Date/Time 02/28/2018 20:58:17
--- NOTE | 2018-02-28 20:59 | ECG ---
Date Performed: 02/28/2018 Time Performed: 03:51:06 PTAGE: 87 years EKG: Sinus rhythm with borderline 1st degree A-V block. Possible septal infarct - age undetermined Lateral T wave ahumada ges are nonspecific Since the previous tracing, no significant change noted Abnormal ECG PREVIOUS TRACING : 02/27/2018 21.04 DOCTOR: Jt Rhodes Interpretating Date/Time 02/28/2018 20:58:59
[2018-03-01 06:33] VITALS: RESP 18
[2018-03-01 08:38] VITALS: BP 151/63; TEMP 98; O2SAT 97
--- NOTE | 2018-03-01 08:49 | P.PNCA ---
Subjective Interval history: RN at bedside. No cardiac complaints. Some soreness in pacemaker and groin sites but not bad. Having issues with urinary retention, reportedly last bladder scan showed 200 cc residual. Follows with Dr. Lamb, urology, as outpatient. Urology has been consulted. Medications and Allergies Allergies Allergy/AdvReac Type Severity Reaction Status Date / Time No Known Allergies Allergy Verified 02/03/18 10:33 Home Medications Medication Instructions Recorded Confirmed Type allopurinol 100 mg PO BID 12/24/17 02/27/18 History alprazolam [Xanax] 1 mg PO BID PRN 12/24/17 02/27/18 History arformoterol [Brovana] 15 mcg INHALATION Q12H 12/24/17 02/27/18 History atorvastatin 80 mg PO DAILY 12/24/17 02/27/18 History cyanocobalamin-cobamamide [B-12 1 cc 12/24/17 History Plus] levetiracetam [Keppra] 500 mg PO Q12H 12/24/17 02/27/18 History levothyroxine 25 mcg PO DAILY 12/24/17 02/27/18 History mometasone [Asmanex Twisthaler] 2 inh INHALATION QPM 12/24/17 02/27/18 History torsemide [Demadex] 20 mg PO DAILY 12/24/17 02/27/18 History trandolapril 1 mg PO DAILY 12/24/17 02/27/18 History clopidogrel [Plavix] 75 mg PO DAILY 01/28/18 02/27/18 History tamsulosin [Flomax] 0.4 mg PO DAILY 01/28/18 02/27/18 History nitroglycerin [Nitrostat] See Label Instructions .ROUTE 02/13/18 02/27/18 History .COMPLEX Active Medications: Active Medications Allopurinol (Zyloprim) 100 mg PO BID [facility] Last Admin: 02/28/18 20:45 Dose: 100 mg Alprazolam (Xanax) 0.5 mg PO BID PRN PRN Reason: Anxiety Aspirin (Aspirin Chew) 81 mg PO DAILY [facility] Last Admin: 02/28/18 09:06 Dose: 81 mg Atorvastatin Calcium (Lipitor) 80 mg PO DAILY [facility] Last Admin: 02/28/18 09:05 Dose: 80 mg Clonidine HCl (Catapres) 0.2 mg PO Q6H PRN PRN Reason: SBP > 160 mmHg Clopidogrel Bisulfate (Plavix) 75 mg PO DAILY [facility] Last Admin: 02/28/18 09:05 Dose: 75 mg Ezetimibe (Zetia) 10 mg PO DAILY [facility] Last Admin: 02/28/18 09:06 Dose: 10 mg Ferrous Sulfate (Ferosul) 325 mg PO DAILY [facility] Last Admin: 02/28/18 09:06 Dose: 325 mg Furosemide (Lasix) 20 mg PO DAILY [facility] Last Admin: 02/28/18 09:06 Dose: 20 mg Hydralazine HCl (Apresoline Inj) 10 mg IV.PUSH Q30M PRN PRN Reason: SBP > 160 mmHg Sodium Chloride (Ns Inj) 500 mls @ 30 mls/hr IV.SIG .Q10H [facility] Last Admin: 02/28/18 16:25 Dose: Not Given Magnesium Sulfate 4 gm/ Sodium (Chloride) 100 mls @ 50 mls/hr IV.SIG UNSCH PRN PRN Reason: For Magnesium 0.9 - 1.1 mg/dL Magnesium Sulfate 2 gm/ Sodium (Chloride) 100 mls @ 50 mls/hr IV.SIG UNSCH PRN PRN Reason: For Magnesium 1.2 - 1.6 mg/dL Potassium Chloride (Kcl 40 Meq Premix Inj) 40 meq in 100 mls @ 25 mls/hr IV.SIG Q2H PRN PRN Reason: For Potassium 2.8 - 3.2 mEq/L Potassium Chloride (Kcl 20 Meq Premix Inj) 20 meq in 100 mls @ 50 mls/hr IV.SIG Q2H PRN PRN Reason: For Potassium 3.3 - 3.5 mEq/L Potassium Chloride (Kcl 40 Meq Premix Inj) 40 meq in 100 mls @ 25 mls/hr IV.SIG UNSCH PRN PRN Reason: For Potassium 3.3 - 3.5 mEq/L Potassium Chloride (Kcl 20 Meq Premix Inj) 20 meq in 100 mls @ 50 mls/hr IV.SIG Q2H PRN PRN Reason: For Potassium 2.8 - 3.2 mEq/L Potassium Phosphate 30 mmol/ (Sodium Chloride) 260 mls @ 42 mls/hr IV.SIG UNSCH PRN PRN Reason: SEE LABEL COMMENTS Sodium Phosphate 30 mmol/ (Sodium Chloride) 260 mls @ 42 mls/hr IV.SIG UNSCH PRN PRN Reason: For Phosphorus < 2.5 mg/dL Levetiracetam (Keppra) 500 mg PO Q12H [facility] Last Admin: 02/28/18 21:00 Dose: 500 mg Levothyroxine Sodium (Synthroid) 25 mcg PO DAILY@0600 [facility] Last Admin: 03/01/18 05:19 Dose: 25 mcg Lisinopril (Prinivil) 5 mg PO DAILY [facility] Last Admin: 02/28/18 09:05 Dose: 5 mg Magnesium Oxide (Mag-Ox) 800 mg PO UNSCH PRN PRN Reason: For Magnesium 1.2 - 1.6 mg/dL Morphine Sulfate (Morphine Inj) 2 mg IV.PUSH Q30M PRN PRN Reason: BREAKTHROUGH PAIN Last Admin: 02/28/18 02:39 Dose: 2 mg Ondansetron HCl (Zofran Inj) 4 mg IV.PUSH Q4H PRN PRN Reason: NAUSEA Oxycodone/Acetaminophen (Percocet 5/325 Mg) 1 tab PO Q6H PRN PRN Reason: PAIN SCALE 3 TO 5 Last Admin: 03/01/18 05:19 Dose: 1 tab Ptownmed ( Arformoterol [ Brovana] 15 Mcg) 0 each NEB Q12HR NEB [facility] Ptownmed(Mometasone [Asmanex Twisthaler] 2 Inh) 0 each INH QPM [facility] Potassium Bicarb/Potassium Chloride (K-Lyte Cl Eff) 50 meq PO UNSCH PRN PRN Reason: For Potassium 3.3 - 3.5 mEq/L Potassium Phosphate (K-Phos Original) 2,000 mg PO Q4H PRN PRN Reason: Phosphorus Less Than 2.5 mg/dL Potassium Phosphate (K-Phos Original) 2,000 mg PO UNSCH PRN PRN Reason: SEE LABEL COMMENTS Tamsulosin HCl (Flomax) 0.4 mg PO DAILY [facility] Last Admin: 02/28/18 09:05 Dose: 0.4 mg Torsemide (Demadex) 20 mg PO DAILY [facility] Last Admin: 02/28/18 09:06 Dose: 20 mg Physical Exam Vital signs: Vital Signs 02/28/18 11:00 02/28/18 11:30 02/28/18 14:31 Temperature 98.1 F Pulse Rate 72 70 Respiratory Rate 16 Blood Pressure 136/64 Pulse Oximetry 96 96 02/28/18 15:00 02/28/18 16:00 02/28/18 19:00 Temperature 98.6 F 96 F L Pulse Rate 89 77 Respiratory Rate 16 16 20 Blood Pressure 128/75 119/49 L Pulse Oximetry 96 95 02/28/18 21:30 02/28/18 23:00 03/01/18 01:00 Temperature 98.5 F Pulse Rate 78 Respiratory Rate 18 16 Blood Pressure 124/60 Pulse Oximetry 96 95 03/01/18 03:00 03/01/18 07:28 03/01/18 08:34 Temperature 99 F 98 F Pulse Rate 74 72 76 Respiratory Rate 18 18 Blood Pressure 138/63 151/63 H Pulse Oximetry 95 97 03/01/18 08:38 Temperature Pulse Rate Respiratory Rate Blood Pressure Pulse Oximetry 97 Intake & Output 02/28/18 03/01/18 03/01/18 18:59 06:59 18:59 Intake Total 650 / 650 300 / 300 Output Total 850 / 850 340 / 340 Balance -200 / -200 -40 / -40 Weight 171 lb 11.841 oz Intake: IV 350 / 350 Ancef 2 GM Premix Inj 2 gm In 150 / 150 50 ml @ 100 mls/hr IV.SIG Q8H [facility] Rx#:[id number] Oral 300 / 300 300 / 300 Output: Urine 850 / 850 340 / 340 Narrative: GENERAL: Well-developed well-nourished. In no acute distress. NECK: No carotid bruits. No JVD. CARDIOVASCULAR: Regular rate and rhythm. 1/6 systolic murmur appreciated. RESPIRATORY: No accessory muscle use. Clear to auscultation. Breath sounds equal bilaterally. MUSCULOSKELETAL: No clubbing or cyanosis. No edema. Left arm in a sling. NEUROLOGICAL: Awake and alert. Normal speech. SKIN: Pacemaker in place left chest wall with Steri-Strips in place and no significant ecchymosis. Bilateral groin ecchymosis, L>R, with minimal tenderness, no swelling, and intact pulses. - Urinary Catheter Management Indwelling Temp Sensing Catheter Cath placed during this visit: yes, but has since been removed by the nurse Reason for continuing: Decision to DC catheter Insertion date: 02/27/18 Insertion time: 07:40 Removal date: 02/28/18 Removal time: 00:00 Straight Cath placed during this visit: yes, but has since been removed by the nurse Reason for continuing: Chronic Urinary Retention Insertion date: 02/28/18 Insertion time: 23:30 Removal date: 02/28/18 Removal time: 23:35 Results 02/28/18 03:40 02/28/18 03:40 Cardiac Enzymes 02/28/18 Range/Units 03:40 AST 30 (15-37) U/L CBC 02/28/18 Range/Units 03:40 WBC 9.7 (4.0-11.0) th/mm3 RBC 2.98 L (4.50-5.90) mil/mm3 Hgb 9.6 L (13.0-17.0) gm/dL Hct 29.3 L (39.0-51.0) % Plt Count 138 L (150-450) th/mm3 Comprehensive Metabolic Panel 02/28/18 Range/Units 03:40 Sodium 142 (136-145) meq/L Potassium 4.0 (3.5-5.1) meq/L Chloride 107 (98-107) meq/L Carbon Dioxide 27.0 (21.0-32.0) meq/L BUN 16 (7-18) mg/dL Creatinine 1.30 (0.60-1.30) mg/dL Calcium 7.9 L (8.5-10.1) mg/dL AST 30 (15-37) U/L ALT 20 (12-78) U/L Alkaline Phosphatase 89 (45-117) U/L Total Protein 6.3 L (6.4-8.2) g/dL Albumin 2.9 L (3.4-5.0) g/dL Intake and Output 02/28/18 03/01/18 03/01/18 22:59 06:59 14:59 Intake Total 550 / 550 300 / 300 Output Total 850 / 850 340 / 340 Balance -300 / -300 -40 / -40 Intake: IV 250 / 250 Ancef 2 GM Premix Inj 2 gm In 50 / 50 50 ml @ 100 mls/hr IV.SIG Q8H [facility] Rx#:[id number] Oral 300 / 300 300 / 300 Output: Urine 850 / 850 340 / 340 Other: Weight 171 lb 11.841 oz - Imaging and Cardiology Imaging: Impressions Chest X-Ray 02/27/18 00:00 CONCLUSION: 1. Bilateral calcified pleural plaques characteristic of asbestosis exposure. 2. Status post CABG. 3. No acute cardiopulmonary disease. 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 Patient was taken for electrophysiology study and permanent pacemaker placed. Transcatheter valve replacement Acute on chronic diastolic congestive heart failure - gentle diuresis Initiate low-dose angiotensin-converting enzyme inhibitor. Patient has history of benign prostatic hypertrophy on Flomax. Patient with issues of urinary retention, urology has been consulted, may need to go home with Rivera today. Evaluated by PT, C ordered, case management on board. Discussed Condition With: Patient, RN, Dr. Monroe
[2018-03-01] MEDS: Ferrous Sulfate 325 MG Tablet PO SCH (09:34)
[2018-03-01] MEDS: Allopurinol 100 MG Tablet PO SCH (09:34)
[2018-03-01] MEDS: Lisinopril 5 MG Tablet PO SCH (09:35)
[2018-03-01] MEDS: Ezetimibe 10 MG Tablet PO SCH (09:35)
[2018-03-01] MEDS: Furosemide 20 MG Tablet PO SCH (09:35)
[2018-03-01] MEDS: Torsemide 20 MG Tablet PO SCH (09:36)
[2018-03-01 10:16] VITALS: PULSE 80
[2018-03-01 11:27] LABS: Hematocrit 24.7 % (39.0-51.0); Hemoglobin 8.4 gm/dL (13.0-17.0); Mean Corpuscular HGB Conc 34.1 % (32.0-36.0); Mean Corpuscular Hemoglobin 33.4 pg (27.0-34.0); Platelet Count 104 th/mm3 (150-450); Red Blood Count 2.52 mil/mm3 (4.50-5.90); Red Cell Distribution Width 13.9 % (11.6-17.2); White Blood Count 8.5 th/mm3 (4.0-11.0)
[2018-03-01 11:43] LABS: Carbon Dioxide 27.6 meq/L (21.0-32.0); Potassium 3.6 meq/L (3.5-5.1)
--- NOTE | 2018-03-01 14:29 | P.CONURO ---
History of Present Illness Service: Urology Consult date: 03/01/18 Requesting Physician: James Monroe Reason for Consult: Post/op retention Primary Care Provider: Uziel Franklin MD Chief Complaint: Aortic valve stenosis History of Present Illness: Pt is s/p TAVR on 02/27/18. Developed post/op retention. He is on Flomax already. He has a h/o BPH and his is Dr Lamb. Urology was contacted earlier today, recommended to place cox continue flomax and f/u with dr Lamb as an outpt for voiding trial. He left already at the time of this visit Review of Systems All other systems reviewed negative except as stated in HPI [facility] - History History Provided By: Patient, Medical Record - Medical History Medical History: Medical History (Last Reviewed 02/28/18 @ 08:34 by Ludwig Pina) Aortic stenosis Apnea BPH (benign prostatic hyperplasia) COPD (chronic obstructive pulmonary disease) CPAP (continuous positive airway pressure) dependence Carotid artery disease Coronary artery disease DJD (degenerative joint disease) First degree atrioventricular block HTN (hypertension) Hx of myocardial infarction Hyperlipidemia PAD (peripheral artery disease) Paroxysmal atrial fibrillation Rotator cuff dysfunction Sleep apnea TIA (transient ischemic attack) - Surgical History Surgical History: Surgical History (Last Reviewed 02/28/18 @ 08:34 by Ludwig Pina) H/O heart artery stent Hip joint replacement status S/P CABG x 2 - Family History Family History: Family History (Last Reviewed 02/27/18 @ 21:26 by José Tirado MD) Brother Asthma Myocardial infarct Hypertension Father Asthma Myocardial infarct Hypertension Sister S/P TAVR (transcatheter aortic valve replacement) Hypertension - Tobacco History Smoking Status: Unknown if ever smoked - Alcohol History How Often Do You Have a Drink Containing Alcohol: Monthly or less - Substance Use History Substance History: No History of Abuse Medications and Allergies Active Medications: Active Medications Allopurinol (Zyloprim) 100 mg PO BID [facility] Last Admin: 03/01/18 09:34 Dose: 100 mg Alprazolam (Xanax) 0.5 mg PO BID PRN PRN Reason: Anxiety Aspirin (Aspirin Chew) 81 mg PO DAILY [facility] Last Admin: 03/01/18 09:39 Dose: 81 mg Atorvastatin Calcium (Lipitor) 80 mg PO DAILY [facility] Last Admin: 03/01/18 09:34 Dose: 80 mg Clonidine HCl (Catapres) 0.2 mg PO Q6H PRN PRN Reason: SBP > 160 mmHg Clopidogrel Bisulfate (Plavix) 75 mg PO DAILY [facility] Last Admin: 03/01/18 09:34 Dose: 75 mg Ezetimibe (Zetia) 10 mg PO DAILY [facility] Last Admin: 03/01/18 09:35 Dose: 10 mg Ferrous Sulfate (Ferosul) 325 mg PO DAILY [facility] Last Admin: 03/01/18 09:34 Dose: 325 mg Furosemide (Lasix) 20 mg PO DAILY [facility] Last Admin: 03/01/18 09:35 Dose: 20 mg Hydralazine HCl (Apresoline Inj) 10 mg IV.PUSH Q30M PRN PRN Reason: SBP > 160 mmHg Sodium Chloride (Ns Inj) 500 mls @ 30 mls/hr IV.SIG .Q10H [facility] Last Admin: 02/28/18 16:25 Dose: Not Given Magnesium Sulfate 4 gm/ Sodium (Chloride) 100 mls @ 50 mls/hr IV.SIG UNSCH PRN PRN Reason: For Magnesium 0.9 - 1.1 mg/dL Magnesium Sulfate 2 gm/ Sodium (Chloride) 100 mls @ 50 mls/hr IV.SIG UNSCH PRN PRN Reason: For Magnesium 1.2 - 1.6 mg/dL Potassium Chloride (Kcl 40 Meq Premix Inj) 40 meq in 100 mls @ 25 mls/hr IV.SIG Q2H PRN PRN Reason: For Potassium 2.8 - 3.2 mEq/L Potassium Chloride (Kcl 20 Meq Premix Inj) 20 meq in 100 mls @ 50 mls/hr IV.SIG Q2H PRN PRN Reason: For Potassium 3.3 - 3.5 mEq/L Potassium Chloride (Kcl 40 Meq Premix Inj) 40 meq in 100 mls @ 25 mls/hr IV.SIG UNSCH PRN PRN Reason: For Potassium 3.3 - 3.5 mEq/L Potassium Chloride (Kcl 20 Meq Premix Inj) 20 meq in 100 mls @ 50 mls/hr IV.SIG Q2H PRN PRN Reason: For Potassium 2.8 - 3.2 mEq/L Potassium Phosphate 30 mmol/ (Sodium Chloride) 260 mls @ 42 mls/hr IV.SIG UNSCH PRN PRN Reason: SEE LABEL COMMENTS Sodium Phosphate 30 mmol/ (Sodium Chloride) 260 mls @ 42 mls/hr IV.SIG UNSCH PRN PRN Reason: For Phosphorus < 2.5 mg/dL Levetiracetam (Keppra) 500 mg PO Q12H [facility] Last Admin: 02/28/18 21:00 Dose: 500 mg Levothyroxine Sodium (Synthroid) 25 mcg PO DAILY@0600 [facility] Last Admin: 03/01/18 05:19 Dose: 25 mcg Lisinopril (Prinivil) 5 mg PO DAILY [facility] Last Admin: 03/01/18 09:35 Dose: 5 mg Magnesium Oxide (Mag-Ox) 800 mg PO UNSCH PRN PRN Reason: For Magnesium 1.2 - 1.6 mg/dL Morphine Sulfate (Morphine Inj) 2 mg IV.PUSH Q30M PRN PRN Reason: BREAKTHROUGH PAIN Last Admin: 02/28/18 02:39 Dose: 2 mg Ondansetron HCl (Zofran Inj) 4 mg IV.PUSH Q4H PRN PRN Reason: NAUSEA Oxycodone/Acetaminophen (Percocet 5/325 Mg) 1 tab PO Q6H PRN PRN Reason: PAIN SCALE 3 TO 5 Last Admin: 03/01/18 05:19 Dose: 1 tab Ptownmed ( Arformoterol [ Brovana] 15 Mcg) 0 each NEB Q12HR NEB [facility](Mometasone [Asmanex Twisthaler] 2 Inh) 0 each INH QPM [facility] Potassium Bicarb/Potassium Chloride (K-Lyte Cl Eff) 50 meq PO UNSCH PRN PRN Reason: For Potassium 3.3 - 3.5 mEq/L Potassium Phosphate (K-Phos Original) 2,000 mg PO Q4H PRN PRN Reason: Phosphorus Less Than 2.5 mg/dL Potassium Phosphate (K-Phos Original) 2,000 mg PO UNSCH PRN PRN Reason: SEE LABEL COMMENTS Tamsulosin HCl (Flomax) 0.4 mg PO DAILY [facility] Last Admin: 03/01/18 09:34 Dose: 0.4 mg Torsemide (Demadex) 20 mg PO DAILY [facility] Last Admin: 03/01/18 09:36 Dose: 20 mg Allergies Allergy/AdvReac Type Severity Reaction Status Date / Time No Known Allergies Allergy Verified 02/03/18 10:33 Home Medications Medication Instructions Recorded Confirmed Type allopurinol 100 mg PO BID 12/24/17 02/27/18 History alprazolam [Xanax] 1 mg PO BID PRN 12/24/17 02/27/18 History arformoterol [Brovana] 15 mcg INHALATION Q12H 12/24/17 02/27/18 History atorvastatin 80 mg PO DAILY 12/24/17 02/27/18 History cyanocobalamin-cobamamide [B-12 1 cc 12/24/17 History Plus] levetiracetam [Keppra] 500 mg PO Q12H 12/24/17 02/27/18 History levothyroxine 25 mcg PO DAILY 12/24/17 02/27/18 History mometasone [Asmanex Twisthaler] 2 inh INHALATION QPM 12/24/17 02/27/18 History torsemide [Demadex] 20 mg PO DAILY 12/24/17 02/27/18 History trandolapril 1 mg PO DAILY 12/24/17 02/27/18 History clopidogrel [Plavix] 75 mg PO DAILY 01/28/18 02/27/18 History tamsulosin [Flomax] 0.4 mg PO DAILY 01/28/18 02/27/18 History nitroglycerin [Nitrostat] See Label Instructions .ROUTE 02/13/18 02/27/18 History .COMPLEX Physical Exam Vital Signs - 24 hr 02/28/18 14:31 02/28/18 15:00 02/28/18 16:00 Temperature 98.6 F Pulse Rate 89 Respiratory Rate 16 16 Blood Pressure 128/75 Pulse Oximetry 96 96 02/28/18 19:00 02/28/18 21:30 02/28/18 23:00 Temperature 96 F L 98.5 F Pulse Rate 77 78 Respiratory Rate 20 18 Blood Pressure 119/49 L 124/60 Pulse Oximetry 95 96 95 03/01/18 01:00 03/01/18 03:00 03/01/18 07:28 Temperature 99 F Pulse Rate 74 72 Respiratory Rate 16 18 Blood Pressure 138/63 Pulse Oximetry 95 03/01/18 08:34 03/01/18 08:38 03/01/18 10:00 Temperature 98 F Pulse Rate 76 80 Respiratory Rate 18 Blood Pressure 151/63 H Pulse Oximetry 97 97 03/01/18 11:23 Temperature Pulse Rate 80 Respiratory Rate Blood Pressure Pulse Oximetry Laboratory Results - last 24 hr 03/01/18 03/01/18 11:12 11:12 WBC 8.5 RBC 2.52 L Hgb 8.4 L Hct 24.7 L MCV 98.0 MCH 33.4 MCHC 34.1 RDW 13.9 Plt Count 104 L MPV 9.0 Sodium 136 Potassium 3.6 Chloride 101 Carbon Dioxide 27.6 Anion Gap 7 BUN 23 H Creatinine 1.35 H Estimated GFR 50 L Random Glucose 113 H Calcium 8.0 L Result Diagrams: 03/01/18 11:12 03/01/18 11:12 Imaging: ITS Impressions Chest X-Ray 02/27/18 00:00 CONCLUSION: 1. Bilateral calcified pleural plaques characteristic of asbestosis exposure. 2. Status post CABG. 3. No acute cardiopulmonary disease. Assessment and Plan - Plan 87y.o m s/p TAVR Urology consulted for post/op retention - Continue care as per primary team Pt can be d/c home with Cox cath and flomax Pt voided 500cc prior to d/c so cox was not placed, he refused Follow up with Dr Lamb as an outpt Discussed Condition With: Dr Sanchez PHILLIPS attending who agrees with this plan
== END 2018-03-01 13:55 | disposition home health service (06) | DRG 266 ==
LOC: HSDI 05:25 → HDIC 05:27 → HCVI 11:15 → HCIS 02-28 21:29 → HCPC 02-28 21:31
PROVIDERS: ADMIT Internal Medicine; ATTEND Internal Medicine
PROC: TAVRHYB (ICD-10-PCS; 2018-02-27 07:30)
CPT/HCPCS: 33208; 33210; 33284; 33286; 33361; 36415; 36430; 37220; 71010; 71045; 80048; 80053; 85002; 85025; 85027; 85610; 86850; 86900; 86901; 86923; 92986; 93005; 93308; 93312; 93320; 93325; 93620; 94150; 97162; 97530; A4646; C1725; C1730; C1760; C1769; C1779; C1785; C1893; G0168; G0269; J0690; J1100; J1644; J1940; J2001; J2250; J2270; J2370; J2405; J2704; J2720; J3010; J3370; J7030; J7050; J7120; P9016; Q9950; Q9965; Q9967